=== PATIENT | male | born 1995 | race Caucasian/White ===

== ENCOUNTER 2020-06-03 14:06 | Emergency (ER) | payer MEDICAID, SELFPAY ==
[2020-06-03 14:14] VITALS: BP 156/90; PULSE 98; RESP 18; TEMP 36.6; O2SAT 98; BMI 33.9
--- NOTE | 2020-06-03 14:14 | ED.GENADULT ---
HPI - General Adult General Chief complaint: Skin/Abscess/Foreign Body <Mary Vega NP - Last Filed: 06/03/20 14:16> Stated complaint: abscess of neck <Mary Vega NP - Last Filed: 06/03/20 14:16> Time Seen by Provider: 06/03/20 14:11 <Mary Vega NP - Last Filed: 06/03/20 14:16> Source: patient <DENG De León - Last Filed: 06/03/20 15:36> Mode of arrival: ambulatory <DENG De León Last Filed: 06/03/20 15:36> History of Present Illness HPI narrative: 25-year-old male with past medical history of asthma, intellectual disability, ROSHAN, seizures, presenting to the ED complaining of abscess/infection to right neck. Admits was seen at clinic 2 days ago, prescribed doxycycline which she has taken 4 doses of without relief, went back to clinic today for re-evaluation and was sent to ED for I&D. Admits abscess started draining yesterday. Denies fever, chills <DENG De León Last Filed: 06/03/20 15:36> Onset (ago): day(s) <DENG De León Last Filed: 06/03/20 15:36> Related Data Home medications: Previous Rx's Medication Instructions Recorded cephalexin 500 mg PO QID 7 Days #28 cap 06/03/20 <WOOD Stock Last Filed: 06/03/20 14:16> Allergies/adverse reactions: Allergies Allergy/AdvReac Type Severity Reaction Status Date / Time No Known Allergies Allergy Unverified 10/30/19 18:43 lactose intolerance Allergy Unknown Uncoded 11/15/18 00:00 <Mary Vega NP - Last Filed: 06/03/20 14:16> Review of Systems Review of Systems: Constitutional: No Fever, No Chills Cardiovascular: No Chest Pain, No SOB Respiratory: No Cough Skin: +abscess <DENG De León Last Filed: 06/03/20 15:36> Yes all other systems are reviewed and are negative <DENG De León Last Filed: 06/03/20 15:36> [facility] Past Medical History Attestation statement: The following information was validated with the patient. <DENG De León - Last Filed: 06/03/20 15:36> Medical History: Medical History (Updated 06/03/20 @ 15:26 by DENG De León) Asthma Intellectual disability ROSHAN (obstructive sleep apnea) Seizure <Mary Vega NP - Last Filed: 06/03/20 14:16> Social History Social History: Social History Advance Directives: Yes Advance Directives Information Provided: Yes Advance Directives on File: No <Mary Vega NP - Last Filed: 06/03/20 14:16> Physical Exam Vital Signs: Vital Signs: Last Vital Signs Temp 98 F 06/03/20 14:14 Pulse 98 06/03/20 14:14 Resp 18 06/03/20 14:14 BP 156/90 H 06/03/20 14:14 Pulse Ox 98 06/03/20 14:14 Body Mass Index 33.9 <Mary Vega NP - Last Filed: 06/03/20 14:16> Vital Signs: Last Vital Signs Temp 98 F 06/03/20 14:14 Pulse 98 06/03/20 14:14 Resp 18 06/03/20 14:14 BP 156/90 H 06/03/20 14:14 Pulse Ox 98 06/03/20 14:14 Body Mass Index 33.9 <DENG De León - Last Filed: 06/03/20 15:36> Const: General: cooperative, healthy appearing and no acute distress <DENG De León - Last Filed: 06/03/20 15:36> Limitations: no limitations <DENG De León - Last Filed: 06/03/20 15:36> HENMT: Head: Yes normal to inspection <DENG De León - Last Filed: 06/03/20 15:36> Ears: hearing grossly normal bilaterally <DENG De León - Last Filed: 06/03/20 15:36> General nose exam: Normal external nose present <DENG De León - Last Filed: 06/03/20 15:36> Face and sinus: Yes normal facial exam <DENG De León - Last Filed: 06/03/20 15:36> Eyes: General: appearance normal, both eyes and all related structures <DENG De León - Last Filed: 06/03/20 15:36> EOM: EOMs intact bilaterally <DENG De León - Last Filed: 06/03/20 15:36> Neck: Neck: Yes normal visual inspection and Yes no meningeal signs <DENG De León - Last Filed: 06/03/20 15:36> Resp: Effort & Inspection: normal respiratory effort <DENG De León - Last Filed: 06/03/20 15:36> Cardio: Rate: regular rate <DENG De León - Last Filed: 06/03/20 15:36> Skin: Other: + draining abscess noted to right superior neck with central fluctuance, surrounding induration and cellulitis. <DENG De León - Last Filed: 06/03/20 15:36> Neuro: General: no meningeal signs <DENG De León - Last Filed: 06/03/20 15:36> Gait exam (Neuro): Normal gait present <DENG De León - Last Filed: 06/03/20 15:36> Extrem: General: Yes normal to inspection <DENG De León - Last Filed: 06/03/20 15:36> Course Course Course Narrative: 1414-This is a rapid medical exam. Abscess to right sided neck since sunday. No fevers/chills. Seen at [facility] and started on doxycyline BID, took 4 doses but no better. Will need I&D. HD stable. Deferred additional HPI, ROS, and PE to primary provider. <Mary Vega NP - Last Filed: 06/03/20 14:16> Procedures Abscess I/D Site: neck <DENG De León - Last Filed: 06/03/20 15:36> Side (if applicable): right <DENG De León - Last Filed: 06/03/20 15:36> Local Anesthetic: lidocaine 1% <DENG De León - Last Filed: 06/03/20 15:36> Amount of anesthesia used (mL): 4 <DENG De León - Last Filed: 06/03/20 15:36> Technique: incised with blade <DENG De León - Last Filed: 06/03/20 15:36> Sent for culture/gram staining?: No <DENG De León - Last Filed: 06/03/20 15:36> Packing used?: none <DENG De León - Last Filed: 06/03/20 15:36> Medical Decision Making MDM Narrative Medical decision making narrative: On exam VSS, NAD/well-appearing, physical exam as above. Will I & D abscess, and at Keflex to regimen. Patient should be re-evaluated in 2 days <DENG De León - Last Filed: 06/03/20 15:36> Discharge Plan Discharge Clinical Impression: Abscess of skin or subcutaneous tissue, Cellulitis <Mary Vega NP - Last Filed: 06/03/20 14:16> Patient Disposition: Home, Self-Care <Mary Vega NP - Last Filed: 06/03/20 14:16> Instructions: Cellulitis (ED), Abscess (ED) <Mary Vega NP - Last Filed: 06/03/20 14:16> Additional Instructions: Your abscesses drained today in the ED. Continue taking previously prescribed doxycycline, in addition take Keflex. You need to be re-evaluated in 2 days. The area is worsening, growing, or you have fevers return to the ED sooner Leyla abscesos se drenaron hoy en el servicio de urgencias. Contin?e tomando doxiciclina previamente recetada, adem?s tome Keflex. Debe ser reevaluado en 2 d?as. El ?catalina est? empeorando, creciendo o tiene fiebre y regresa antes al servicio de urgencias. <Mary Vega NP - Last Filed: 06/03/20 14:16> Prescriptions: New cephalexin 500 mg capsule 500 mg PO QID 7 Days Qty: 28 RF: 0 <WOOD Stock Last Filed: 06/03/20 14:16> Referrals: [facility] [Primary Care Provider] - 2 days (For abscess check) <Mary Vega MACHINE HOSE CUTTER - Last Filed: 06/03/20 14:16> Print Language: Slovak <Mary Vega NP - Last Filed: 06/03/20 14:16>
[2020-06-03] MEDS: Lidocaine HCl 1 % MPF 5 ML VIAL SUBCUT (14:49)
== END 2020-06-03 15:45 | disposition home or self-care (01) ==
PROVIDERS: Emergency Provider Emergency Medicine
DX: L02.11 Cutaneous abscess of neck (principal); M54.2 Cervicalgia; Z79.899 Other long term (current) drug therapy
CPT/HCPCS: 10060; 99283; 99284

== ENCOUNTER 2021-01-18 09:55 | Outpatient (REF) | payer MEDICAID, SELFPAY ==
--- NOTE | 2021-01-18 16:29 | MHC.AU.AEV ---
Adult Audiological Evaluation Date of Visit: 01/18/21 Compliance Field Technician Used: Beninese- By Phone Reason for Appointment: Audiological evaluation due to concern for decreased hearing in the left ear. Mr. Manning is developmentally delayed and was accompanied by his mother, who provided most of today's history and communication. She notes that he has been complaining that his left ear feels blocked. He has had cerumen removed in the past. She also notes that he turns the volume on the TV up very loud. Does patient feel they have a hearing loss?: Yes If Yes, Which Ear?: Left Ear Has hearing been tested previously?: No Ear History: Recent Ear Pain: Left Ear Family History of Hearing Loss?: Yes Blocked/Full Sensation in Ear(s): Left Ear Medical History: Medical History: Developmental Disorder/Delay Medical History: Allergies, sinus congestion, history of seizure disorder, asthma, TMJ, impulse control disorder Allergies: Lactose intolerance Medication List: Abilify 5 mg daily, Flurazepam HCl 30 mg PRN, clonazepam 1 mg twice daily, doxepin HCl 75 mg daily, Loratadine 10 mg daily, Proair HFA 90 mcg PRN, Flovent HFA 220 mcg twice daily, Fluticasone propionate 50 mcg/actuation one spear in each nostril daily, Famotidine 20 mg twice daily, Carafate 1 g/10 mL 4 times daily, Cholestyramine light 4 g 3x daily, Vitamin D2 1,250 mcg daily Otoscopy: Right Ear: Unremarkable, clear canals Left Ear: Unremarkable, clear canals Tympanometry: Tympanometry performed due to: To assess integrity of the middle ear system Right Ear: Reduced Middle Ear Compliance (Type As) Left Ear: Reduced Middle Ear Compliance (Type As) Otoacoustic Emissions Frequency Range Used: 1.6-8 kHz Right Ear Results: Present 2.0-3.6 & 6.3-7.1 kHz. Reduced 1.6, 4.0-5.6, & 8.0 kHz. Analysis: Reduced/absent emissions may be consequence of middle ear dysfunction Left Ear Results: Present 1.6-2, 3.6, & 5.6-7.1 kHz. Reduced 2.5-3.2, 4-5 & 8 kHz Analysis: Reduced/absent emissions may be consequence of middle ear dysfunction Hearing Evaluation: Transducer(s) Used: Insert Earphones, Soundfield Method: Conventional Audiometry, Visual Reinforcement Audiometry (VRA), Conditioned Play Audiometry Stimuli Used: Pure tones, FRESHNoise Description of Hearing: Attempted conventional audiometry, VRA, and conditioned play audiometry under insert headphones. Could not condition Bruce or get him to participate in any of the tasks. Speech Awareness Threshold (SAT): Soundfield: Obtained a speech awareness threshold of 25 dBHL in the soundfield for at least the better ear using VRA. Speech Recognition Threshold (SRT): Method Used: Recorded Lists Stimuli Used: Beninese Trisyllable Words Right Ear: Attempted, but would not repeat the words Left Ear: Attempted, but would not repeat the words Interpretation of Results: Middle-ear dysfunction can make ears feel full and blocked, and can cause a decrease in hearing sensitivity. Recommendations: Referral to Ear, Nose, and Throat to address middle ear dysfunction. Diagnosis: Primary Diagnosis: H69.93 Unspecified Eustachian Tube Dysfunction, Bilateral Services Performed: Visual Reinforcement Audiometry (CPT 13506) Diagnostic Otoacoustic Emissions (CPT 69805, 26+TC) Tympanometry (CPT 92507) Signature: Provider: Rose Gorman, CCC-A
== END 2021-01-18 09:56 | disposition home or self-care (01) ==
LOC: HO.SH 09:55
PROVIDERS: Visit Provider Family Medicine
DX: H69.93 Unspecified Eustachian tube disorder, bilateral (principal)
CPT/HCPCS: 92567; 92579; 92588

== ENCOUNTER → 2021-03-08 15:33 | Outpatient (BNVA) | payer MEDICAID, SELFPAY | PROVIDERS: PCP Family Medicine; Referring Provider Family Medicine; Visit Provider Psychiatry & Neurology Neurology ==

== ENCOUNTER → 2021-03-09 10:08 | Outpatient (BNVA) | payer MEDICAID, SELFPAY | PROVIDERS: PCP Family Medicine; Visit Provider Psychiatry & Neurology Neurology | DX: G47.33 Obstructive sleep apnea (adult) (pediatric) (principal); G25.81 Restless legs syndrome | CPT/HCPCS: 99202 ==

== ENCOUNTER 2021-05-12 15:09 | Outpatient (REF) | payer MEDICAID, SELFPAY ==
--- NOTE | ~2021-05-12 | CT_ITS ---
EXAMINATION: CT HEAD WITH AND WITHOUT IV CONTRAST CT NECK WITH CONTRAST INDICATION: Hearing loss and localized swelling/mass/lump in the neck. COMPARISON: None available. TECHNIQUE: First, a noncontrast CT of the head is obtained. Next, postcontrast imaging of the head and neck are acquired following the administration of 85 mL of Omnipaque 350 intravenous contrast without complication. This CT examination was performed using dose optimization techniques as appropriate, variously including the following: *Automated exposure control *Adjustment of mA and/or kV according to patient size (this includes techniques or standardized protocols for targeted exams where dose is matched to indication/reason for exam; i.e. extremities or head) *Use of iterative reconstruction technique FINDINGS: No pathologic enhancement intracranially. No definite enhancing CP angle mass. There is no intracranial hemorrhage, hydrocephalus, extra-axial surface collection, midline shift, or other herniation pattern. Redman to white matter differentiation is diffusely maintained without evidence of an evolved acute territorial infarct. The basilar cisterns are preserved. No significant soft tissue abnormality. No acute osseous abnormality. The paranasal sinuses and the mastoid air cells are well aerated. Significant periapical lucency adjacent to the root of the left lateral maxillary incisor as well as the roots of the right first mandibular molar. No cervical lymphadenopathy. The parotid glands are homogeneous in attenuation. A palpable marker has been placed on the left face on the skin overlying the left parotid gland. There is some subtle stranding within the subcutaneous fat just posterior to this location adjacent to the posterior aspect of the superficial left parotid lobe that could reflect mild parotitis. No radiopaque calculi along Stensen's duct. There are a few small intraparotid and periparotid lymph nodes bilaterally that maintain their fatty anne. Accessory parotid tissue superficial to the masseter muscles bilaterally. The submandibular glands are normal. The thyroid gland is normal. No contour abnormality or pathologic enhancement is seen within the oral cavity or pharyngeal mucosal space. No retropharyngeal fluid collection is seen. The laryngeal structures are normal. The parapharyngeal fat is preserved. The carotid sheath vasculature opacify normally. Retropharyngeal course of the proximal right cervical internal carotid artery. No extra mucosal soft tissue mass or fluid collection is seen. The superior mediastinum is unremarkable. The lung apices are clear. The mastoid air cells and visualized portions of the paranasal sinuses are well-aerated. CT/CT soft tissue neck w con IMPRESSION: - No acute intracranial findings. No pathologic enhancement intracranially. No definite structural explanation for hearing loss identified on CT. - A palpable marker has been placed on the left face on the skin overlying the left parotid gland. There is some subtle stranding within the subcutaneous fat just posterior to this location adjacent to the posterior aspect of the superficial left parotid lobe that could reflect mild parotitis. No radiopaque calculi along Stensen's duct. There are a few small intraparotid and periparotid lymph nodes bilaterally that maintain their fatty anne. Accessory parotid tissue superficial to the masseter muscles bilaterally. - Significant periapical lucency adjacent to the root of the left lateral maxillary incisor as well as the roots of the right first mandibular molar.
[2021-05-12] MEDS: iohexoL 350 MG/ML 100 ML INFUS..BTL IV (16:31)
== END 2021-05-12 15:10 | disposition home or self-care (01) ==
LOC: HO.CT 15:09
PROVIDERS: PCP Family Medicine; Visit Provider Family Medicine
DX: H91.90 Unspecified hearing loss, unspecified ear (principal); R22.1 Localized swelling, mass and lump, neck
CPT/HCPCS: 70470; 70491; Q9967

== ENCOUNTER → 2022-06-21 09:52 | Outpatient (REF) | payer MEDICAID, SELFPAY | LOC: HO.SL 09:52 | PROVIDERS: PCP Family Medicine; Visit Provider Nurse Practitioner Family | DX: G25.81 Restless legs syndrome (principal); G47.33 Obstructive sleep apnea (adult) (pediatric) | CPT/HCPCS: 95806 ==

== ENCOUNTER 2023-03-06 17:27 | Outpatient (REF) | payer MEDICAID, SELFPAY | END 2023-03-06 17:28 | disposition home or self-care (01) | LOC: HO.HHCLNP 17:27 | PROVIDERS: Visit Provider Internal Medicine | DX: N47.1 Phimosis (principal) | CPT/HCPCS: 87086 ==

== ENCOUNTER 2023-04-19 11:08 | Outpatient (REF) | payer MEDICAID, SELFPAY ==
[2023-04-19 13:44] LABS: Alanine Aminotransferase 23 U/L (0-40); Albumin Level 4.4 g/dL (3.5-5.0); Alkaline Phosphatase 70 U/L (39-117); Anion Gap 12 (12-20); Aspartate Amino Transferase 30 U/L (5-37); Bilirubin Total 0.4 mg/dL (0.0-1.0); Blood Urea Nitrogen 9 mg/dL (9-16); Calcium 9.5 mg/dL (8.4-10.2); Carbon Dioxide 22 mmol/L (22-29); Chloride 107 mmol/L (96-108); Cholesterol 197 mg/dL (<200); Estimated Average Glucose 108 mg/dL; Estimated Glomerular Filt Rate > 60; Glucose Random 87 mg/dL (60-115); HDL Cholesterol 35 mg/dL (>40); Hemoglobin A1c % 5.4 % (<6.0); LDL Cholesterol Calculated 148 mg/dL (<100); Potassium 5.2 mmol/L (3.3-5.1); Sodium 136 mmol/L (135-145); TSH reflex Free T4 0.48 uIU/mL (0.32-4.0); Total Protein 8.2 g/dL (6.5-8.0); Triglycerides 73 mg/dL (<150)
[2023-04-19 14:20] LABS: Reflex LDLD? No
== END 2023-04-19 11:09 | disposition home or self-care (01) ==
LOC: HO.HHCL 11:08
PROVIDERS: Visit Provider Family Medicine
DX: R03.0 Elevated blood-pressure reading, without diagnosis of hypertension (principal); R73.03 Prediabetes
CPT/HCPCS: 36415; 80053; 80061; 83036; 84443

== ENCOUNTER 2023-04-30 15:21 | Outpatient (AMB) | payer MEDICAID, SELFPAY ==
--- NOTE | 2023-04-30 15:23 | MHC.OFFVIS ---
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 Required: Yes Accompanied by: Unknown Allergies No Known Allergies Allergy (Verified 04/30/23 16:11) lactose intolerance Allergy (Unknown, Uncoded 04/30/23 16:11) Unknown Medication List - Last Reconciled 04/30/23 by KEVIN Jimenez albuterol sulfate 90 mcg/actuation (Ventolin HFA) 2 puffs inhalation Q4H PRN clotrimazole-betamethasone 1-0.05 % 1 appl topical BID 4 weeks lorazepam 0.5 mg PO BID PRN losartan 12.5 mg PO QAM mometasone 200 mcg/actuation (Asmanex HFA) 1 puff inhalation BID quetiapine 50 mg PO BEDTIME zolpidem 10 mg PO DAILY PRN HPI HPI Comments History of Present Illness Details Bruce is a 28-year-old [place]ian male patient of Dr. Conde was accompanied by his mom at today's office visit. He has a PMH of obstructive sleep apnea, hypertension, intellectual disability, asthma, and seizures. He presents to the office today as a new patient for phimosis. Patient with a history of intellectual disability and his mother provides most if not all of today's information. She reports patient has had multiple inguinal hernia surgeries in the past and feels this has made his phimosis worse. In assessment of the patient today foreskin is retractable. Phimosis grade 2-3 noted. With retraction of foreskin patient does report pain. Patient's mother otherwise denies patient to report any bothersome urinary issues or concerns. He has had no penile surgeries and or circumcisions in the past. He is not sexually active. Discussed at length potential causes and affects of phimosis. Discussed importance of weight loss to assist with phimosis given increase in fat pad noted to pelvic area. In office urinalysis results reviewed with the patient and his mother today. He otherwise offers no other issues or concerns at this time. ON LICENSE OF [facility] Medical History ROSHAN (obstructive sleep apnea) Intellectual disability Asthma Seizure Surgical History History of hernia surgery Family History Father Diabetes Mother Diabetes Arthritis Depression Social History Alcohol intake: never Patient Tobacco Use Status: Never used Tobacco Review of Systems Const Reports as per HPI Eyes Reports no additional complaints ENT Reports no additional complaints Card Reports as per HPI Resp Reports as per HPI GI Reports no additional complaints Reports as per HPI Musc Reports no additional complaints Neuro Reports as per HPI Psych Reports no additional complaints Endo Reports no additional complaints Fransisco/Lymph Reports no additional complaints Aller/Immun Reports no additional complaints Physical Exam Const General: cooperative, healthy appearing, comfortable, no acute distress, well developed, alert and awake Nutritional Appearance: overweight Orientation/consciousness: oriented to person Limitations: language barrier HEENT Head: Yes normal to inspection, Yes normocephalic and Yes atraumatic Eyes General: appearance normal, both eyes and all related structures Chest Chest palpation & inspection: normal inspection of the chest Resp Effort & Inspection: normal respiratory effort and able to speak in complete sentences GI Inspection: Yes normal to inspection and Yes Abdominal panniculus present General: Yes CVA tenderness Male General Exam: Yes normal external exam Penis: uncircumcised and phimosis Meatus: meatus normal Scrotum: scrotum normal Testes: Testes normal Back/Spine/Pelvis Back: CVA tenderness Neuro General: oriented to person Extrem General: Yes normal to inspection Psych Appearance: well kempt Mental Status: other (Intellectual disability) Speech and movement: Clear speech present Attitude: cooperative Thought process: Perseverating thought process present Insight: Limited insight present (Psych) Judgement: Limited judgement present (Psych) Results AMB Urinalysis, Automated UA Leukoctes 0 Kalli/uL Last Edit by Enertiv on 04/30/23 15:47 UA Nitrite Negative Last Edit by Enertiv on 04/30/23 15:47 UA Urobilinogen 0.2 mg/dL Last Edit by Enertiv on 04/30/23 15:47 UA Protein 15 mg/dL Last Edit by Enertiv on 04/30/23 15:47 UA pH 6.0 Last Edit by Enertiv on 04/30/23 15:47 UA Blood 0 Rell/uL Last Edit by [employer] on 04/30/23 15:47 UA Specific [place] 1.025 Last Edit by Santoshcherelleenid Tsangedil on 04/30/23 15:47 UA Ketone Negative Last Edit by Santoshhcerelleenid Tsangedil on 04/30/23 15:47 UA Bilirubin 0 mg/dL Last Edit by Santoshcherelleenid Tsangedil on 04/30/23 15:47 UA Glucose 0 mg/dL Last Edit by Wiliam Trinhedil on 04/30/23 15:47 Results Reviewed Results Reviewed: Laboratory Last Values Urine pH (Auto) 6.0 04/30/23 15:32 Specific [place] (Auto) 1.025 04/30/23 15:32 Urine Protein (Auto) 15 mg/dL 04/30/23 15:32 Glucose (UA)(Auto) 0 mg/dL 04/30/23 15:32 Urine Ketones (Auto) Negative 04/30/23 15:32 Urine Blood (Auto) 0 Rell/uL 04/30/23 15:32 Urine Nitrite (Auto) Negative 04/30/23 15:32 Urine Bilirubin (Auto) 0 mg/dL 04/30/23 15:32 Urine Urobilinogen (Auto) 0.2 mg/dL 04/30/23 15:32 Leukocyte Esterase (Auto) 0 Kalli/uL 04/30/23 15:32 Assessment & Plan Assessment & Plan (1) Phimosis: Code(s): N47.1 - Phimosis Plan In office urinalysis results reviewed with the patient today in his mother today; as noted above. Start clotrimazole-betamethasone as discussed and prescribed. Discussed daily gentle manual retraction. Otherwise no bothersome urinary issues. Discussed possible near future circumcision however will trial steroid cream at this time as discussed and prescribed. Follow-up in 1-2 months; or sooner with any issues, concerns, and or questions. Orders: Orders AMB Urinalysis Automated Today Z13.9 - Encounter for screening, unspecified Medications: New clotrimazole-betamethasone 1-0.05 % Apply thin coat 2 times per day 1 appl topical BID 4 weeks 45 grams 0RF N48.1 - Balanitis Patient Instructions: The patient had an opportunity to ask questions regarding the treatment plan. All questions were answered. Physical exam, labs, and imaging were discussed and reviewed in detail. As well as risks, benefits, and discussion of treatment choices. No major barriers to understanding were identified. The patient expressed understanding and agreement with the above treatment plan. The patient was made aware they should contact our office by phone for worsening of their current condition, the appearance of new symptoms, or with any questions or concerns. Compliance is encouraged with any medications and follow up testing that is ordered. It is a privilege to be allowed the opportunity to participate in? your urological care.? Again, if you have any questions or concerns If you have any questions or concerns please do not hesitate to contact me. The office is [phone]. This note is constructed using voice recognition software. While every effort has been made to ensure accuracy senior mainframe programmer analyst errors may have been included. Yours sincerely, KEVIN Jimenez Coding Level of Care Code New Pt Level 4 (17804) Diagnoses Phimosis N47.1
== END 2023-04-30 15:51 | disposition home or self-care (01) ==
LOC: HO.HUSH 15:21
PROVIDERS: PCP Family Medicine; Visit Provider Nurse Practitioner Family
DX: N47.1 Phimosis (principal); Z13.9 Encounter for screening, unspecified
CPT/HCPCS: 99204

== ENCOUNTER → 2023-04-30 15:21 | Outpatient (BNVA) | payer MEDICAID, SELFPAY | PROVIDERS: PCP Family Medicine; Visit Provider Nurse Practitioner Family | DX: N47.1 Phimosis (principal) | CPT/HCPCS: 81003; 99212 ==

== ENCOUNTER 2023-06-29 09:38 | Outpatient (AMB) | payer MEDICAID, SELFPAY ==
--- NOTE | 2023-06-29 09:58 | A.OFFVIS_ITS ---
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 Conde was accompanied by his mom at today's office visit. He has a PMH of obstructive sleep apnea, hypertension, intellectual disability, asthma, and seizures. He presents to the office today for follow-up of his phimosis. In discussion with the patient and his mother today he reports compliance with clotrimazole-betamethasone 1-0.05 % as prescribed during last office visit. She reports noting foreskin is a bit more retractable however he continues with phimosis. In assessment of the patient today phimosis grade 2-3 continues to be noted. When retracting foreskin patient does report pain. Discussed further treatment options with continuation of topical steroid versus circumcision versus dorsal slit. This was discussed at length. He otherwise denies any bothersome urinary issues. He denies urinary urgency, urinary frequency, incontinence, nocturia, hematuria, dysuria, foul smelling urine, changes to urinary stream, flank pain, fever, and or chills. In office urinalysis results reviewed with the patient his mother today. Discussed importance of weight loss to assist with phimosis given increase in fat pad noted to pelvic area. He otherwise offers no other issues or concerns at this time. [facility] Medical History ROSHAN (obstructive sleep apnea) Intellectual disability Asthma Seizure Surgical History History of hernia surgery Family History Father Diabetes Mother Diabetes Arthritis Depression Social History Alcohol intake: never Patient Tobacco Use Status: Never used Tobacco Review of Systems Const Reports as per HPI Eyes Reports no additional complaints ENT Reports no additional complaints Card Reports as per HPI Resp Reports as per HPI GI Reports no additional complaints Reports as per HPI Musc Reports no additional complaints Neuro Reports as per HPI Psych Reports no additional complaints Endo Reports no additional complaints [place]/Lymph Reports no additional complaints Aller/Immun Reports no additional complaints Physical Exam Const General: cooperative, healthy appearing, comfortable, no acute distress, well developed, alert and awake Nutritional Appearance: overweight Orientation/consciousness: oriented to person Limitations: language barrier HEENT Head: Yes normal to inspection, Yes normocephalic and Yes atraumatic Eyes General: appearance normal, both eyes and all related structures Chest Chest palpation & inspection: normal inspection of the chest Resp Effort & Inspection: normal respiratory effort and able to speak in complete sentences GI Inspection: Yes normal to inspection and Yes Abdominal panniculus present General: Yes CVA tenderness Male General Exam: Yes normal external exam Penis: uncircumcised and phimosis Meatus: meatus normal Scrotum: scrotum normal Testes: Testes normal Back/Spine/Pelvis Back: CVA tenderness Neuro General: oriented to person Extrem General: Yes normal to inspection Psych Appearance: well kempt Mental Status: other (Intellectual disability) Speech and movement: Clear speech present Attitude: cooperative Thought process: Perseverating thought process present Insight: Limited insight present (Psych) Judgement: Limited judgement present (Psych) Results AMB Urinalysis, Automated UA Leukoctes 0 Kalli/uL Last Edit by Wiliam Ignacio on 06/29/23 10:14 UA Nitrite Negative Last Edit by Wiliam Ignacio on 06/29/23 10:14 UA Urobilinogen 0.2 mg/dL Last Edit by Wiliam Ignacio on 06/29/23 10:14 UA Protein 0 mg/dL Last Edit by Wiliam Ignacio on 06/29/23 10:14 UA pH 5.5 Last Edit by Faizaenid Tsangedil on 06/29/23 10:14 UA Blood 0 Rell/uL Last Edit by Wiliam Ignacio on 06/29/23 10:14 UA Specific [place] 1.015 Last Edit by Wiliam Ignacio on 06/29/23 10:14 UA Ketone Negative Last Edit by Wiliam Ignacio on 06/29/23 10:14 UA Bilirubin 0 mg/dL Last Edit by Wiliam Ignacio on 06/29/23 10:14 UA Glucose 0 mg/dL Last Edit by Wiliam Ignacio on 06/29/23 10:14 Results Reviewed Results Reviewed: Laboratory Last Values Urine pH (Auto) 5.5 06/29/23 10:03 Specific [place] (Auto) 1.015 06/29/23 10:03 Urine Protein (Auto) 0 mg/dL 06/29/23 10:03 Glucose (UA)(Auto) 0 mg/dL 06/29/23 10:03 Urine Ketones (Auto) Negative 06/29/23 10:03 Urine Blood (Auto) 0 Rell/uL 06/29/23 10:03 Urine Nitrite (Auto) Negative 06/29/23 10:03 Urine Bilirubin (Auto) 0 mg/dL 06/29/23 10:03 Urine Urobilinogen (Auto) 0.2 mg/dL 06/29/23 10:03 Leukocyte Esterase (Auto) 0 Kalli/uL 06/29/23 10:03 Assessment & Plan Assessment & Plan (1) Phimosis: Code(s): N47.1 - Phimosis Category: Medical Plan In office urinalysis results reviewed with the patient and his mother today; as noted above. Discussed at length circumcision verses topical clotrimazole-betamethasone 1-0.0 5 %. Continue clotrimazole-betamethasone 1-0.05 % Dr. Carter in to assess patient; discussed dorsal slit procedure Patient otherwise denies any bothersome urinary issues or concerns. Follow-up in 1 month; if not sooner with any issues, concerns, and or questions. Orders: Orders AMB Urinalysis Automated Today Z13.9 - Encounter for screening, unspecified Medications: Refilled clotrimazole-betamethasone 1-0.05 % Apply thin coat 2 times per day 1 appl topical BID 45 grams 0RF 4 weeks N48.1 - Balanitis Patient Instructions: The patient had an opportunity to ask questions regarding the treatment plan. All questions were answered. Physical exam, labs, and imaging were discussed and reviewed in detail. As well as risks, benefits, and discussion of treatment choices. No major barriers to understanding were identified. The patient expressed understanding and agreement with the above treatment plan. The patient was made aware they should contact our office by phone for worsening of their current condition, the appearance of new symptoms, or with any questions or concerns. Compliance is encouraged with any medications and follow up testing that is ordered. It is a privilege to be allowed the opportunity to participate in? your urological care.? Again, if you have any questions or concerns If you have any questions or concerns please do not hesitate to contact me. The office is [phone]. This note is constructed using voice recognition software. While every effort has been made to ensure accuracy doctor's assistant errors may have been included. Yours sincerely, KEVIN Jimenez Coding Level of Care Code Est Pt Level 3 (19678) Diagnoses Phimosis N47.1
== END 2023-06-29 10:36 | disposition home or self-care (01) ==
PROVIDERS: PCP Family Medicine; Visit Provider Nurse Practitioner Family
DX: Z13.9 Encounter for screening, unspecified (principal); N47.1 Phimosis
CPT/HCPCS: 99213

== ENCOUNTER → 2023-06-29 09:38 | Outpatient (BNVA) | payer MEDICAID, SELFPAY | PROVIDERS: PCP Family Medicine; Visit Provider Nurse Practitioner Family | DX: N47.1 Phimosis (principal) | CPT/HCPCS: 81003; 99212 ==

== ENCOUNTER 2023-08-14 10:57 | Outpatient (AMB) | payer MEDICAID, SELFPAY ==
--- NOTE | 2023-08-14 11:04 | A.OFFVIS_ITS ---
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 Conde was accompanied by his mom at today's office visit. He has a PMH of obstructive sleep apnea, hypertension, intellectual disability, asthma, and seizures. He presents to the office today for follow-up of his phimosis. In discussion with the patient and his mother today he reports compliance with clotrimazole-betamethasone 1-0.05 % as prescribed during last office visit and has had no improvement. She reports compliance with cream as prescribed over the last 4 months and feels foreskin continues to be difficult to retract. In assessment of the patient today phimosis grade 2-3 continues to be noted. When retracting foreskin patient does report pain. Discussed further treatment options with continuation of topical steroid versus circumcision versus dorsal slit. This was discussed at length. He otherwise denies any bothersome urinary issues. He denies urinary urgency, urinary frequency, incontinence, nocturia, hematuria, dysuria, foul smelling urine, changes to urinary stream, flank pain, fever, and or chills. In office urinalysis results reviewed with the patient his mother today. Discussed importance of weight loss to assist with phimosis given increase in fat pad noted to pelvic area. He otherwise offers no other issues or concerns at this time. [facility] Medical History ROSHAN (obstructive sleep apnea) Intellectual disability Asthma Seizure Surgical History History of hernia surgery Family History Father Diabetes Mother Diabetes Arthritis Depression Social History Alcohol intake: never Patient Tobacco Use Status: Never used Tobacco Review of Systems Const Reports as per HPI Eyes Reports no additional complaints ENT Reports no additional complaints Card Reports as per HPI Resp Reports as per HPI GI Reports no additional complaints Reports as per HPI Musc Reports no additional complaints Neuro Reports as per HPI Psych Reports no additional complaints Endo Reports no additional complaints [place]/Lymph Reports no additional complaints Aller/Immun Reports no additional complaints Physical Exam Const General: cooperative, healthy appearing, comfortable, no acute distress, well developed, alert and awake Nutritional Appearance: overweight Orientation/consciousness: oriented to person Limitations: language barrier HEENT Head: Yes normal to inspection, Yes normocephalic and Yes atraumatic Eyes General: appearance normal, both eyes and all related structures Chest Chest palpation & inspection: normal inspection of the chest Resp Effort & Inspection: normal respiratory effort and able to speak in complete sentences GI Inspection: Yes normal to inspection and Yes Abdominal panniculus present General: Yes CVA tenderness Male General Exam: Yes normal external exam Penis: uncircumcised and phimosis Meatus: meatus normal Scrotum: scrotum normal Testes: Testes normal Back/Spine/Pelvis Back: CVA tenderness Neuro General: oriented to person Extrem General: Yes normal to inspection Psych Appearance: well kempt Mental Status: other (Intellectual disability) Speech and movement: Clear speech present Attitude: cooperative Thought process: Perseverating thought process present Insight: Limited insight present (Psych) Judgement: Limited judgement present (Psych) Results AMB Urinalysis, Automated UA Leukoctes 0 Kalli/uL Last Edit by Lidia Lewis CMA on 08/14/23 11:15 UA Nitrite Negative Last Edit by Lidia Lewis CMA on 08/14/23 11:15 UA Urobilinogen 0.2 mg/dL Last Edit by Lidia Lewis CMA on 08/14/23 11:1 5 UA Protein 0 mg/dL Last Edit by Lidia Lewis CMA on 08/14/23 11:15 UA pH 6.0 Last Edit by Lidia Lewis CMA on 08/14/23 11:15 UA Blood 0 Rell/uL Last Edit by Lidia Lewis CMA on 08/14/23 11:15 UA Specific [place] 1.020 Last Edit by Lidia Lewis CMA on 08/14/23 11: 15 UA Ketone Negative Last Edit by Lidia Lewis CMA on 08/14/23 11:15 UA Bilirubin 0 mg/dL Last Edit by Lidia Lewis CMA on 08/14/23 11:15 UA Glucose 0 mg/dL Last Edit by Lidia Lewis CMA on 08/14/23 11:15 Results Reviewed Results Reviewed: Laboratory Last Values Urine pH (Auto) 6.0 08/14/23 11:13 Specific [place] (Auto) 1.020 08/14/23 11:13 Urine Protein (Auto) 0 mg/dL 08/14/23 11:13 Glucose (UA)(Auto) 0 mg/dL 08/14/23 11:13 Urine Ketones (Auto) Negative 08/14/23 11:13 Urine Blood (Auto) 0 Rell/uL 08/14/23 11:13 Urine Nitrite (Auto) Negative 08/14/23 11:13 Urine Bilirubin (Auto) 0 mg/dL 08/14/23 11:13 Urine Urobilinogen (Auto) 0.2 mg/dL 08/14/23 11:13 Leukocyte Esterase (Auto) 0 Kalli/uL 08/14/23 11:13 Assessment & Plan Assessment & Plan (1) Phimosis: Code(s): N47.1 - Phimosis Category: Medical Plan: Risks, benefits and alternatives to therapy were discussed. These include but are not limited to infection, bleeding, damage to local organs and tissues, need for further interventions. ? Anesthetic risks regarding cardiac arrhythmia, blood clots, and potential mortality were discussed. The patient understands the typical recovery time and the outpatient nature of the procedure. After consideration of these risks the patient gives full informed consent and they wish to move ahead with the procedure. Plan In office urinalysis results reviewed with the patient today; as noted above. No improvement in phimosis with clotrimazole-betamethasone. Discussed continuation of medication versus dorsal slit procedure, versus circumcision; risks and benefits of these interventions were discussed at length. Will schedule for dorsal slit procedure. Patient and mother otherwise denies any bothersome urinary issues. Follow-up post-procedure per doctor's orders; or sooner with any issues, concerns, and or questions. Orders: Orders AMB Urinalysis Automated Today Z13.9 - Encounter for screening, unspecified Patient Instructions: The patient had an opportunity to ask questions regarding the treatment plan. All questions were answered. Physical exam, labs, and imaging were discussed and reviewed in detail. As well as risks, benefits, and discussion of treatment choices. No major barriers to understanding were identified. The patient expressed understanding and agreement with the above treatment plan. The patient was made aware they should contact our office by phone for worsening of their current condition, the appearance of new symptoms, or with any questions or concerns. Compliance is encouraged with any medications and follow up testing that is ordered. It is a privilege to be allowed the opportunity to participate in? your urological care.? Again, if you have any questions or concerns If you have any questions or concerns please do not hesitate to contact me. The office is [phone]. This note is constructed using voice recognition software. While every effort has been made to ensure accuracy seed laboratory technician errors may have been included. Yours sincerely, KEVIN Jimenez Coding Level of Care Code Est Pt Level 4 (80559) Diagnoses Phimosis N47.1
== END 2023-08-14 11:36 | disposition home or self-care (01) ==
PROVIDERS: PCP Family Medicine; Visit Provider Nurse Practitioner Family
DX: N47.1 Phimosis (principal); Z13.9 Encounter for screening, unspecified
CPT/HCPCS: 99214

== ENCOUNTER → 2023-08-14 10:57 | Outpatient (BNVA) | payer MEDICAID, SELFPAY | PROVIDERS: PCP Family Medicine; Visit Provider Nurse Practitioner Family | DX: N47.1 Phimosis (principal); Z13.9 Encounter for screening, unspecified | CPT/HCPCS: 81003; 99212 ==

== ENCOUNTER 2023-09-17 09:16 | Day surgery (SDC) | payer MEDICAID, SELFPAY ==
[2023-09-13 09:09] VITALS: BMI 39.4
[2023-09-17] VITALS (8 sets, daily range): BP systolic 132–143; BP diastolic 84–97; PULSE 73–95; RESP 16; TEMP 36.2–36.7; O2SAT 94–99; BMI 40.8
[2023-09-17] MEDS: Lactated Ringers 1,000 ML 100 ML IVCONT (11:55)
--- NOTE | 2023-09-17 13:53 | MHC.SHP ---
Pre-Procedural Eval Section A - 24 Hr Update-Section A only Date of Service: 09/17/23 The patient is an INPATIENT: No Changes since office visit: No Cold of Flu in the past 2 weeks, No New Medical Problems, No Changes in Medication and No Patient answered all questions The patient has been examined within 24 hours of the surgical procedure. The History & Physical has been completed within 30 days and I have reviewed it.: Yes Section B - Complete if H&P > 30 days Chief Complaint: Phimosis Allergies: Allergies Allergy/AdvReac Type Severity Reaction Status Date / Time No Known Allergies Allergy Verified 06/29/23 10:35 lactose intolerance Allergy Unknown Unknown Uncoded 06/29/23 10:35 Plan Diagnosis/Plan: Unchanged (dorsal slit) I have reviewed the history and physical and performed a pertinent physical examination on my patient. No changes have occurred unless specified. Time Spent With Patient Time: Total time managing care of this patient today ____ minutes.
--- NOTE | 2023-09-17 14:37 | P.CONAN_ITS ---
COUNT INCLUDES THE [facility] Active Problems Active Problems: All Active Problems Phimosis (Acute) Restless legs syndrome (Acute) Obstructive sleep apnea (Acute) Past Medical History Medical History ROSHAN (obstructive sleep apnea) Intellectual disability Asthma Seizure Functional capacity: independent ambulation Family History Family History Father Diabetes Mother Diabetes Arthritis Depression Family history of problems with anesthesia: No Surgical History Surgical History History of hernia surgery History of Problems with Anesthesia: No Social History Social History Alcohol intake: never Comment: COUNTS CORRECT Patient Tobacco Use Status: Never used Tobacco Meds Allergies Allergy/AdvReac Type Severity Reaction Status Date / Time No Known Allergies Allergy Verified 06/29/23 10:35 lactose intolerance Allergy Unknown Unknown Uncoded 06/29/23 10:35 Active Medications: Current Medications Lactated Ringer's (Lr) 1,000 mls @ 100 mls/hr IVCONT .Q10H ALEXEY Last Admin: 09/17/23 11:55 Dose: 100 mls/hr Home Medications ?Medication ?Instructions ?Recorded ?Confirmed ?Last Taken ?Type albuterol sulfate 90 mcg/actuation 2 puff inhalation Q4H PRN wheezing 04/30/23 Unknown History aerosol inhaler (Ventolin HFA) lorazepam 0.5 mg tablet 0.5 mg PO BID PRN anxiety 04/30/23 Unknown History losartan 25 mg tablet 12.5 mg PO QAM 04/30/23 Unknown History mometasone 200 mcg/actuation HFA 1 puff inhalation BID 04/30/23 Unknown History aerosol inhaler (Asmanex HFA) quetiapine 50 mg tablet 50 mg PO BEDTIME 04/30/23 Unknown History zolpidem 10 mg tablet 10 mg PO DAILY PRN 04/30/23 Unknown History Exam Height,Weight and Vital Signs: Height 5 ft 5 in Weight 111.13 kg Last Vital Signs Temp 98.0 F 09/17/23 11:38 Pulse 73 09/17/23 11:38 Resp 16 09/17/23 11:38 BP 143/97 H 09/17/23 11:38 Pulse Ox 99 09/17/23 11:38 O2 Del Method Room Air 09/17/23 11:38 Airway Mallampati Class: IV TM Dist: >3cm Neck ROM: Full Heart: RRR Lungs: TA Assessment and Plan Assessment Anesthesia Assessment: Anesthesia Plan Discussed Final Anesthetic Review Family History of Problems with Anesthesia: No History of Problems with Anesthesia: No ASA Class: III Final Preanesthetic Review: Meds/Allgs Chart Reviewed, Consent Obtained/Reviewed and Anes Risks/Benef Reviewed Patient Risk: Intermediate Procedure Risk: Low Anesthetic Plan Anesthetic Plan: GA Disposition: Standard PACU
--- NOTE | 2023-09-17 15:47 | HO.POSTANES ---
Post Anesthesia Evaluation Post Anesthesia Evaluation Date of Service: 09/17/23 Vital Signs: Vital Signs Temp Pulse Resp BP Pulse Ox O2 Del Method 09/17/23 15:41 97.1 F 81 16 132/93 H 99 Room Air 09/17/23 15:28 86 16 137/94 H 97 Room Air 09/17/23 15:13 85 16 134/89 96 Room Air 09/17/23 15:08 83 16 135/84 96 Room Air 09/17/23 15:03 87 16 142/85 H 95 Room Air 09/17/23 14:58 97.9 F 95 16 142/86 H 94 Room Air 09/17/23 11:38 98.0 F 73 16 143/97 H 99 Room Air Anesthesia: General LMA Mental Status: Awake Pain Control: Satisfactory Nausea/Vomiting: None Hydration: Adequate Anesthesia-Related Issues: No Anes. Related Issues
--- NOTE | 2023-09-17 16:12 | W.PM.OPN ---
Operative Note Operative Note Date of Service: 09/17/23 Narrative: PreOperative Diagnosis: Phimosis Post Operative Diagnosis: Phimosis Procedure: Dorsal slit Surgeon: Dr Sea Carter Anesthesia: General Indications for procedure: Developmental delay, morbid obesity. Has phimosis with mother unable to retract foreskin. Plan for dorsal slit given patient's size Procedure: After informed consent was verified the patient was brought to the operating room and placed in a supine position. Anesthesia was administered per protocol. The patient was prepped and draped in a sterile fashion. Safety pause time-out was performed. Antibiotics being given. Phimosis present. Prep with Betadine was completed and foreskin withdrawn Clamp placed on dorsal of phimosis. Divided by sharp scissors. Re-clamped. Sharply divided. This took the division down within 5 mm of the sulcus. 4-0 chromic suture placed add corner of incision. Each side divided in half in suture placed. Sutures were then placed in intervening quadrants 1st on the left in the right side. A total of 7 sutures used each side. Dressing consisting of Xeroform gauze placed Patient tolerated procedure well. He was extubated in its operating room transferred in stable condition to recovery area. Pathology: [] Drains: []
== END 2023-09-17 16:10 | disposition home or self-care (01) ==
PROVIDERS: PCP Family Medicine; Visit Provider Urology
PROC: (CPT 54161; principal; 2023-09-17 13:00)
DX: N47.1 Phimosis (principal); F79 Unspecified intellectual disabilities; I10 Essential (primary) hypertension; J45.909 Unspecified asthma, uncomplicated; R56.9 Unspecified convulsions; G47.33 Obstructive sleep apnea (adult) (pediatric); E73.9 Lactose intolerance, unspecified; E66.01 Morbid (severe) obesity due to excess calories; Z79.899 Other long term (current) drug therapy
CPT/HCPCS: 54161; J0690; J1100; J2250; J2405; J2704; J2795

== ENCOUNTER → 2023-09-17 09:16 | Outpatient (BNV) | payer MEDICAID, SELFPAY | PROVIDERS: PCP Family Medicine; Visit Provider Urology | DX: N47.1 Phimosis (principal) | CPT/HCPCS: 54001 ==

== ENCOUNTER 2023-12-17 10:05 | Outpatient (AMB) | payer MEDICAID, SELFPAY ==
[2023-12-17 10:10] VITALS: BP 126/86; PULSE 85; O2SAT 96; BMI 43.4
--- NOTE | 2023-12-17 10:10 | A.OFFVIS_ITS ---
Vital Signs 12/17/23 10:10 Height 5 ft 4 in Weight 253 lb BMI 43.4 BP 126/86 Blood Pressure Location Lt brachial Position Sitting Pulse 85 Pulse Source Pulse Oximeter Pulse Oximetry (%) 96 Oxygen Delivery Method Room Air Intake Visit Reasons: Follow Up Line Maintainer Required: Yes Line Maintainer Name: Zhane Mcqueen Information Interpreted: non-clinical & clinical Accompanied by: Mother Allergies No Known Allergies Allergy (Verified 12/17/23 10:12) lactose intolerance Allergy (Unknown, Uncoded 06/29/23 10:35) Unknown Medication List - Last Reconciled 12/17/23 by SMITH Mccall albuterol sulfate 90 mcg/actuation (Ventolin HFA) 2 puffs inhalation Q4H PRN clotrimazole-betamethasone 1-0.05 % 1 appl topical BID 4 weeks lorazepam 0.5 mg PO BID PRN losartan 12.5 mg PO QAM mometasone 200 mcg/actuation (Asmanex HFA) 1 puff inhalation BID quetiapine 50 mg PO BEDTIME sertraline 50 mg PO QAM zolpidem 10 mg PO DAILY PRN HPI Comments Details: 28-yr-old female presents for follow-up visit of sleep apnea. Pt was last seen by Dr Mali Nicholas in 2021. Since the last visit, in June 2022, pt underwent HST which revealed AHI 30/hr w/ O2 estefania 62% w/ SpO2 < 90% x's 52 min, SpO2 < 88% x's 33 min, and average SpO2 93% Order was written for APAP, however it appears there was miscommunication between pt's brother and the respiratory company and thus pt never received now PAP supplies. Since, pt has not been able to florin his CPAP as he does not have supplies. He continues to snore, have gasping arousals, excessive daytime sleepiness, asthma, occasional SOB. He can fall asleep when ever sitting, per mom. [facility] Medical History ROSHAN (obstructive sleep apnea) Intellectual disability Asthma Seizure Surgical History History of hernia surgery Family History Father Diabetes Mother Diabetes Arthritis Depression Social History Alcohol intake: never Patient Tobacco Use Status: Never used Tobacco Physical Exam Vital Signs: Last Vital Signs Pulse 85 12/17/23 10:10 BP 126/86 12/17/23 10:10 Pulse Ox 96 12/17/23 10:10 Oxygen Delivery Method Room Air 12/17/23 10:10 BMI result Body Mass Index 43.4 ALert awake oriented X3 Mood- stable Speech- normal Cognition- normal Const General: no acute distress Nutritional Appearance: obese Orientation/consciousness: oriented to person HEENT Other: Mallampati stage IV Resp Effort & Inspection: normal respiratory effort and able to speak in complete sentences Neuro General: oriented to person Gait exam (Neuro): Normal gait present Motor exam (neuro): 5/5 motor strength present throughout Psych Mental Status: mental status grossly normal Speech and movement: Clear speech present Attitude: cooperative Assessment & Plan Assessment & Plan (1) Severe obstructive sleep apnea: Code(s): G47.33 - Obstructive sleep apnea (adult) (pediatric) Category: Medical (2) Nocturnal hypoxemia: Code(s): G47.34 - Idiopathic sleep related nonobstructive alveolar hypoventilation Category: Medical Plan Reviewed results of June 2022 home sleep study report, results c/w severe sleep apnea and nocturnal hypoxemia. Will call [facility] to determine if pt is eligible to receive new supplies. As last sleep study was > 1 yr old, will request in-lab PSG w/ split-night PAP titration for AHI > 25 hr to determine most effective pressure/tx settings. Will follow-up upon review of above and patient to follow-up in clinic in 6 months or sooner prn. Orders: Orders RT PSG in-lab sleep study Today F79 - Unspecified intellectual disabilities, G47.33 - Obstructive sleep apnea (adult) (pediatric), G47.34 - Idiopathic sleep related nonobstructive alveolar hypoventilation Coding Level of Care Code Est Pt Level 4 (99688) Diagnoses Severe obstructive sleep apnea G47.33 Nocturnal hypoxemia G47.34 [place] Sleepiness Scale Questions Sitting and reading: high chance of dozing Watching TV: high chance of dozing Sitting inactive in a theater, movie etc.: high chance of dozing As a passenger in a car for an hour without break: high chance of dozing Lying down in the afternoon when circumstances permit: high chance of dozing Sitting and talking to someone: slight chance of dozing Sitting quietly after lunch without alcohol: high chance of dozing In a car, while stopped for a few minutes in the traffic: would never doze ESS < 10: normal, ESS > 12: pathologic: 19
== END 2023-12-17 11:02 | disposition home or self-care (01) ==
LOC: HO.HSMS 10:06
PROVIDERS: PCP Family Medicine; Visit Provider Nurse Practitioner Family
DX: G47.33 Obstructive sleep apnea (adult) (pediatric) (principal); G47.34 Idiopathic sleep related nonobstructive alveolar hypoventilation
CPT/HCPCS: 99214

== ENCOUNTER → 2023-12-17 10:05 | Outpatient (BNVA) | payer MEDICAID, SELFPAY | PROVIDERS: PCP Family Medicine; Visit Provider Nurse Practitioner Family | DX: G47.33 Obstructive sleep apnea (adult) (pediatric) (principal); G47.34 Idiopathic sleep related nonobstructive alveolar hypoventilation | CPT/HCPCS: 99212 ==

== ENCOUNTER → 2023-12-27 19:30 | Outpatient (REF) | payer MEDICAID, SELFPAY | LOC: HO.SL 19:30 | PROVIDERS: PCP Family Medicine; Visit Provider Nurse Practitioner Family | DX: G47.33 Obstructive sleep apnea (adult) (pediatric) (principal); G47.34 Idiopathic sleep related nonobstructive alveolar hypoventilation; F79 Unspecified intellectual disabilities | CPT/HCPCS: 95810 ==

== ENCOUNTER → 2023-12-27 22:11 | Outpatient (BNV) | payer MEDICAID, SELFPAY | PROVIDERS: PCP Family Medicine; Visit Provider Psychiatry & Neurology Neurology | DX: G47.33 Obstructive sleep apnea (adult) (pediatric) (principal); G47.34 Idiopathic sleep related nonobstructive alveolar hypoventilation | CPT/HCPCS: 95810 ==

== ENCOUNTER 2024-09-23 15:37 | Outpatient (REF) | payer MEDICAID, SELFPAY ==
--- NOTE | ~2024-09-23 | XR_ITS ---
EXAMINATION: XR LUMBOSACRAL SPINE CLINICAL INFORMATION: back pain COMPARISON: None available. TECHNIQUE: Three views of the lumbosacral spine. FINDINGS: There is normal lumbar lordosis. The vertebral heights, alignment and disc heights are normal. No visible acute fracture, dislocation or subluxation seen. The paravertebral soft tissues are normal. XR/XR lumbar spine 2-3V IMPRESSION: Unremarkable lumbar spine examination. Electronically signed by: Federico Caldera MD 09/23/2024 04:22 PM EDT
== END 2024-09-23 15:38 | disposition home or self-care (01) ==
LOC: HO.HHCX 15:37
PROVIDERS: PCP Family Medicine; Visit Provider Family Medicine
DX: M54.50 Low back pain, unspecified (principal); G89.29 Other chronic pain
CPT/HCPCS: 72100

== ENCOUNTER → 2024-09-23 15:42 | Outpatient (BNV) | payer MEDICAID, SELFPAY | PROVIDERS: PCP Family Medicine; Visit Provider Radiology Diagnostic Radiology | DX: M54.50 Low back pain, unspecified (principal) | CPT/HCPCS: 72100 ==

== ENCOUNTER → 2024-10-12 02:02 | Outpatient (BNV) | payer MEDICAID, SELFPAY | PROVIDERS: PCP Family Medicine; Visit Provider Student in an Organized Health Care Education/Training Program | DX: R05.9 Cough, unspecified (principal) | CPT/HCPCS: 71045 ==

== ENCOUNTER 2024-10-12 02:39 | Emergency (ER) | payer MEDICAID, SELFPAY ==
--- NOTE | ~2024-10-12 | XR_ITS ---
CLINICAL HISTORY: cough 1 view chest x-ray Comparison: None provided Findings: Heart size is magnified. No focal consolidation or pleural effusion. Osseous structures unremarkable. IMPRESSION: 1. No acute findings. This document has been electronically signed by: Davi Medina MD on 10/12/2024 03:25:16
[2024-10-12 02:51] VITALS: BP 108/67; BP 128/88; PULSE 115; PULSE 127; RESP 20; TEMP 38.1; O2SAT 96; O2SAT 97; BMI 41.6
--- OUTSIDE RECORDS SUMMARY | 2024-10-12 03:06 | XMS_ITS | Clinical Summary ---
Author Organization [employer] Address [address] [facility] 7[address] [place] [address] Care Team Providers Care Rattan Worker Name Role Phone Edith Conde MD Primary Care Provider [phone] Allergies No known active allergies Medications Acetaminophen Extra Strength 500 MG tablet TAKE 2 TABLET BY ORAL ROUTE EVERY 6 HOURS NEEDED NEEDED FOR PAIN AND/OR FEVER 06/09/19 22 Active Blood Pressure Monitoring (Omron 3 Series BP Monitor) device USE TO CHECK BLOOD PRESSURE DAILY 06/09/19 22 Active loratadine (Claritin) 10 MG tablet Take 10 mg by mouth in the morning. 06/09/19 22 Active Spacer/Aero-Hol ding Chambers (OptiChamber Laurie) misc USE DIRECTED EVERY 4 HOURS NEEDED 06/09/19 22 Active Blood Pressure Monitoring (Blood Pressure Cuff) miscIndications :Elevated blood pressure reading 1 each Once daily. 1 each 03/13/19 24 Active QUEtiapine (SEROquel) 50 MG tablet Take 50 mg by mouth at bedtime. 04/03/19 24 Active sertraline (Zoloft) 50 MG tablet Take 50 mg by mouth in the morning. 04/03/19 24 Active zolpidem (Ambien) 10 MG tablet Take 10 mg by mouth if needed at bedtime. 04/03/19 24 Active clotrimazole (Lotrimin) 1 % cream PLEASE SEE ATTACHED FOR DETAILED DIRECTIONS 28 g 1 04/12/19 24 Active albuterol 108 (90 Base) MCG/ACT inhalerIndicati ons:Moderate persistent asthma without complication Inhale 2 puffs every 4 (four) hours if needed for wheezing. 18 g 11 04/13/19 24 Active LORazepam (Ativan) 0.5 MG tablet Take 0.5 mg by mouth if needed in the morning and at bedtime for anxiety. 04/03/19 24 Active Mometasone Furoate (Asmanex HFA) 200 MCG/ACT aerosolIndicati ons:Moderate persistent asthma without complication Inhale 1 Act (200 mcg) 2 times daily. 60 Act 11 03/13/19 25 026 Active losartan (Cozaar) 25 MG tabletIndicatio ns:Elevated blood pressure reading Take 1 tablet (25 mg) by mouth Once per day. 90 tablet 3 09/24/19 25 026 Active cetirizine (ZyrTEC) 10 MG tablet Take 1 tablet (10 mg) by mouth Once per day. 90 tablet 3 09/24/19 026 Active losartan (Cozaar) 25 MG tabletIndicatio ns:Elevated blood pressure reading Take 1 tablet (25 mg) by mouth Once per day. 90 tablet 3 03/13/19 025 Discontinued(R eorder (will not trigger notification to Pharmacy)) Active Problems Problem Noted Date Diagnosed Date Hypertension 04/13/2023 Assessment & Plan (09/30/2024 12:18 PM EDT): -Goal BP < 130/80 per ACC/AHA guideline (Treatment threshold >= 140/90) -Continue working on lifestyle modifications -Recommended self-monitoring BP. They have BP monitor at home. -Increase losartan to 25 mg daily -Optimize treatment for ROSHAN -Follow up in 3-6 mo, sooner if any problem arises Assessment & Plan (04/13/2023 6:43 AM EST): -Goal BP < 140/90 per JNC-8 and < 130/80 per ACC/AHA guideline (Treatment threshold >= 140/90) -Continue working on lifestyle modifications -Recommended self-monitoring BP. They have BP monitor at home. -Increase losartan to 25 mg daily -Optimize treatment for ROSHAN -Follow up in 3-6 mo, sooner if any problem arises Chronic left ear pain 04/13/2023 Assessment & Plan (09/30/2024 12:19 PM EDT): - treated for otitis media in Feb 2023 - currently mild irritation / early otitis externa - avoid irritation Assessment & Plan (04/13/2023 6:46 AM EST): - treated for otitis media in Feb 2023 - currently mild irritation / early otitis externa - avoid irritation - Rx antibiotic otic with steroid Urinary and fecal incontinence 04/13/2023 Assessment & Plan (09/30/2024 12:21 PM EDT): - scheduled toileting - previously seeing urologist - will prescribe briefs / incontinence supply Assessment & Plan (04/13/2023 6:49 AM EST): - scheduled toileting - upcoming appointment with urologist - will prescribe briefs / incontinence supply Dependent for personal hygiene 04/13/2023 Assessment & Plan (04/13/2023 6:50 AM EST): - refer to care management team to assess further needs Prediabetes 04/13/2023 Assessment & Plan (09/30/2024 12:20 PM EDT): - last A1C 5.4% in 2023, improved. Highest A1C 5.8%. - continue working on lifestyle modifications - recheck lab Assessment & Plan (04/13/2023 6:53 AM EST): - last A1C 5.7% - continue working on lifestyle modifications - recheck lab Phimosis of penis 2023 Assessment & Plan (09/30/2024 12:22 PM EDT): - s/p circumcision by Dr. Carter in Sep 2023 Assessment & Plan (04/13/2023 6:44 AM EST): - upcoming appointment with urologist - re-send clotrimazole cream - avoid irritation Assessment & Plan (2023 2:25 PM EST): Hygiene recommendations done I will refer patient in light Of recurrent phimosis, hidden panis for evaluation of possible surgical intervention Seborrheic dermatitis 03/21/2022 Sprain of jaw 03/21/2022 Hearing loss of left ear 03/21/2022 Assessment & Plan (09/30/2024 12:18 PM EDT): -Patient had evaluation with Physician/Ophthalmologist. -Difficulty with evaluation due to patient's intellectual disability.. -Pt evaluated by ENT and was advised that her did not have significant hearing loss and had Normal Ear Exam. Assessment & Plan (04/13/2023 6:47 AM EST): -Patient had evaluation with Physician/Ophthalmologist. -Difficulty with evaluation due to patient's intellectual disability.. -Pt evaluated by ENT and was advised that her did not have significant hearing loss and had Normal Ear Exam. Assessment & Plan (03/21/2022 3:15 PM EST): -Patient had evaluation with Physician/Ophthalmologist. -Difficulty with evaluation due to patient's intellectual disability.. -Pt evaluated by ENT and was advised that her did not have significant hearing loss and had Normal Ear Exam. Obstructive sleep apnea syndrome 08/05/2014 Assessment & Plan (09/30/2024 12:23 PM EDT): - Sleep study on 06/21/22 showed severe degree of sleep apnea. AHI 30/hr and oxygen estefania 62%. Recommended to schedule a CPAP titration study or trial on APAP 5-20 cm of water and follow up to ensure compliance and therapy response. - following with [facility] Assessment & Plan (04/13/2023 6:39 AM EST): - Sleep study on 06/21/22 showed severe degree of sleep apnea. AHI 30/hr and oxygen estefania 62%. Recommended to schedule a CPAP titration study or trial on APAP 5-20 cm of water and follow up to ensure compliance and therapy response. - will check the status of his CPAP or titration study Assessment & Plan (03/26/2022 1:04 PM EST): -Will contact the Sleep Medicine Clinic regarding further evaluation and CPAP supplies. -due to his intellectual disability, it may be better for him to have an in-lab titration study. Allergic rhinitis 08/12/2013 Assessment & Plan (09/30/2024 12:19 PM EDT): - continue loratadine - consider adding Singulair - avoid 2nd hand smoke Assessment & Plan (03/26/2022 1:05 PM EST): - continue loratadine - consider adding Singulair - avoid 2nd hand smoke Asthma 07/10/2013 Assessment & Plan (09/30/2024 12:23 PM EDT): - No recent exacerbation - Current ICS: mometasone; consider SMART - Continue Albuterol prn Assessment & Plan (04/13/2023 6:40 AM EST): - No recent exacerbation - change fluticasone (Flovent) to mometasone - Continue Albuterol prn Assessment & Plan (03/21/2022 3:16 PM EST): Mother states pt has been having symptoms and pt did not have any refills on inhalers at pharmacy. -Will refill inhalers -Continue Flovent as maintenance -Continue Albuterol prn Impulse control disorder 07/10/2013 Assessment & Plan (09/30/2024 12:22 PM EDT): He has been referred to [facility] many times, but his family has a difficulty keeping appt Medications: Risperidone 0.5 mg bid; sertraline 50 mg daily; hydroxyzine 25 mg prn. Previously on lorazepam when he was in [place]. Previously seen by [facility] clinician and his mother was referred to [facility]. The family needs support in navigating social and behavioral health services. He did not want to go to Adult Day program. He wanted to work. His family is now accepting our recommendation to try day program. Assessment & Plan (04/13/2023 6:47 AM EST): He has been referred to [facility] many times, but his family has a difficulty keeping appt Medications: Risperidone 0.5 mg bid; sertraline 50 mg daily; hydroxyzine 25 mg prn. Previously on lorazepam when he was in [place]. Previously seen by [facility] clinician and his mother was referred to [facility]. The family needs support in navigating social and behavioral health services. He did not want to go to Adult Day program. He wanted to work. His family is now accepting our recommendation to try day program. Assessment & Plan (03/21/2022 3:13 PM EST): He has been referred to [facility] many times, but his family has a difficulty keeping appt Medications: Risperidone 0.5 mg bid; sertraline 50 mg daily; hydroxyzine 25 mg prn. Previously on lorazepam when he was in [place]. Previously seen by [facility] clinician and his mother was referred to [facility]. The family needs support in navigating social and behavioral health services. He did not want to go to Adult Day program. He wanted to work. His family is now accepting our recommendation to try day program. Intellectual disability 07/10/2013 Obesity 07/10/2013 Assessment & Plan (03/26/2022 1:06 PM EST): - ROSHAN - work on lifestyle modification Resolved Problems Problem Noted Date Diagnosed Date Resolved Date Acute otitis media 2023 Assessment & Plan (2023 2:26 PM EST): Acetaminophen PRN for pain Elevated blood pressure reading 2023 04/13/2023 Assessment & Plan (2023 2:24 PM EST): Blood pressure cuff prescribed Recommended low Na diet and weight reduction Plan is RTC nurse visit for BP check if blood pressure is persistently high I would start amlodipine 2.5mfg daily and f/u with PCP Encounters Date Type Department Care Team Description 09/24/2024 Results Follow-Up [facility] [address] [place] [id number] Edith Conde MD XR Lumbar Spine 2-3 Views 09/23/2024 2:30 PM EDT Office Visit [facility] [address] [place] [address] Edith Conde MD Screening for diabetes mellitus (Primary Dx); Elevated blood pressure reading; Screening for lipid disorders; Hypertension, unspecified type; Prediabetes; Diarrhea, unspecified type; Vitiligo; Discoloration of skin; Vitamin D deficiency; Increased urinary frequency; Routine screening for STI (sexually transmitted infection); Immunity status testing; Chronic bilateral low back pain without sciatica; Hearing loss of left ear, unspecified hearing loss type; Chronic left ear pain; Allergic rhinitis, unspecified seasonality, unspecified trigger; Dietary counseling; Exercise counseling; Class 3 severe obesity due to excess calories with serious comorbidity and body mass index (BMI) of 40.0 to 44.9 in adult; Urinary and fecal incontinence; Phimosis of penis; Impulse control disorder; Intellectual disability; Moderate persistent asthma without complication; Obstructive sleep apnea syndrome; Poor dentition 09/23/2024 Travel 09/22/2024 Telephone [facility] [address] [place] [phone] Edith Conde MD chartprep 09/15/2024 Patient Outreach [address] [phone] Edith Conde MD Care Coordination ([facility] outreach for SDOH food needs-referral completed /) 09/15/2024 Patient Outreach [address] [phone] Edith Conde MD Pre-visit Planning (SDOH Screening positive and Tobacco screening negative) from Last 3 Months Immunizations Immunization Administration Dates Next Due Hep B, adult 09/23/2024,04/12/2023 Influenza injectable quadriv alent IIV4 with preservative 12/21/2016,12/20/2015,03/04/2015 Influenza injectable quadriv alent preservative free 03/21/2022,12/26/2018,03/20/2018 Influenza, IIV3, injectable 11/03/2013 Pfizer Covid-19 Vaccine 12+ 04/12/2023 Pfizer Covid-19 Vaccine 12+ Bivalent 03/21/2022 Pneumococcal Conjugate PCV 20 04/12/2023 Pneumococcal Polysaccharide PPSV23 12/30/2013 Tdap 09/23/2024,05/08/2013 Varicella 07/10/2013,05/08/2013 Social History Tobacco Use Types Packs/Day Years Used Date Smoking Tobacco: Never Smokeless Tobacco: Never Tobacco Cessation:Counseling Given: Not Answered Housing Stability Answer Date Recorded What is your housing situation today? I have jj costa 09/15/[address] you li ve. Do you have problems with any of the following? None of the above 09/15/2024 Food Insecurity Answer Date Recorded Within the past 12 months, y ou worried that your food would run out before you got money to buy more: Never True 09/23/2024 Within the past 12 months,th e food you bought just didn't last and you didn't have enough money to get more: Never True 01/2025 Transportation Answer Date Recorded In the past 12 months, has l ack of transportation kept you from medical appts, meetings, work or from getting things needed for daily living? No 09/15/2024 Utilities Answer Date Recorded In the past 12 months, has t he electric, gas, oil or water company threatened to shut off services in your home? No 09/15/2024 Internet Access Answer Date Recorded Internet Access Q1 Yes 10/22/2023 Internet Access Q2 Not on file 10/22/2023 Sex and Gender Information Value Date Recorded Sex Assigned at Male 12/12/2021 10:26 AM EDT Legal Sex Male 10:26 AM EDT Gender Identity Choose not to disclose 10:26 AM EDT Sexual Orientation Choose not to disclose 2021 10:26 AM EDT Last Filed Vital Signs Vital Sign Reading Time Taken Comments Blood Pressure 130/94 09/23/2024 3:14 PM EDT Pulse 87 09/23/2024 3:14 PM EDT Temperature 36.3 C (97.3 F) 09/23/2024 3:14 PM EDT Respiratory Rate 16 09/23/2024 3:14 PM EDT Oxygen Saturation 96% 09/23/2024 3:14 PM EDT Inhaled Oxygen Concentration - - Weight 114 kg (252 lb 3.2 oz) 09/23/2024 3:14 PM EDT Height 162.6 cm (5' 4 ) 09/23/2024 3:14 PM EDT Body Mass Index 43.29 09/23/2024 3:14 PM EDT Plan of Treatment Health Maintenance Due Date Last Done Comments HIV Screening 1993 Family Planning (PISQ) 2008 HPV Vaccines (1 - 3-dose series) 2008 Hepatitis C Screening 2011 COVID-19 Vaccine ( season) 2023 04/12/2023, 03/21/2022, 01/24/2021, Additional history exists Diabetes: Hemoglobin A1C 04/18/2024 024, 01/03/2021, 08/14/2019, Additional history exists Influenza Vaccine (#1) 2024 , 12/26/2018, 03/20/2018, Additional history exists Hepatitis B Vaccines (3 of 3 - 19+ 3-dose series) 11/18/2024 09/23/2024, 04/12/2023 Alcohol/Substance Use Screening 09/23/2025 09/23/2024 Disability Screening 09/23/2025 09/23/2024 SDOH Screening 09/23/2025 09/23/2024 Tobacco Screening 09/30/2025 09/30/2024 Lipid Panel 04/18/2028 04/19/2023, 01/03/2021 DTaP/Tdap/Td Vaccines (3 - Td or Tdap) 09/23/2034 09/23/2024, 05/08/2013 Zoster Vaccines (1 of 2) 2043 RSV Patients and Patients Aged 60 years or older (1 - 1-dose 75+ series) 2068 Pneumococcal Vaccine: Pediatrics (0 to 5 Years) and At-Risk Patients (6 to 49) Years Completed 04/12/2023, 12/30/2013 Depression Screening Discontinued HIB Vaccines Aged Out No longer eligi ble based on patient's age to complete this topic Hepatitis A Vaccines Aged Out No long er eligible based on patient's age to complete this topic IPV Vaccines Aged Out No longer eligi ble based on patient's age to complete this topic Meningococcal B Vaccine Aged Out No l onger eligible based on patient's age to complete this topic Meningococcal Vaccine Aged Out No edson stacia eligible based on patient's age to complete this topic RSV under 20 months Aged Out No longe r eligible based on patient's age to complete this topic Rotavirus Vaccines Aged Out No longer eligible based on patient's age to complete this topic Procedures Procedure Name Priority Date/Time Associated Diagnosis Comments XR LUMBAR SPINE 2-3 VIEWS Routine 09/23/2024 3:11 PM EDT Chronic bilateral low back pain without sciatica HEMOGLOBIN A1C Routine 04/19/2023 11:09 AM EST Prediabetes LIPID PANEL WITH REFLEX TO DIRECT LDL Routine 04/19/2023 11:09 AM EST Elevated blood pressure reading from Last 3 Months or Most Recently Relevant to Health Maintenance Results * XR Lumbar Spine 2-3 Views (09/23/2024 3:11 PM EDT) Anatomical Region Laterality Modality Spine, L-spine Radiographic [place] ging 09/23/2024 3:11 PM EDT Narrative 09/23/2024 4:25 [place] [address] XRay Report Signed Patient: Bruce Manning MR#: [id number] : 1995 Acct:[id number] Age/Sex: 29 / M ADM Date: 09/23/24 Loc: .HHCX Attending Dr: Edith Conde MD Ordering Physician: Edith Conde MD Date of Service: 09/23/24 Procedure(s): XR lumbar spine 2-3V Accession Number(s): [id number] cc: Edith Conde MD EXAMINATION: XR LUMBOSACRAL SPINE CLINICAL INFORMATION: back pain COMPARISON: None available. TECHNIQUE: Three views of the lumbosacral spine. FINDINGS: There is normal lumbar lordosis. The vertebral heights, alignment and disc heights are normal. No visible acute fracture, dislocation or subluxation seen. The paravertebral soft tissues are normal. XR/XR lumbar spine 2-3V IMPRESSION: Unremarkable lumbar spine examination. Electronically signed by: Federico Caldera MD 09/23/2024 04:22 PM EDT Dictated By: Federico Caldera MD Signed By: <Electronically signed by Federico Caldera MD in OV> 08/12/25 1622 DD/ 1511 TD/TT: 09/23/24 1602 Historical Manuscripts Curator: FRANKY Procedure Note Donotuseinterpreter, Image - 09/23/2024 [facility] [address] [place] [address] XRay Report Signed Patient: Bruce ManningMR#: [id number] : 1995Acct:[id number] Age/Sex: 29 / MADM Date: 09/23/24 Loc: HO.HHCX Attending Dr: Edith Conde MD Ordering Physician: Edith Conde MD Date of Service: 09/23/24 Procedure(s): XR lumbar spine 2-3V Accession Number(s): [id number] cc: Edith Conde MD EXAMINATION: XR LUMBOSACRAL SPINE CLINICAL INFORMATION: back pain COMPARISON: None available. TECHNIQUE: Three views of the lumbosacral spine. FINDINGS: There is normal lumbar lordosis. The vertebral heights, alignment and disc heights are normal. No visible acute fracture, dislocation or subluxation seen. The paravertebral soft tissues are normal. XR/XR lumbar spine 2-3V IMPRESSION: Unremarkable lumbar spine examination. Electronically signed by: Federico Caldera MD 09/23/2024 04:22 PM EDT Dictated By: Federico Caldera MD Signed By: <Electronically signed by Federico Caldera MD in OV> 09/23/24 1622 DD/ 1511 TD/TT: 09/23/24 1602 Historical Manuscripts Curator: FRANKY Edith Conde MD IMG XR PROCEDURES Final Result * (ABNORMAL) Lipid Panel with Reflex to Direct LDL (04/19/2023 11:09 AM EST) Triglycerides 73 <150 mg/dL [facility] Comment:Marked HemolysisDesi rable Triglyceride: less than 150 mg/dLBorderline High Triglyceride 150-199 mg/dLHigh Triglyceride: 200-499 mg/dLVery High Triglyceride: greater than or equal to 5OO mg/dL Cholesterol 197 <200 mg/dL [facility] Comment:Marked HemolysisDesi rable Cholesterol: less than 200 mg/dLBorderline High Cholesterol: 200-239 mg/dLHigh Cholesterol: greater than 239 mg/dL LDL Cholesterol Calculated 148(H) <100 mg/dL [facility] Comment:Desirable LDL: less than 100 mg/dLNear Optimal/Above Optimal LDL: 110- 129 mg/dLBorderline High LDL: 130-159 mg/dLHigh LDL: 160-189 mg/dLVery High LDL: greater than or equal to 190 mg/dL HDL Cholesterol 35(L) >40 mg/dL [facility] Comment:Marked HemolysisDesi rable HDL: greater than 40 mg/dL Note: This HDL assay may give artificially low results in patients with liver disease. Blood 04/19/2023 11:0 9 AM EST 04/19/2023 12:57 PM EST us Edith Conde MD LAB BLOOD ORDERABLES Final Resul t [facility] [address] [place] [phone] * Hemoglobin A1c (04/19/2023 11:09 AM EST) Hemoglobin A1c 5.4 <6.0 % [facility] Comment:Hemoglobin A1C Refer ence Range Adults: 4.8 - 6.0 % Non diabetic: < 6.0 % Goal: < 7.0 %Additional Action Suggested: > 8.0 %Note: Hemoglobin A1c results are invalid for patients with abnormal amounts of HbF. Blood transfusions may impact the HbA1c concentration in the patient sample. Estimated Average Glucose 108 mg/dL [facility] Comment:eAG = Estimated ave rage glucose which is %A1C expressed asaverage glucose, using the formula of the [id number] Glucose study (ADAG), Diabetes Care, Vol.31,#8,Sep. 2007 Blood Venous blood specimen / Unknown 04/19/2023 11:09 AM EST 04/19/2023 12:57 PM EST Edith Conde MD LAB BLOOD ORDERABLES Final Resul t [facility] [address] [place] [address] [phone] from Last 3 Months or Most Recently Relevant to Health Maintenance Insurance [email or web address] Care Teams Rattan Worker Relationship Specialty Start Date End Date Edith Conde MD [address] [place], [place] PCP - General Family Medicine 02/12/18
--- OUTSIDE RECORDS SUMMARY | 2024-10-12 03:06 | XMS_ITS | Encounter Summary ---
Author Organization [employer] Address [address] [facility] [address] [place] [address] Care Team Providers Care Jump Roll Operator Name Role Phone Edith Conde MD Primary Care Provider [phone] Encounter Details Date Type Department Care Team ([facility] st Contact Info) Description 05/15/2023 Orders Only [facility] [address] [place], [place] [phone] Edith Conde MD [address] [place], [place] [phone] Vision impairment (Primary Dx) Social History Tobacco Use Types Packs/Day Years Used Date Smoking Tobacco: Never Assessed Sex and Gender Information Value Date Recorded Sex Assigned at Male 12/12/2021 10:26 AM EDT Legal Sex Male 10:26 AM EDT Gender Identity Choose not to disclose 10:26 AM EDT Sexual Orientation Choose not to disclose 2021 10:26 AM EDT documented as of this encounter Plan of Treatment Not on file documented as of this encounter Visit Diagnoses Diagnosis Vision impairment- Primary Unspecified visual loss documented in this encounter Care Teams Jump Roll Operator Relationship Specialty Start Date End Date Edith Conde MD [address] [place], [place] [phone] PCP - General Family Medicine 02/12/18 documented as of this encounter
--- OUTSIDE RECORDS SUMMARY | 2024-10-12 03:06 | XMS_ITS | Encounter Summary ---
Author Organization [employer] Address [address] [facility] [address] [place] [address] Care Team Providers Care Weed Sprayer Name Role Phone Edith Conde MD Primary Care Provider [phone] Encounter Details Date Type Department Care Team ([facility] st Contact Info) Description 09/24/2024 Results Follow-Up [facility] [address] [place] [address] Edith Conde MD [address] [place] [address] XR Lumbar Spine 2-3 Views Social History Tobacco Use Types Packs/Day Years Used Date Smoking Tobacco: Never Smokeless Tobacco: Never Housing Stability Answer Date Recorded What is [...] documented as of this encounter Visit Diagnoses Not on filedocumented in this encounter Care Teams Weed Sprayer Relationship Specialty Start Date End Date Edith Conde MD [address] [place] [address] PCP - General Family Medicine 02/12/18 documented as of this encounter
[2024-10-12 03:16] LABS: COVID-19 Test Positive (Negative); IDNOW Serial# 58CA691E
[2024-10-12 03:24] LABS: IDNOW Serial# 55D5AD1C; Influenza B2 Negative (Negative)
[2024-10-12 03:36] LABS: IDNOW Serial# 58CA691E; Strep A Nucleic Acid Invalid (Negative)
[2024-10-12 05:00] VITALS: BP 119/70; PULSE 105; RESP 20; O2SAT 94
--- NOTE | 2024-10-12 05:28 | ED.URI ---
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 Nicole Beltran HPI Narrative: 29-year-old male with a history of intellectual delay, asthma and hypertension presenting with fever and cough ongoing since yesterday. Mom reports that he has had a dry cough over the last 24 hours that she noticed while they were walking around at the store. Reports he has been having tactile fevers as well. Measured a temperature as high as 101.2?. Denies associated vomiting, chest pain, difficulty breathing, wheezing, diarrhea, lower extremity edema, known sick contacts or travel. No urinary complaints. Related Data Home Medications ?Medication ?Instructions ?Recorded ?Confirmed albuterol sulfate 90 mcg/actuation 2 puff inhalation Q4H PRN wheezing 04/30/23 12/17/23 aerosol inhaler (Ventolin HFA) lorazepam 0.5 mg tablet 0.5 mg PO BID PRN anxiety 04/30/23 12/17/23 losartan 25 mg tablet 12.5 mg PO QAM 04/30/23 12/17/23 mometasone 200 mcg/actuation HFA 1 puff inhalation BID 04/30/23 12/17/23 aerosol inhaler (Asmanex HFA) quetiapine 50 mg tablet 50 mg PO BEDTIME 04/30/23 12/17/23 zolpidem 10 mg tablet 10 mg PO DAILY PRN 04/30/23 12/17/23 sertraline 50 mg tablet 50 mg PO QAM 12/17/23 12/17/23 Previous Rx's ?Medication ?Instructions ?Recorded clotrimazole-betamethasone 1 1 appl topical BID 4 weeks #45 06/29/23 %-0.05 % topical cream grams nirmatrelvir 300 mg (150 mg See Rx Instructions PO .COMPLEX 10/12/24 x2)-ritonavir 100 mg tablet,dose #30 ea pack (Paxlovid) Allergies Allergy/AdvReac Type Severity Reaction Status Date / Time No Known Allergies Allergy Verified 10/12/24 02:53 lactose intolerance Allergy Unknown Unknown Uncoded 10/12/24 02:53 Review of Systems Review of Systems: As per HPI, full review of systems performed and negative but for the above mentioned pertinent positives and negatives. [facility] Past Medical History Medical History ROSHAN (obstructive sleep apnea) Intellectual disability Asthma Seizure Surgical History History of hernia surgery Family History Family History Father Diabetes Mother Diabetes Arthritis Depression Social History Social History Alcohol intake: never Patient Tobacco Use Status: Never used Tobacco Advance Directives: No Do you have a plan to hurt others: No Plan Physical Exam Exam: Exam: GENERAL: Ill-Appearing, appears uncomfortable. SKIN: Normal skin color for ethnicity, warm, dry, no rashes noted. HEENT: Normocephalic, atraumatic, no stridor, dry mucous membranes, dentition intact, EOMI, PERRLA. NECK: Soft, supple, full ROM, midline structures nontender, no step-offs, no deformities, no lymphadenopathy. CHEST: Heart regular tachycardia, no murmurs, symmetric chest rise and fall. PULMONARY: Clear to auscultation bilaterally, occasional bronchospastic cough, diminished at the bases, no labored breathing, no wheezes/rhales/rhonchi. ABDOMINAL: Soft, nondistended, nontender, positive bowel sounds in all quadrants. : Deferred. MUSCULOSKELETAL: Normal tone, full range of motion, no deformities, no peripheral edema. NEURO: Alert and oriented x3, CN II through XII intact, equal strength and sensation bilateral upper and lower extremities, no focal neurologic deficits. PSYCHIATRIC: Flat affect, fluid speech, good eye contact and appropriate demeanor. Vital Signs: Vital Signs: Last Vital Signs Temp 100.5 F H 10/12/24 02:51 Pulse 105 H 10/12/24 05:00 Resp 20 10/12/24 05:00 BP 119/70 10/12/24 05:00 Pulse Ox 94 10/12/24 05:00 O2 Del Method Room Air 10/12/24 05:00 BMI result Body Mass Index 41.6 Medications Administered Discontinued Medications Generic Name Dose Route Start Last Admin Trade Name Castro PRN Reason Stop Dose Admin Acetaminophen 975 mg 10/12/24 03:09 10/12/24 03:14 Acetaminophen 325 Mg Tablet PO 10/12/24 03:10 975 mg ONCE ONE Administration Medical Decision Making Medical Decision Making [facility] Narrative: Patient presents with complaints of fever. Differential diagnosis is incredibly broad but SBI, meningitis, sepsis, serious skin infection, pneumonia, or other emergent etiologies certainly considered. Less emergent diagnoses such as viral infection also considered. This patient is not toxic appearing. Patient COVID positive. We will treat with Paxlovid. Chest x-ray does not show evidence of pneumonia at this time. Discussed with mom importance of masking, using inhaler for coughing fits, treating fevers. Follow up with primary care provider. Discharged in stable condition. Differential Diagnosis Differential Diagnoses: The differential diagnosis associated with the presentation includes (As above) Admission/Observation Consideration of admission/observation: Escalation of care including admission/observation considered Lab Data [facility] Lab Attestation statement: I reviewed the patient's lab results. Labs: Lab Results 10/12/24 10/12/24 Range/Units 03:01 03:17 COVID-19 (DWAINE) Positive A (Negative) COVID-19 Clin Com See Note Influenza Type A (MOON) Negative (Negative) Influenza Type B (MOON) Negative (Negative) Influenza A & B Note See Note S. pyogenes GrpA MOON Invalid (Negative) Independent Interpretation I performed an independent interpretation of an: Plain X-Ray Interpretation: My independent interpretation of the chest x-ray reveals no consolidations, pulmonary edema, pleural effusion, pneumothorax, obvious bony abnormalities. Radiology Impression Discussion of test interpretation with radiology: I have reviewed the radiologist's reading. Independent Historian Clinical information obtained from an independent historian. History obtained from or confirmed by: Parent Prescription Management I considered prescription management with: Antiviral Chronic Conditions Patient?s care impacted by: Hypertension and Other (Intellectual delay, asthma) Discharge Plan Discharge Clinical Impression: COVID-19, Acute bronchitis with bronchospasm Patient Disposition: Home, Self-Care Instructions: COVID-19 (Coronavirus Disease 2019) (ED) Additional Instructions: Wear a mask when in public. Take Paxlovid until the course is completed. Do not stop this medication early if you start to feel better. Use Tylenol and Motrin for fever and body aches. Use your inhaler for coughing fits. You may also use [id number] cough syrup. Return to the emergency department immediately with any new or worsening symptoms including: Worsening shortness of breath, continued fevers despite medications, any new symptom that concerns you. Call 911 with any medical emergency. Use mascarilla en p?blico. [place] Paxlovid hasta completar el tratamiento. No suspenda sunshine medicamento antes de tiempo si empieza a sentirse mejor. Use Tylenol y Motrin para la fiebre y el dolor corporal. Use holm inhalador para los ataques de tos. Tambi?n puede usar jarabe para la tos de venta yanni. Regrese a urgencias inmediatamente ante cualquier s?ntoma nuevo o que empeore, incluyendo: aumento de la dificultad para respirar, fiebre persistente a pesar de la medicaci?n o cualquier s?ntoma nuevo que le preocupe. Llame al 911 ante cualquier emergencia m?dica. Prescriptions: New Paxlovid 300 mg (150 mg x 2)-100 mg tablets,dose pack See Rx Instructions .ROUTE .COMPLEX Qty: 30 0RF Rx Instructions: take TWO 150 mg tablets of nirmatrelvir with ONE 100 mg tablet of ritonavir twice daily for 5 days No Action Asmanex HFA 200 mcg/actuation HFA aerosol inhaler 1 puff inhalation BID albuterol sulfate [Ventolin HFA] 90 mcg/actuation HFA aerosol inhaler 2 puff inhalation Q4H PRN (Reason: wheezing) quetiapine 50 mg tablet 50 mg PO BEDTIME lorazepam 0.5 mg tablet 0.5 mg PO BID PRN (Reason: anxiety) zolpidem 10 mg tablet 10 mg PO DAILY PRN losartan 25 mg tablet 12.5 mg PO QAM sertraline 50 mg tablet 50 mg PO QAM clotrimazole-betamethasone 1-0.05 % cream 1 appl topical BID 28 Days Qty: 45 0RF Rx Instructions: Apply thin coat 2 times per day Print Language: Telugu
[2024-10-12 06:22] VITALS: BP 113/74; PULSE 95; RESP 20; TEMP 37.2; O2SAT 96
[2024-10-12 06:23] VITALS: BP 113/74; PULSE 95; RESP 20; TEMP 37.2; O2SAT 96
== END 2024-10-12 06:24 | disposition home or self-care (01) ==
PROVIDERS: Emergency Provider Emergency Medicine; PCP Family Medicine
DX: U07.1 COVID-19 (principal); J20.9 Acute bronchitis, unspecified
CPT/HCPCS: 71045; 87502; 87635; 87651; 99283; 99285

== ENCOUNTER 2024-11-03 14:15 | Outpatient (REF) | payer MEDICAID, SELFPAY ==
[2024-11-03 16:10] LABS: MANUAL DIFF FLAG NO
[2024-11-03 16:13] LABS: Appearance Urine Clear; Glucose Urine UA Negative (Negative); PH 6.5 (5.0-9.0); Specific Gravity - Urine 1.020 (1.005-1.025)
[2024-11-03 16:30] LABS: Hematocrit 47.2 % (42.0-52.0); Hemoglobin 15.5 g/dl (14.0-18.0); Imm Gran Abs Auto 0.02 X10*3/uL (0.00-0.03); Imm Gran Pct Auto 0.3 % (0.0-0.4); Lymphocytes Absolute Auto 1.6 X10*3/uL (1.2-4.9); Mean Corpuscular HGB Conc 32.8 g/dl (31.0-36.0); Mean Corpuscular Hemoglobin 28.0 pg (27.0-33.0); Mean Corpuscular Volume 85.2 fL (80.0-98.0); NRBC Abs Auto 0.000 X10*3/uL (0.0-0.012); NRBC Pct Auto 0.0 /100WBC (0.0-0.2); Platelet Count 229 X10*3/uL (160-400); Red Blood Count 5.54 X10*6/uL (4.60-5.80); White Blood Count 5.9 X10*3/uL (4.8-10.8)
[2024-11-03 16:46] LABS: Alanine Aminotransferase 31 U/L (0-40); Albumin Level 4.5 g/dL (3.5-5.0); Alkaline Phosphatase 69 U/L (39-117); Anion Gap 9 (12-20); Aspartate Amino Transferase 22 U/L (5-37); Blood Urea Nitrogen 7 mg/dL (9-16); Calcium 8.9 mg/dL (8.4-10.2); Carbon Dioxide 27 mmol/L (22-29); Chloride 107 mmol/L (96-108); Cholesterol 198 mg/dL (<200); Estimated Glomerular Filt Rate > 60; HDL Cholesterol 37 mg/dL (>40); Potassium 3.8 mmol/L (3.3-5.1); Sodium 139 mmol/L (135-145); Total Protein 6.9 g/dL (6.5-8.0); Triglycerides 78 mg/dL (<150)
--- OUTSIDE RECORDS SUMMARY | 2024-11-03 16:50 | XMS_ITS | Encounter Summary ---
Demographics Address [address] [place] [id number]
[2024-11-03 21:37] LABS: Reflex LDLD? No
[2024-11-04 13:56] LABS: HIV Num 1 0.07 S/CO (0.00-0.99); ~HepC Num1 0.07 S/CO (0.00-0.79); ~Hepatitis C Antibody Nonreactive (Nonreactive)
[2024-11-07 08:20] LABS: ~Hepatitis A Antibody IgG 0.34 S/CO (0.00-0.99)
== END 2024-11-03 14:16 | disposition home or self-care (01) ==
LOC: HO.HHCL 14:15
PROVIDERS: PCP Family Medicine; Visit Provider Family Medicine
DX: L80 Vitiligo (principal); R19.7 Diarrhea, unspecified; R35.0 Frequency of micturition; E55.9 Vitamin D deficiency, unspecified; Z11.3 Encounter for screening for infections with a predominantly sexual mode of transmission; Z13.220 Encounter for screening for lipoid disorders; Z01.84 Encounter for antibody response examination; Z11.4 Encounter for screening for human immunodeficiency virus [HIV]; Z11.59 Encounter for screening for other viral diseases
CPT/HCPCS: 36415; 80053; 80061; 81001; 82306; 84443; 85025; 86708; 86803; 87389

== ENCOUNTER 2024-11-25 11:28 | Emergency (ER) | payer MEDICAID, SELFPAY ==
--- NOTE | ~2024-11-25 | XR_ITS ---
EXAMINATION: XR FOOT, LEFT CLINICAL INFORMATION: 5th toe pain, swelling. COMPARISON: None available. TECHNIQUE: AP, lateral, and oblique views of the left foot. FINDINGS: The bones and soft tissues are normal. No fracture. Alignment is anatomic. Joint spaces are maintained. XR/XR foot LT min 3V IMPRESSION: 1. Normal left foot. 2. No abnormality of the fifth digit. Electronically signed by: Terrance Sandhu MD 11/25/2024 12:35 PM EDT
--- NOTE | 2024-11-25 11:31 | ED.GENADULT ---
HPI - General Adult General Chief complaint: Extremity Injury, Lower Stated complaint: L foot injury Time Seen by Provider: 11/25/24 13:50 Source: patient, family (mother), RN notes reviewed, old records reviewed and translator/interpreter Mode of arrival: wheelchair Limitations: language barrier History of Present Illness ED Provider: Clari HPI narrative: Patient is a 29y/o Martiniquais speaking male with intellectual disability presenting to the ED with mother who reports he has had complaint of pain to 5th toe on left foot x 3 days. She reports has been interfering with his sleep. She has tried applying an OTC cream with little relief. MD complaint: foot pain Onset (ago): day(s) Related Data Home Medications ?Medication ?Instructions ?Recorded ?Confirmed albuterol sulfate 90 mcg/actuation 2 puff inhalation Q4H PRN wheezing 04/30/23 12/17/23 aerosol inhaler (Ventolin HFA) lorazepam 0.5 mg tablet 0.5 mg PO BID PRN anxiety 04/30/23 12/17/23 losartan 25 mg tablet 12.5 mg PO QAM 04/30/23 12/17/23 mometasone 200 mcg/actuation HFA 1 puff inhalation BID 04/30/23 12/17/23 aerosol inhaler (Asmanex HFA) quetiapine 50 mg tablet 50 mg PO BEDTIME 04/30/23 12/17/23 zolpidem 10 mg tablet 10 mg PO DAILY PRN 04/30/23 12/17/23 sertraline 50 mg tablet 50 mg PO QAM 12/17/23 12/17/23 Previous Rx's ?Medication ?Instructions ?Recorded clotrimazole-betamethasone 1 1 appl topical BID 4 weeks #45 06/29/23 %-0.05 % topical cream grams nirmatrelvir 300 mg (150 mg See Rx Instructions PO .COMPLEX 10/12/24 x2)-ritonavir 100 mg tablet,dose #30 ea pack (Paxlovid) cephalexin 500 mg capsule 500 mg PO QID #28 caps 11/25/24 Allergies Allergy/AdvReac Type Severity Reaction Status Date / Time No Known Allergies Allergy Verified 11/25/24 11:39 lactose intolerance Allergy Unknown Unknown Uncoded 11/25/24 11:39 Review of Systems Review of Systems: as per hpi Yes all other systems are reviewed and are negative Constitutional: Constitutional: Reports as per HPI [facility] Past Medical History Medical History ROSHAN (obstructive sleep apnea) Intellectual disability Asthma Seizure Surgical History History of hernia surgery Family History Family History Father Diabetes Mother Diabetes Arthritis Depression Social History Social History Alcohol intake: never Patient Tobacco Use Status: Never used Tobacco Advance Directives: No Advance Directives Information Provided: Yes Do you have a plan to hurt others: No Plan Physical Exam ED Vital Signs: Vital Signs - 24 hr 11/25/24 11:37 Temperature 98 F Pulse Rate 90 Respiratory Rate 18 Blood Pressure 160/92 H Pulse Oximetry 98 Oxygen Delivery Method Room Air BMI result Body Mass Index 41.2 Vital signs have been reviewed and appear to be correct. Blood pressure elevated. Did not take BP medication this am. Heart rate normal. Respiratory rate normal. Temperature normal. Oxygen saturation normal. Const General: cooperative, healthy appearing and no acute distress Orientation/consciousness: oriented to person, oriented to place, oriented to time and patient oriented x3 Limitations: no limitations [facility] Head: Yes normocephalic and Yes atraumatic Ears: external ears normal General nose exam: Normal external nose present Face and sinus: Yes face symmetric Mouth: oropharynx normal and moist mucous membranes Throat: Yes uvula midline Eyes Pupils: Equal, round and reactive pupils present Neck Neck: Yes normal visual inspection and Yes supple Resp Effort & Inspection: normal respiratory effort and able to speak in complete sentences Auscultation: clear to auscultation bilaterally Cardio Rate: regular rate Rhythm: regular rhythm Heart sounds: S1 normal heart sound present and S2 normal heart sound present Skin General skin exam: elasticity normal and turgor normal Neuro General: oriented to person, oriented to place, oriented to time, patient oriented x3, moves all extremities, no focal motor deficits and CN's II-XI intact bilaterally Cranial nerves: Yes Equal, round and reactive pupils present Cognition (Neuro): normal cognition Extrem General: Yes full ROM, Yes no pedal edema and Yes no calf tenderness Left lower extremity: foot (2mm pustule over 5th MTP dorsally with mild erythema) Details: tenderness Location: of the dorsal foot Location: laterally, toes with normal ROM, no edema and vascular exam Details: dorsalis pedis pulse present, posterior tibial pulse present and normal capillary refill Psych Mental Status: mental status grossly normal Affect: normal affect Thought process: Normal thought process present Course Course Course Narrative: This is a rapid medical exam performed by Nancy Montague NP: Additional HPI, ROS, PE not included below will be deferred to primary provider. Patient is a 29y/o Martiniquais speaking male with intellectual disability presenting to the ED with mother who reports he has had complaint of pain to 5th toe on left foot x 3 days. She reports has been interfering with his sleep. Small pusutle over MTP joint. Per mother he did not take BP medication today. Plan: xray, labs Medical Decision Making Medical Decision Making [facility] Narrative: Patient is a 29y/o Martiniquais speaking male with intellectual disability presenting to the ED with mother who reports he has had complaint of pain to 5th toe on left foot x 3 days. On exam patient is awake, A+Ox3, VS WNL, afebrile, normal neurological exam without focal deficits, physical exam findings as above. Given reported symptoms and physical exam findings, initial differential includes but is not limited to abscess, cellulitis, fracture. Low suspicion for osteomyelitis. Labs notable for no leukocytosis, mildly elevated ESR and CRP X-ray left foot notable for no acute fracture. My interpretation is in agreement with the radiologist's interpretation. Will treat patient with Keflex, advised soaking in warm salt water several times daily. Follow up with primary care provider. Return precautions discussed. Mother verbalized understanding of and agreement with plan. In-person diplomatic interpreter was utilized for all interactions, assessments, and discussions. Differential Diagnosis Differential Diagnoses: The differential diagnosis associated with the presentation includes As per [facility] Admission/Observation Consideration of admission/observation: Escalation of care including admission/observation considered Patient would have been admitted to the hospital and transferred to appropriate facility had their clinical presentation warranted hospital admission. Lab Data [facility] Lab Attestation statement: I reviewed the patient's lab results. as per [facility] 11/25/24 12:06 11/25/24 12:06 Labs: Lab Results 11/25/24 Range/Units 12:06 WBC 9.9 (4.8-10.8) X10*3/uL RBC 5.95 H (4.60-5.80) X10*6/uL Hgb 16.9 (14.0-18.0) g/dl Hct 51.1 (42.0-52.0) % MCV 85.9 (80.0-98.0) fL MCH 28.4 (27.0-33.0) pg MCHC 33.1 (31.0-36.0) g/dl RDW 13.2 (11.0-16.0) % Plt Count 216 (160-400) X10*3/uL MPV 10.7 (9.4-12.4) fL Immature Gran % (Auto) 0.3 (0.0-0.4) % Neut % (Auto) 74.5 H (45-73) % Lymph % (Auto) 18.7 L (20-40) % Powell % (Auto) 5.5 (2-11) % Eos % (Auto) 0.4 (0-4) % Baso % (Auto) 0.6 (0-2) % Lymph # (Auto) 1.9 (1.2-4.9) X10*3/uL Powell # (Auto) 0.5 (0.1-1.2) X10*3/uL Eos # (Auto) 0.0 (0.0-0.4) X10*3/uL Baso # (Auto) 0.1 (0.0-0.2) X10*3/uL Abs Immat Gran (auto) 0.03 (0.00-0.03) X10*3/uL Absolute Neuts (auto) 7.4 (2.0-8.3) x10*3/uL Absolute Nucleated RBC 0.000 (0.0-0.012) X10*3/uL Nucleated RBC % (auto) 0.0 (0.0-0.2) /100WBC ESR 7 (0-15) MM/HR Sodium 139 (135-145) mmol/L Potassium 4.3 (3.3-5.1) mmol/L Chloride 106 (96-108) mmol/L Carbon Dioxide 25 (22-29) mmol/L Anion Gap 12 (12-20) BUN 9 (9-16) mg/dL Creatinine 0.80 (0.5-1.4) mg/dL Estim Creat Clear Calc 149.7 Estimated GFR > 60 Random Glucose 97 (60-115) mg/dL Calcium 9.3 (8.4-10.2) mg/dL Total Bilirubin 0.5 (0.0-1.0) mg/dL AST 18 (5-37) U/L ALT 27 (0-40) U/L Alkaline Phosphatase 72 (39-117) U/L C-Reactive Protein 3.74 H (< or = 0.50) mg/dL Total Protein 7.3 (6.5-8.0) g/dL Albumin 4.7 (3.5-5.0) g/dL Independent Interpretation I performed an independent interpretation of an: Plain X-Ray Interpretation: No evidence of acute fracture or osteomyelitis to left foot Radiology Impression Discussion of test interpretation with radiology: I have reviewed the radiologist's reading. Radiologist Impression: XR/XR foot LT min 3V IMPRESSION: 1. Normal left foot. 2. No abnormality of the fifth digit. Independent Historian Clinical information obtained from an independent historian. History obtained from or confirmed by: Parent External Record Review External record reviewed: Inpatient record, Office record and Outpatient record Prescription Management I considered prescription management with: Antibiotic Discharge Plan Discharge Clinical Impression: Abscess of left foot Patient Disposition: Home, Self-Care Instructions: Abscess (ED), Abscess Follow-up (ED) Additional Instructions: You were evaluated in the ER for an abscess. Please keep the area surrounding the abscess clean and dry. You were given a prescription for antibiotics, please take the antibiotics as directed for the full course of the medication. You should perform a skin check of the area daily. If the abscess progresses you may have to have the abscess incised and drained. You can use Tylenol or ibuprofen per package directions as needed for pain. If necessary, you can alternate these medications so that you take one medication every 3 hours. For instance, at noon take ibuprofen, then at 3:00 p.m. take Tylenol, then at 6:00 p.m. take ibuprofen. Please schedule an appointment with your primary care physician as soon as possible for follow-up. Return to the emergency department if you experience fevers greater than 100.4? F, increased in area of redness or swelling, increasing amount of discharge from the area, increased tenderness around the area, or any other concerning symptoms. Prescriptions: New cephalexin 500 mg capsule 500 mg PO QID Qty: 28 0RF No Action Paxlovid 300 mg (150 mg x 2)-100 mg tablets,dose pack See Rx Instructions .ROUTE .COMPLEX Qty: 30 0RF Rx Instructions: take TWO 150 mg tablets of nirmatrelvir with ONE 100 mg tablet of ritonavir twice daily for 5 days Asmanex HFA 200 mcg/actuation HFA aerosol inhaler 1 puff inhalation BID albuterol sulfate [Ventolin HFA] 90 mcg/actuation HFA aerosol inhaler 2 puff inhalation Q4H PRN (Reason: wheezing) quetiapine 50 mg tablet 50 mg PO BEDTIME lorazepam 0.5 mg tablet 0.5 mg PO BID PRN (Reason: anxiety) zolpidem 10 mg tablet 10 mg PO DAILY PRN losartan 25 mg tablet 12.5 mg PO QAM sertraline 50 mg tablet 50 mg PO QAM clotrimazole-betamethasone 1-0.05 % cream 1 appl topical BID 28 Days Qty: 45 0RF Rx Instructions: Apply thin coat 2 times per day Print Language: Martiniquais
[2024-11-25 11:37] VITALS: BP 160/92; PULSE 90; RESP 18; TEMP 36.6; O2SAT 98; BMI 41.2
[2024-11-25 12:13] LABS: MANUAL DIFF FLAG NO
[2024-11-25 12:17] LABS: Hematocrit 51.1 % (42.0-52.0); Hemoglobin 16.9 g/dl (14.0-18.0); Imm Gran Abs Auto 0.03 X10*3/uL (0.00-0.03); Imm Gran Pct Auto 0.3 % (0.0-0.4); Lymphocytes Absolute Auto 1.9 X10*3/uL (1.2-4.9); Mean Corpuscular HGB Conc 33.1 g/dl (31.0-36.0); Mean Corpuscular Hemoglobin 28.4 pg (27.0-33.0); Mean Corpuscular Volume 85.9 fL (80.0-98.0); NRBC Abs Auto 0.000 X10*3/uL (0.0-0.012); NRBC Pct Auto 0.0 /100WBC (0.0-0.2); Platelet Count 216 X10*3/uL (160-400); Red Blood Count 5.95 X10*6/uL (4.60-5.80); White Blood Count 9.9 X10*3/uL (4.8-10.8)
[2024-11-25 12:38] LABS: Alanine Aminotransferase 27 U/L (0-40); Albumin Level 4.7 g/dL (3.5-5.0); Alkaline Phosphatase 72 U/L (39-117); Anion Gap 12 (12-20); Aspartate Amino Transferase 18 U/L (5-37); Blood Urea Nitrogen 9 mg/dL (9-16); Calcium 9.3 mg/dL (8.4-10.2); Carbon Dioxide 25 mmol/L (22-29); Chloride 106 mmol/L (96-108); Creatinine Clr Calc Pharmacy 149.7; Estimated Glomerular Filt Rate > 60; Potassium 4.3 mmol/L (3.3-5.1); Sodium 139 mmol/L (135-145); Total Protein 7.3 g/dL (6.5-8.0)
[2024-11-25 15:57] VITALS: BP 160/92; PULSE 90; RESP 18; TEMP 36.6; O2SAT 98
== END 2024-11-25 15:58 | disposition home or self-care (01) ==
PROVIDERS: Registered Nurse Emergency; Emergency Provider Emergency Medicine; PCP Family Medicine
DX: L02.612 Cutaneous abscess of left foot (principal); M79.675 Pain in left toe(s)
CPT/HCPCS: 36415; 73630; 80053; 85025; 85652; 86140; 99282; 99283

== ENCOUNTER → 2024-11-25 11:38 | Outpatient (BNV) | payer MEDICAID, SELFPAY | PROVIDERS: PCP Family Medicine; Visit Provider Radiology Diagnostic Radiology | DX: M79.675 Pain in left toe(s) (principal) | CPT/HCPCS: 73630 ==

== ENCOUNTER 2024-11-28 13:19 | Inpatient (IN) | payer MEDICAID, SELFPAY ==
--- NOTE | ~2024-11-28 | XR_ITS ---
EXAMINATION: XR FOOT 1-2 VIEWS LEFT HISTORY: left foot redness swelling. osteo? COMPARISON: Comparison is made with the prior examination dated 11/25/2024. FINDINGS: Three views of the left foot are submitted. Osseous mineralization is normal. There is no fracture or dislocation. The joint spaces are preserved. The soft tissues are unremarkable. XR/XR foot LT 2V IMPRESSION: Unremarkable examination of the left foot. Electronically signed by: Johnie Pate MD 11/28/2024 01:48 PM EDT
--- NOTE | ~2024-11-28 | CT_ITS ---
EXAMINATION: CT ABDOMEN AND PELVIS WITHOUT CONTRAST CLINICAL INFORMATION: Abdominal pain, with vague complaints. Patient with developmental delay. Patient with TAYLOR. COMPARISON: 08/06/2018. TECHNIQUE: Multidetector volumetric imaging was performed from the superior aspect of the liver through the pubic symphysis. Sagittal and coronal reformatted images were obtained on the technologist's workstation. This CT examination was performed using dose optimization techniques as appropriate, variously including the following: *Automated exposure control *Adjustment of mA and/or kV according to patient size (this includes techniques or standardized protocols for targeted exams where dose is matched to indication/reason for exam; i.e. extremities or head) *Use of iterative reconstruction technique FINDINGS: LUNG BASES: The visualized lung bases are unremarkable. LIVER, GALLBLADDER, AND BILIARY TREE: The unenhanced liver is normal in size, shape, and attenuation. No focal hepatic lesion or biliary ductal dilatation is present. The gallbladder is unremarkable with no evidence of radiopaque gallstones, gallbladder wall thickening, or obvious pericholecystic inflammatory changes. PANCREAS: Unremarkable. SPLEEN: Unremarkable. ADRENAL GLANDS: Unremarkable. KIDNEYS AND URETERS: The unenhanced kidneys are normal in size, shape, and attenuation. No hydronephrosis, hydroureter, or calculi seen. Minimal perinephric stranding. BLADDER: Normal. GASTROINTESTINAL TRACT: Normal appendix visualized. The stomach, duodenum, and small bowel are normal in course, caliber, and appearance. No wall thickening or inflammation. The colon is normal in course and caliber without wall thickening or inflammation. There is no rectal abnormality. ABDOMINAL WALL: There is a tiny fat-containing umbilical hernia. There is evidence of prior left inguinal hernia repair. No additional abnormalities. LYMPH NODES: No abnormal lymphadenopathy is present. VASCULAR: Unremarkable. Retroaortic left renal vein. PELVIC VISCERA: Unremarkable. OSSEOUS STRUCTURES: No suspicious lytic or blastic bone lesion. CT/CT abdomen pelvis wo IV con IMPRESSION: 1. No acute findings in the abdomen or pelvis. Electronically signed by: Terrance Sandhu MD 12/01/2024 02:30 PM EDT
[2024-11-28 13:22] VITALS: BP 169/94; PULSE 102; RESP 16; TEMP 36.3; O2SAT 94
--- NOTE | 2024-11-28 13:29 | ED_ITS ---
HPI - General Adult General Chief complaint: General Medical Stated complaint: seen 11/24 for same, not getting better Time Seen by Provider: 11/28/24 15:05 Source: patient Mode of arrival: ambulatory Limitations: other (Poor historian) History of Present Illness ED Provider: DENG Ramirez HPI narrative: 29-year-old male presents with left foot discomfort, redness, swelling ongoing for the past week or so. Patient currently being treated with Keflex for foot infection on the left, however, despite all of this symptoms seem to be worsening. Denies trauma to foot, fevers, chills, numbness, tingling, chest pain, shortness of breath. Related Data Home Medications ?Medication ?Instructions ?Recorded ?Confirmed albuterol sulfate 90 mcg/actuation 2 puff inhalation Q 4H PRN wheezing 04/30/23 11/28/24 aerosol inhaler (Ventolin HFA) lorazepam 0.5 mg tablet 0.5 mg PO BEDTIME PRN anxiet y 04/30/23 11/28/24 losartan 25 mg tablet 25 mg PO QAM 04/30/23 mometasone 200 mcg/actuation HFA 1 puff inhalation BID 04/30/23 11/28/24 aerosol inhaler (Asmanex HFA) quetiapine 50 mg tablet 50 mg PO BEDTIME 04/30/23 zolpidem 10 mg tablet 10 mg PO DAILY PRN Insomnia 04/30/23 11/28/24 sertraline 50 mg tablet 50 mg PO QAM 12/17/23 cetirizine 10 mg tablet 10 mg PO DAILY PRN Allergic 11/28/24 11/28/24 Symptoms Previous Rx's ?Medication ?Instructions ?Recorded cephalexin 500 mg capsule 500 mg PO QID #28 caps 11/25 Allergies Allergy/AdvReac Type Severity Reaction Status Date / Time No Known Allergies Allergy Verified 11/28/24 13:27 lactose intolerance Allergy Unknown Unknown Uncoded 11/25/24 11:39 Review of Systems 2 Review of Systems: Yes all other systems are reviewed and are negative [facility] Past Medical History Attestation statement: The following information was validated with the patient. Source: old records reviewed and nursing notes reviewed Medical History ROSHAN (obstructive sleep apnea) Intellectual disability Asthma Seizure Surgical History History of hernia surgery Family History Family History Father Diabetes Mother Diabetes Arthritis Depression Social History Social History Alcohol intake: never Patient Tobacco Use Status: Never used Tobacco Smoked in Last 30 Days: No Use of substances other than those prescribed or required for medical reasons: No Currently Displaying Signs/Symptoms of Drug Intoxication Withdrawal: No Advance Directives: No Advance Directives Information Provided: Yes Nutrition Risks: No Nutritional Risk Physical Exam ED Exam Exam: Appearance: Alert.? Oriented X3.? No acute distress.? Head: Normocephalic, atraumatic, no step-offs or deformities Eyes: Pupils equal, round and reactive to light.? Neck: Normal inspection.? Neck supple.? CVS: Normal heart rate and rhythm.? Pulses normal.? Respiratory: No respiratory distress.? Breath sounds normal.? Abdomen: Soft and nontender.? Skin: Skin warm and dry.? Normal skin color.? Normal skin turgor.?+ erythema, warmth and tenderness overlying the L 5th MTP dorsally blister noted to the lateral aspect of L 5th toe. Extremities: No lower extremity edema.? No calf ttp. 5/5 strength to bilateral upper and lower extremities Neuro: Oriented X 3.? No motor deficit.? No sensory deficit. CN 2-12 intact Vital Signs: Vital Signs - 24 hr 11/28/24 13:22 11/28/24 15:05 Temperature 97.3 F 98.1 F Pulse Rate 102 H 97 Respiratory Rate 16 18 Blood Pressure 169/94 H 135/93 H Pulse Oximetry 94 96 Oxygen Delivery Method Room Air Room Air BMI result Body Mass Index 42.3 vss Course Course Course Narrative: RME: 29-year-old male presents to ED for re-evaluation of left foot. Patient was seen for left foot erythema and now mother states redness and lump is getting worse. She states patient has had subjective fever last night with some chills. We will do repeat labs and x-ray. Uric Acid will be added. Reevaluation(s) Reevaluation #1: X-ray of foot on 11/28/2024 unremarkable examination. CBC now with leukocytosis neutrophil predominance. Elevated ESR and CRP. Chemistry with no acute electrolyte abnormalities needing intervention. Time: 15:10 Reevaluation #2: Plan hospital admission. I started vanco and Zosyn. [place] text to hospitalist quarterback for admission Time: 15:34 Medications Administered Generic Name Dose Route Start Last Admin Trade Name Freq PRN Reason Stop Dose Admin Acetaminophen 650 mg 11/28/24 16:55 11/29/24 15:17 Acetaminophen 325 Mg Tablet PO 650 mg Q6H PRN Administration Pain, Mild 1-3,fever,headache Ceftriaxone Sodium 1 gm 11/28/24 17:00 11/29/24 16:54 Ceftriaxone Sodium 1 Gm Vial IVPUSH 1 gm Q24H ALEXEY Administration Fluticasone Propionate 1 puff 11/28/24 20:00 11/29/24 20:12 Fluticasone Propionate 250 Mcg Blst.W.Dev INHALE 1 puff RBID ALEXEY Administration Vancomycin HCl 750 mg/ Sodium 265 mls @ 265 mls/hr 11/29/24 18:00 11/30/24 07:39 Chloride IV Infused Q12H ALEXEY Infusion Losartan Potassium 25 mg 11/29/24 09:00 11/29/24 08:18 Losartan Potassium 25 Mg Tablet PO 25 mg DAILY ALEXEY Administration Protocol Prochlorperazine Edisylate 5 mg 11/29/24 01:48 11/29/24 02:01 Prochlorperazine Edisylate 10 Mg/2 Ml Vial IVPUSH 5 mg Q4H PRN Administration Nausea and Vomiting Quetiapine Fumarate 50 mg 11/28/24 21:00 11/29/24 23:36 Quetiapine Fumarate 50 Mg Tablet PO Not Given BEDTIME ALEXEY Sertraline HCl 50 mg 11/29/24 09:00 11/29/24 08:18 Sertraline Hcl 50 Mg Tablet PO 50 mg DAILY ALEXEY Administration Sodium Chloride 3 ml 11/29/24 00:00 11/30/24 06:15 0.9 % Sodium Chloride Flush 3 Ml Syringe IVFLUSH 3 ml QSHIFT ALEXEY Administration Discontinued Medications Generic Name Dose Route Start Last Admin Trade Name Freq PRN Reason Stop Dose Admin Vancomycin HCl 2,000 mg in 500 mls @ 250 mls/hr 11/28/24 15:19 11/28/24 19:33 Vancomycin/Ns IV 11/28/24 17:18 Infused ONCE ONE Infusion Piperacillin Sod/Tazobactam 50 mls @ 100 mls/hr 11/28/24 15:19 11/28/24 16:19 Sod 3.375 gm/ Sodium Chloride IV 11/28/24 15:48 Infused ONCE ONE Infusion Vancomycin HCl 1,250 mg/ 250 mls @ 166.667 mls/hr 11/29/24 06:00 11/29/24 08:27 Sodium Chloride IV Infused Q12H ALEXEY Infusion Medical Decision Making Medical Decision Making [facility] Narrative: This is a 29-year-old male presenting with left foot pain, swelling and worsening of infection per patient. Per chart review patient was seen here on 11/25/2024 where he presented with pain to 5th left toe x3 days. He left with a diagnosis of abscess and was prescribed Keflex 500 mg q.i.d. x7 days PE w/ erythema, warmth and tenderness overlying the L 5th MTP dorsally blister noted to the lateral aspect of L 5th toe. . 2+ dorsalis pedis, anterior tibialis posterior tibialis pulses equal bilateral. Normal distal sensation. Cap refill less than 2 seconds convinced bilateral lower extremities. History and physical exam concerning for cellulitis not responding to Keflex. No signs of septic joint, acute threat to [place], arterial or venous occlusion Plan labs, imaging likely hospital admission for IV antibiotics Differential Diagnosis Differential Diagnoses: The differential diagnosis associated with the presentation includes (History and physical exam concerning for cellulitis not responding to Keflex. No signs of septic joint, acute threat to [place], arterial or venous occlusion) Admission/Observation Consideration of admission/observation: Escalation of care including admission/observation considered Lab Data [facility] Lab Attestation statement: I reviewed the patient's lab results. 11/29/24 06:13 11/30/24 06:39 Labs: Lab Results 11/28/24 11/28/24 Range/Units 13:38 15:28 WBC 11.3 H (4.8-10.8) X10*3/uL RBC 5.73 (4.60-5.80) X10*6/uL Hgb 16.2 (14.0-18.0) g/dl Hct 48.6 (42.0-52.0) % MCV 84.8 (80.0-98.0) fL MCH 28.3 (27.0-33.0) pg MCHC 33.3 (31.0-36.0) g/dl RDW 13.2 (11.0-16.0) % Plt Count 223 (160-400) X10*3/uL MPV 10.3 (9.4-12.4) fL Immature Gran % (Auto) 0.4 (0.0-0.4) % Neut % (Auto) 76.3 H (45-73) % Lymph % (Auto) 16.6 L (20-40) % [place] % (Auto) 5.7 (2-11) % Eos % (Auto) 0.4 (0-4) % Baso % (Auto) 0.6 (0-2) % Lymph # (Auto) 1.9 (1.2-4.9) X10*3/uL [place] # (Auto) 0.6 (0.1-1.2) X10*3/uL Eos # (Auto) 0.0 (0.0-0.4) X10*3/uL Baso # (Auto) 0.1 (0.0-0.2) X10*3/uL Abs Immat Gran (auto) 0.04 H (0.00-0.03) X10*3/uL Absolute Neuts (auto) 8.6 H (2.0-8.3) x10*3/uL Absolute Nucleated RBC 0.000 (0.0-0.012) X10*3/uL Nucleated RBC % (auto) 0.0 (0.0-0.2) /100WBC ESR 32 H (0-15) MM/HR Sodium 139 (135-145) mmol/L Potassium 4.0 (3.3-5.1) mmol/L Chloride 106 (96-108) mmol/L Carbon Dioxide 25 (22-29) mmol/L Anion Gap 12 (12-20) BUN 8 L (9-16) mg/dL Creatinine 0.90 (0.5-1.4) mg/dL Estim Creat Clear Calc 16.7 Estimated GFR > 60 Random Glucose 107 (60-115) mg/dL Lactic Acid 1.2 (0.5-2.0) mmol/L Uric Acid 6.3 (3.4-7.0) mg/dL Calcium 9.5 (8.4-10.2) mg/dL Total Bilirubin 0.5 (0.0-1.0) mg/dL AST 17 (5-37) U/L ALT 23 (0-40) U/L Alkaline Phosphatase 68 (39-117) U/L C-Reactive Protein 10.97 H (< or = 0.50) mg/dL Total Protein 7.4 (6.5-8.0) g/dL Albumin 4.7 (3.5-5.0) g/dL Independent Interpretation I performed an independent interpretation of an: Plain X-Ray (XR/XR foot LT 2V IMPRESSION: Unremarkable examination of the left foot. ) Radiology Impression Discussion of test interpretation with radiology: I have reviewed the radiologist's reading. External Record Review External record reviewed: Inpatient record, Office record, Outpatient record, Prior outpatient labs, Prior outpatient radiology, Primary care record and Outside ED record Prescription Management I considered prescription management with: Antibiotic Chronic Conditions Patient?s care impacted by: Other (Intellectual disability) Social Determinants Patient?s care significantly limited by Social Determinants of Health including: Inadequate housing, Low income, Alcoholism and drug addiction in family, Problems related to primary support group, Unemployment, Problems related to employment and Other Social Determinant of Health Critical Care Time Critical Care Time Critical Care Time: Yes Total Critical Care Time: 35 Attestation: I attest to this time spent taking care of the patient, obtaining history, physical, reviewing labs, imaging, treatment of patients condition +/- specialist/hospitalist consult +/- procedure Discharge Plan Discharge Clinical Impression: Cellulitis, Foot pain, left Patient Disposition: Admitted As Inpatient Interventions: Admission Worksheet (ED) Last Done: 11/28/24 21:37 Discharge Date/Time: 11/29/24 01:39
[2024-11-28 13:43] LABS: MANUAL DIFF FLAG NO
[2024-11-28 13:47] LABS: Hematocrit 48.6 % (42.0-52.0); Hemoglobin 16.2 g/dl (14.0-18.0); Imm Gran Abs Auto 0.04 X10*3/uL (0.00-0.03); Imm Gran Pct Auto 0.4 % (0.0-0.4); Lymphocytes Absolute Auto 1.9 X10*3/uL (1.2-4.9); Mean Corpuscular HGB Conc 33.3 g/dl (31.0-36.0); Mean Corpuscular Hemoglobin 28.3 pg (27.0-33.0); Mean Corpuscular Volume 84.8 fL (80.0-98.0); NRBC Abs Auto 0.000 X10*3/uL (0.0-0.012); NRBC Pct Auto 0.0 /100WBC (0.0-0.2); Platelet Count 223 X10*3/uL (160-400); Red Blood Count 5.73 X10*6/uL (4.60-5.80); White Blood Count 11.3 X10*3/uL (4.8-10.8)
[2024-11-28 14:01] LABS: Alanine Aminotransferase 23 U/L (0-40); Albumin Level 4.7 g/dL (3.5-5.0); Alkaline Phosphatase 68 U/L (39-117); Anion Gap 12 (12-20); Aspartate Amino Transferase 17 U/L (5-37); Blood Urea Nitrogen 8 mg/dL (9-16); Calcium 9.5 mg/dL (8.4-10.2); Carbon Dioxide 25 mmol/L (22-29); Chloride 106 mmol/L (96-108); Creatinine Clr Calc Pharmacy 16.7; Estimated Glomerular Filt Rate > 60; Potassium 4.0 mmol/L (3.3-5.1); Sodium 139 mmol/L (135-145); Total Protein 7.4 g/dL (6.5-8.0); Uric Acid 6.3 mg/dL (3.4-7.0)
[2024-11-28 15:05] VITALS: BP 135/93; PULSE 97; RESP 18; TEMP 36.7; O2SAT 96
[2024-11-28 15:29] VITALS: BMI 42.3
--- NOTE | 2024-11-28 16:15 | PC.NURSE ---
pt is alert but family is reporting that he has cognitive and mental disabilities and not really able to answer questions appropriately, skin appropriate for ethnicity, pt is coming in with left foot redness/swelling and pain , pt was seen on 11/25 for a infected hair follicle and put on PO abx but just getting worse
[2024-11-28] MEDS: vancomycin/NS 2,000 MG/500 ML PLAST..BAG 250 MG IV (16:23)
--- NOTE | 2024-11-28 16:28 | PHA.MEDREC ---
Pharmacy Consult ? Medication Reconciliation Pharmacy has completed the medication reconciliation. Utilized direct marketing analyst and spoke with patients mother. Mom was able to confirm all medications. OF NOTE: patient is on full tablet of losartan 25 mg now, and mom stated patient is on ativan 0.5 mg at bedtime daily there are no PDMP claims to support this. Patient started cephalexin sunday.
--- NOTE | 2024-11-28 16:51 | MHC.EDTECH ---
cultures are done....ordered x2
--- NOTE | 2024-11-28 17:01 | PM.IMHP ---
History of Present Illness Date of Service: 11/28/24 Attending physician on admission: Rowan Waters Chief Complaint: left foot infection This is a 29-year-old [place]an-speaking male with a history of intellectual disability/autism who was brought to the emergency department by his mother for worsening left foot pain. History was obtained from the patient's mother at the bedside. He was initially seen in the emergency department on November 25 for pain especially on his left 5th toe. At that time he was discharged with a course of Keflex and advised soaking in warm water several times daily. He has been taking his medication as prescribed but the redness, swelling, pain has been increasing. There is also an area on the left 5th toe she appears to be an abscess. Lab work today revealed leukocytosis of 11.3, ESR 32, CRP 10.97. Lactic acid 1.2. Foot x-ray showed no evidence of bony abnormality quality. Patient was treated with a dose of Zosyn and vancomycin. Review of Systems Review of Systems: Yes all other systems are reviewed and are negative Constitutional: Constitutional: Denies chills and Denies fever(s) Cardiovascular: Cardiovascular: Denies chest pain and Denies palpitations Gastrointestinal: Gastrointestinal: Denies abdominal pain, Denies nausea and Denies vomiting Endocrine: Endocrine: Denies palpitations [facility] Medical History ROSHAN (obstructive sleep apnea) Intellectual disability Asthma Seizure Family History Father Diabetes Mother Diabetes Arthritis Depression Surgical History History of hernia surgery Social History Alcohol intake: never Patient Tobacco Use Status: Never used Tobacco Smoked in Last 30 Days: No Use of substances other than those prescribed or required for medical reasons: No Advance Directives: No Advance Directives Information Provided: Yes Meds Allergies Allergy/AdvReac Type Severity Reaction Status Date / Time No Known Allergies Allergy Verified 11/28/24 13:27 lactose intolerance Allergy Unknown Unknown Uncoded 11/25/24 11:39 Active Medications: Current Medications Acetaminophen (Acetaminophen 325 Mg Tablet) 650 mg PO Q6H PRN PRN Reason: Pain, Mild 1-3,fever,headache Calcium Carbonate (Calcium Carbonate 750 Mg Tab.Chew) 750 mg PO Q4H PRN PRN Reason: Heartburn Ceftriaxone Sodium (Ceftriaxone Sodium 1 Gm Vial) 1 gm IVPUSH Q24H ALEXEY Vancomycin HCl (Vancomycin/Ns) 2,000 mg in 500 mls @ 250 mls/hr IV ONCE ONE Stop: 11/28/24 17:18 Last Admin: 11/28/24 16:23 Dose: 250 mls/hr Magnesium Hydroxide (Milk Of Magnesia 30 Ml Oral.Susp) 30 ml PO DAILY PRN PRN Reason: Constipation Melatonin (Melatonin 3 Mg Tablet) 6 mg PO BEDTIME PRN PRN Reason: Insomnia Pharmacy Consult (Consult Rx Vancomycin Dosing) 1 each MISCELLANE DAILY PRN PRN Reason: Consult order Sodium Chloride (0.9 % Sodium Chloride Flush 3 Ml Syringe) 3 ml IVFLUSH QSHIFT [facility] Home Medications ?Medication ?Instructions ?Recorded ?Confirmed ?Last Taken ?Type albuterol sulfate 90 mcg/actuation 2 puff inhalation Q4H PRN wheezing 04/30/23 11/28/24 Unknown History aerosol inhaler (Ventolin HFA) lorazepam 0.5 mg tablet 0.5 mg PO BEDTIME PRN anxiety 04/30/23 11/28/24 Unknown History losartan 25 mg tablet 25 mg PO QAM 04/30/23 11/28/24 Unknown History mometasone 200 mcg/actuation HFA 1 puff inhalation BID 04/30/23 11/28/24 Unknown History aerosol inhaler (Asmanex HFA) quetiapine 50 mg tablet 50 mg PO BEDTIME 04/30/23 11/28/24 Unknown History zolpidem 10 mg tablet 10 mg PO DAILY PRN Insomnia 04/30/23 11/28/24 Unknown History sertraline 50 mg tablet 50 mg PO QAM 12/17/23 11/28/24 Unknown History cetirizine 10 mg tablet 10 mg PO DAILY PRN Allergic 11/28/24 11/28/24 Unknown History Symptoms Physical Exam Vital Signs and Narrative: Vital Signs: Last Vital Signs Temp 98.1 F 11/28/24 15:05 Pulse 97 11/28/24 15:05 Resp 18 11/28/24 15:05 BP 135/93 H 11/28/24 15:05 Pulse Ox 96 11/28/24 15:05 O2 Del Method Room Air 11/28/24 15:05 BMI result Body Mass Index 42.3 Const: General: cooperative, comfortable, alert and awake Nutritional Appearance: obese Resp: Effort & Inspection: normal respiratory effort, able to speak in complete sentences, no respiratory distress and no use of accessory muscles Cardio: Rate: regular rate GI: Inspection: No distended Palpation (GI): Soft to palpation and nontender Neuro: General: No moves all extremities and No CN's II-XI intact bilaterally Results Labs 11/28/24 13:38 11/28/24 13:38 Labs: Laboratory Results - last 24 hr 11/28/24 11/28/24 13:38 15:28 MCV 84.8 MCH 28.3 MCHC 33.3 RDW 13.2 Plt Count 223 MPV 10.3 Immature Gran % (Auto) 0.4 Neut % (Auto) 76.3 H Lymph % (Auto) 16.6 L [place] % (Auto) 5.7 Eos % (Auto) 0.4 Baso % (Auto) 0.6 Lymph # (Auto) 1.9 [place] # (Auto) 0.6 Eos # (Auto) 0.0 Baso # (Auto) 0.1 Abs Immat Gran (auto) 0.04 H Absolute Neuts (auto) 8.6 H Absolute Nucleated RBC 0.000 Nucleated RBC % (auto) 0.0 ESR 32 H Anion Gap 12 Estim Creat Clear Calc 16.7 Estimated GFR > 60 Random Glucose 107 Lactic Acid 1.2 Uric Acid 6.3 Calcium 9.5 Total Bilirubin 0.5 AST 17 ALT 23 Alkaline Phosphatase 68 C-Reactive Protein 10.97 H Total Protein 7.4 Albumin 4.7 Imaging Radiologist's Impressions: Impressions Foot X-Ray 11/28/24 13:35 IMPRESSION: Unremarkable examination of the left foot. Electronically signed by: Johnie Pate MD 11/28/2024 01:48 PM EDT Assessment and Plan (1) Cellulitis: Status: Acute Plan This is a 29 year old male with history of intellectual delay/autism, hypertension, lactose intolerance who presents to the emergency room with worsening left foot pain and redness after being diagnosed with cellulitis on November 25. Left foot cellulitis with abscess failed outpatient therapy with po keflex inflammatory markers not concerning for osteo IV ceftriaxone, Vancomycin general surgery consult follow blood culture results Mood continue baseline meds HTN continue losartan ROSHAN multiple positive sleep studies unclear if pt has received CPAP machine will order while inpatient asthma, unspecified no acute exacerbation continue baseline inhalers Morbid obesity BMI 42.3 weight loss would be helpful for ROSHAN and asthma dvt ppx - early ambulation, mechanical devices code status - full code Quality Stroke Does the patient have a stroke diagnosis?: No VTE Prior VTE?: No VTE Risk Level:: Medical - low VTE Device Contraindication: Treatment Not Indicated VTE Drug Contraindication: Treatment Not Indicated
--- OUTSIDE RECORDS SUMMARY | 2024-11-28 17:08 | XMS_ITS | Encounter Summary ---
Author Organization [employer] Address [address] [place] [address] Care Team Providers Care Brazer Production Line Name Role Phone Edith Conde MD Primary Care Provider [phone] Encounter Details Date Type Department Care Team ([facility] Contact Info) Description 11/28/2024 Orders Only GENERIC EXTERNAL DATA DEPARTMENT Provider, Generic External Data Social History Tobacco Use Types Packs/Day Years [...] on file documented as of this encounter Procedures Procedure Name Priority Date/Time Associated Diagnosis Comments LACTIC ACID Routine 11/28/2024 3:28 PM EDT CBC WITH AUTO DIFFERENTIAL Routine 11/28/2024 1:38 PM EDT SED RATE BY MODIFIED WESTERGREN Routine 11/28/2024 1:38 PM EDT C-REACTIVE PROTEIN Routine 11/28/2024 1: 38 PM EDT URIC ACID Routine 11/28/2024 1:38 PM EDT COMPREHENSIVE METABOLIC PANEL Routine 11/28/2024 1:38 PM EDT XR FOOT 1-2 VIEWS LEFT Routine 1:35 PM EDT documented in this encounter Results * Lactic Acid (11/28/2024 3:28 PM EDT) Lactic Acid 1.2 0.5 - 2.0 mmol/L [facility] 11/28/2024 3:28 PM EDT 11/28/2024 3:35 PM EDT us Generic External Data Provider LAB BLOOD ORDERAB LES Final Result [facility] [address] [place] [phone] * (ABNORMAL) Sed Rate by Modified Westergren (11/28/2024 1:38 PM EDT) Erythrocyte Sedimentation Rate 32(H) 0 - 15 MM/HR [facility] Comment:Patients with polycy themia and many hemoglobin abnormalitiesmay have depressed sed rates whereas patients with anemiamay have elevated sed rates. 11/28/2024 1:38 PM EDT 11/28/2024 1:42 PM EDT Generic External Data Provider LAB BLOOD ORDERAB LES Final Result Performing Organization Address [facility] Co de Phone Number [facility] [address] [place] [phone] * (ABNORMAL) C-reactive Protein (11/28/2024 1:38 PM EDT) Pathologist [facility] C Reactive Protein 10.97(H) < or = 0.50 mg/dL [facility] 11/28/2024 1:38 PM EDT 11/28/2024 1:42 PM EDT Generic External Data Provider LAB BLOOD ORDERAB LES Final Result Performing Organization Address [facility] Phone Number [facility] [address] [place] [phone] Uric acid (11/28/2024 1:38 PM EDT) Pathologist [facility] Uric Acid 6.3 3.4 - 7.0 mg/dL [facility] 11/28/2024 1:38 PM EDT 11/28/2024 1:42 PM EDT Generic External Data Provider LAB BLOOD ORDERAB LES Final Result Performing Organization Address [facility] Co de Phone Number [facility] [address] [place] [phone] * (ABNORMAL) Comprehensive Metabolic Panel (11/28/2024 1:38 PM EDT) Pathologist [facility] Sodium 139 135 - 145 mmol/L [facility] Potassium 4.0 3.3 - 5.1 mmol/L [facility] Chloride 106 96 - 108 mmol/L [facility] Carbon Dioxide 25 22 - 29 mmol/L [facility] Anion Gap 12 12 - 20 [facility] Urea Nitrogen (BUN) 8(L) 9 - 16 mg/dL [facility] Creatinine, Serum 0.90 0.5 - 1.4 mg/dL [facility] Creatinine Clr Calc Pharmacy 16.7 [facility] Comment:eGFR (calculated fro m the MDRD study equation) and eCrCl(calculated from the Cockcroft-Gault equation) are based ondifferent parameters and may not yield comparable results.If eCrCl result is absurd, please check patient'sheight/weight. Estimated Glomerular Filt Rate >60 [facility] Comment:Chronic Kidney Disea se: Estimated GFR < 60 mL/min/1.79j1Famltf Kidney Disease: Estimated GFR < 15 mL/min/1.73m2 Glucose 107 60 - 115 mg/dL [facility] Calcium 9.5 8.4 - 10.2 mg/dL [facility] Bilirubin, Total 0.5 0.0 - 1.0 mg/dL [facility] Aspartate Amino Transferase 17 5 - 37 U/L [facility] Alanine Aminotransferase 23 0 - 40 U/L [facility] Total Protein 7.4 6.5 - 8.0 g/dL [facility] Albumin Level 4.7 3.5 - 5.0 g/dL [facility] Alkaline Phosphatase 68 39 - 117 U/L [facility] 11/28/2024 1:38 PM EDT 11/28/2024 1:42 PM EDT us Generic External Data Provider LAB BLOOD ORDERAB LES Final Result [facility] [address] [place] [phone] * (ABNORMAL) CBC auto differential (11/28/2024 1:38 PM EDT) White Blood Count 11.3(H) 4.8 - 10.8 X10*3/uL [facility] Red Blood Count 5.73 4.60 - 5.80 X10*6/uL [facility] Hemoglobin 16.2 14.0 - 18.0 g/dl [facility] Hematocrit 48.6 42.0 - 52.0 % [facility] Mean Corpuscular Volume 84.8 80.0 - 98.0 fL [facility] Mean Corpuscular Hemoglobin 28.3 27.0 - 33.0 pg [facility] Mean Corpuscular HGB Conc 33.3 31.0 - 36.0 g/dl [facility] Red Cell Distribution Width 13.2 11.0 - 16.0 % [facility] Platelet Count 223 160 - 400 X10*3/uL [facility] Mean Platelet Volume 10.3 9.4 - 12.4 fL [facility] Neutrophils Percent Auto 76.3(H) 45 - 73 % [facility] Imm Gran Pct Auto 0.4 0.0 - 0.4 % [facility] Lymphocytes Percent Auto 16.6(L) 20 - 40 % [facility] Monocytes Percent Auto 5.7 2 - 11 % [facility] Eosinophils Percent Auto 0.4 0 - 4 % [facility] Basophils Percent Auto 0.6 0 - 2 % [facility] NRBC Pct Auto 0.0 0.0 - 0.2 /100WBC [facility] Neutrophils Absolute Auto 8.6(H) 2.0 - 8.3 x10*3/uL [facility] Imm Gran Abs Auto 0.04(H) 0.00 - 0.03 X10*3/uL [facility] Lymphocytes Absolute Auto 1.9 1.2 - 4.9 X10*3/uL [facility] Monocytes Absolute Auto 0.6 0.1 - 1.2 X10*3/uL [facility] Eosinophils Absolute Auto 0.0 0.0 - 0.4 X10*3/uL [facility] Basophils Absolute Auto 0.1 0.0 - 0.2 X10*3/uL [facility] NRBC Abs Auto 0.000 0.0 - 0.012 X10*3/uL [facility] 11/28/2024 1:38 PM EDT 11/28/2024 1:42 PM EDT us Generic External Data Provider LAB BLOOD ORDERAB LES Final Result [facility] [address] [place] [phone] * XR Foot 1-2 Views Left (11/28/2024 1:35 PM EDT) Anatomical Region Laterality Modality Lower Extremities, Foot Left Radiogra phic Imaging 11/28/2024 1:35 PM EDT Narrative 11/28/2024 1:52 PM EDT [address] [address] XRay Report Signed Patient: Bruce Manning MR#: [id number] : 1995 Acct:[id number] Age/Sex: 29 / M ADM Date: 11/28/24 Loc: HO.ED Attending Dr: Ordering Physician: Fabian Durán Date of Service: 11/28/24 Procedure(s): XR foot LT 2V Accession Number(s): [id number] cc: Fabian Duárn; Edith Conde MD Reason for Exam: left foot redness swelling. osteo? EXAMINATION: XR FOOT 1-2 VIEWS LEFT HISTORY: left foot redness swelling. osteo? COMPARISON: Comparison is made with the prior examination dated 11/25/2024. FINDINGS: Three views of the left foot are submitted. Osseous mineralization is normal. There is no fracture or dislocation. The joint spaces are preserved. The soft tissues are unremarkable. XR/XR foot LT 2V IMPRESSION: Unremarkable examination of the left foot. Electronically signed by: Johnie Pate MD 11/28/2024 01:48 PM EDT Dictated By: Johnie Pate MD Signed By: <Electronically signed by Johnie Pate MD in OV> 11/28/24 1348 DD/ 1335 TD/TT: 11/28/24 1340 Database Consultant: Procedure Note Donotuseinterpreter, Image - 11/28/[address] [address] XRay Report Signed Patient: Ric Manning#: [id number] : 1995Acct:[id number] Age/Sex: 29 / MADM Date: 11/28/24 Loc: HO.ED Attending Dr: Ordering Physician: Fabian Durán Date of Service: 11/28/24 Procedure(s): XR foot LT 2V Accession Number(s): [id number] cc: Fabian Durán; Edith Conde MD Reason for Exam: left foot redness swelling. osteo? EXAMINATION: XR FOOT 1-2 VIEWS LEFT HISTORY: left foot redness swelling. osteo? COMPARISON: Comparison is made with the prior examination dated 11/25/2024. FINDINGS: Three views of the left foot are submitted. Osseous mineralization is normal. There is no fracture or dislocation. The joint spaces are preserved. The soft tissues are unremarkable. XR/XR foot LT 2V IMPRESSION: Unremarkable examination of the left foot. Electronically signed by: Johnie Pate MD 11/28/2024 01:48 PM EDT Dictated By: Johnie Pate MD Signed By: <Electronically signed by Johnie Pate MD in OV> 11/28/24 1348 DD/ 1335 TD/TT: 11/28/24 1340 Database Consultant: [facility] External Provider IMG XR PROCEDURES Final Result documented in this encounter Visit Diagnoses Not on filedocumented in this encounter Care Teams [employer] Relationship Specialty Start Date End Date Edith Conde MD [address] [place] [address] PCP - General Family Medicine 02/12/18 documented as of this encounter
--- OUTSIDE RECORDS SUMMARY | 2024-11-28 17:08 | XMS_ITS | Encounter Summary ---
Author Organization [employer] Address [address] [place] [address] Care Team Providers Care Assistant Production Manager Name Role Phone Edith Conde MD Primary Care Provider [phone] Encounter Details Date Type Department Care Team ([facility] Contact Info) Description 11/25/2024 Orders Only [facility] External Provider, [facility] Social History Tobacco Use Types Packs/Day Years [...] Name Priority Date/Time Associated Diagnosis Comments XR FOOT 3+ VIEWS LEFT Routine 11/25/2024 12:23 PM EDT SED RATE BY MODIFIED WESTERGREN Routine 11/25/2024 12:06 PM EDT C-REACTIVE PROTEIN Routine 11/25/2024 12 :06 PM EDT COMPREHENSIVE METABOLIC PANEL Routine 11/25/2024 12:06 PM EDT documented in this encounter Results * XR Foot 3+ Views Left (11/25/2024 12:23 PM EDT) Anatomical Region Laterality Modality Lower Extremities, Foot Left Radiogra phic Imaging 11/25/2024 12:2 3 PM EDT Narrative 11/25/2024 12:37 PM EDT [place] [address] XRay Report Signed Patient: Bruce Manning MR#: [id number] : 1995 Acct:[id number] Age/Sex: 29 / M ADM Date: 11/25/24 Loc: .ED Attending Dr: Ordering Physician: Doris Montague NP Date of Service: 11/25/24 Procedure(s): XR foot LT min 3V Accession Number(s): [id number] cc: Edith Conde MD; Doris Montague NP Reason for Exam: 5th toe pain EXAMINATION: XR FOOT, LEFT CLINICAL INFORMATION: 5th toe pain, swelling. COMPARISON: None available. TECHNIQUE: AP, lateral, and oblique views of the left foot. FINDINGS: The bones and soft tissues are normal. No fracture. Alignment is anatomic. Joint spaces are maintained. XR/XR foot LT min 3V IMPRESSION: 1. Normal left foot. 2. No abnormality of the fifth digit. Electronically signed by: Terrance Sandhu MD 11/25/2024 12:35 PM EDT RP Dictated By: Terrance Sandhu MD Signed By: <Electronically signed by Terrance Sandhu MD in OV> 11/25/24 1235 DD/ 22 TD/TT: 11/25/241223 Psych Arnp: Procedure Note Donotuseinterpreter, Image - 11/25/[address] [address] XRay Report Signed Patient: Bruce ManningMR#: [id number] : 1995Acct:[id number] Age/Sex: Date: 11/25/24 Loc: HO.ED Attending Dr: Ordering Physician: Doris Montague NP Date of Service: 11/25/24 Procedure(s): XR foot LT min 3V Accession Number(s): [id number] cc: Edith Conde MD; Doris Montague NP Reason for Exam: 5th toe pain EXAMINATION: XR FOOT, LEFT CLINICAL INFORMATION: 5th toe pain, swelling. COMPARISON: None available. TECHNIQUE: AP, lateral, and oblique views of the left foot. FINDINGS: The bones and soft tissues are normal. No fracture. Alignment is anatomic. Joint spaces are maintained. XR/XR foot LT min 3V IMPRESSION: 1. Normal left foot. 2. No abnormality of the fifth digit. Electronically signed by: Terrance Sandhu MD 11/25/2024 12:35 PM EDT RP Dictated By: Terrance Sandhu MD Signed By: <Electronically signed by Terrance Sandhu MD in OV> 11/25/24 1235 DD/ 1223 TD/TT: 11/25/241223 Psych Arnp: [facility] External Provider IMG XR PROCEDURES Final Result * Sed Rate by Modified Westergren (11/25/2024 12:06 PM EDT) Erythrocyte Sedimentation Rate 7 0 - 15 MM/HR [facility] Comment:Patients with polycy themia and many hemoglobin abnormalitiesmay have depressed sed rates whereas patients with anemiamay have elevated sed rates. 11/25/2024 12:0 6 PM EDT 11/25/2024 12:12 PM EDT Generic External Data Provider LAB BLOOD ORDERAB LES Final Result Performing Organization Address City/[facility]/ZIP Co de Phone Number [facility] [address] [place] [phone] * (ABNORMAL) C-reactive Protein (11/25/2024 12:06 PM EDT) Pathologist [facility] C Reactive Protein 3.74(H) < or = 0.50 mg/dL [facility] 11/25/2024 12:0 6 PM EDT 11/25/2024 12:12 PM EDT Generic External Data Provider LAB BLOOD ORDERAB LES Final Result Performing Organization Address [facility]/ZIP Co de Phone Number [facility] [address] [place] [phone] * Comprehensive Metabolic Panel (11/25/2024 12:06 PM EDT) Pathologist [facility] Sodium 139 135 - 145 mmol/L [facility] Potassium 4.3 3.3 - 5.1 mmol/L [facility] Chloride 106 96 - 108 mmol/L [facility] Carbon Dioxide 25 22 - 29 mmol/L [facility] Anion Gap 12 12 - 20 [facility] Urea Nitrogen (BUN) 9 9 - 16 mg/dL [facility] Creatinine, Serum 0.80 0.5 - 1.4 mg/dL [facility] Creatinine Clr Calc Pharmacy 149.7 [facility] Comment:eGFR (calculated fro m the MDRD study equation) and eCrCl(calculated from the Cockcroft-Gault equation) are based ondifferent parameters and may not yield comparable results.If eCrCl result is absurd, please check patient'sheight/weight. Estimated Glomerular Filt Rate >60 [facility] Comment:Chronic Kidney Disea se: Estimated GFR < 60 mL/min/1.02z3[place] Kidney Disease: Estimated GFR < 15 mL/min/1.73m2 Glucose 97 60 - 115 mg/dL [facility] Calcium 9.3 8.4 - 10.2 mg/dL [facility] Bilirubin, Total 0.5 0.0 - 1.0 mg/dL [facility] Aspartate Amino Transferase 18 5 - 37 U/L [facility] Alanine Aminotransferase 27 0 - 40 U/L [facility] Total Protein 7.3 6.5 - 8.0 g/dL [facility] Albumin Level 4.7 3.5 - 5.0 g/dL [facility] Alkaline Phosphatase 72 39 - 117 U/L [facility] 11/25/2024 12:0 6 PM EDT 11/25/2024 12:12 PM EDT us Generic External Data Provider LAB BLOOD ORDERAB LES Final Result [facility] [address] [place] [phone] documented in this encounter Visit Diagnoses Not on filedocumented in this encounter Care Teams Assistant Production Manager Relationship Specialty Start Date End Date Edith Conde MD [address] [place] [phone] PCP - General Family Medicine 02/12/18 documented as of this encounter
--- OUTSIDE RECORDS SUMMARY | 2024-11-28 17:08 | XMS_ITS | Encounter Summary ---
Author Organization [employer] Address [address] [place] [address] Care Team Providers Care Hot Packer Name Role Phone Edith Conde MD Primary Care Provider [phone] Encounter Details Date Type Department Care Team ([facility] st Contact Info) Description 09/24/2024 Results Follow-Up [facility] [address] [place] [address] Edith Conde MD [address] [place] [address] XR Lumbar Spine 2-3 Views Social History [...] on filedocumented in this encounter Care Teams Hot Packer Relationship Specialty Start Date End Date Edith Conde MD [address] [place] [address] PCP - General Family Medicine 02/12/18 documented as of this encounter
--- OUTSIDE RECORDS SUMMARY | 2024-11-28 17:08 | XMS_ITS | Clinical Summary ---
Author Organization [employer] Address [address] [facility] [address] [place] [address] Care Team Providers Care Geophysical Prospecting Surveyor Name Role Phone Edith Conde MD Primary Care Provider [phone] Allergies No known active allergies Medications Acetaminophen Extra Strength 500 MG tablet TAKE 2 TABLET BY ORAL ROUTE EVERY 6 HOURS NEEDED NEEDED FOR PAIN AND/OR FEVER 2 Active Blood Pressure Monitoring (Omron 3 Series BP Monitor) device USE TO CHECK BLOOD PRESSURE DAILY 2 Active loratadine (Claritin) 10 MG tablet Take 10 mg by mouth in the morning. 2 Active Spacer/Aero-Holdi ng Chambers (OptiChamber Laurie) misc USE DIRECTED EVERY 4 HOURS NEEDED 2 Active Blood Pressure Monitoring (Blood Pressure Cuff) miscIndications:E levated blood pressure reading 1 each Once daily. 1 each 4 Active QUEtiapine (SEROquel) 50 MG tablet Take 50 mg by mouth at bedtime. 4 Active sertraline (Zoloft) 50 MG tablet Take 50 mg by mouth in the morning. 4 Active zolpidem (Ambien) 10 MG tablet Take 10 mg by mouth if needed at bedtime. 4 Active clotrimazole (Lotrimin) 1 % cream PLEASE SEE ATTACHED FOR DETAILED DIRECTIONS 28 g 1 4 Active albuterol 108 (90 Base) MCG/ACT inhalerIndication s:Moderate persistent asthma without complication Inhale 2 puffs every 4 (four) hours if needed for wheezing. 18 g 11 4 Active LORazepam (Ativan) 0.5 MG tablet Take 0.5 mg by mouth if needed in the morning and at bedtime for anxiety. 4 Active Mometasone Furoate (Asmanex HFA) 200 MCG/ACT aerosolIndication s:Moderate persistent asthma without complication Inhale 1 Act (200 mcg) 2 times daily. 60 Act 11 5 03/08/19 Active losartan (Cozaar) 25 MG tabletIndications :Elevated blood pressure reading Take 1 tablet (25 mg) by mouth Once per day. 90 tablet 3 5 09/24/19 Active cetirizine (ZyrTEC) 10 MG tablet Take 1 tablet (10 mg) by mouth Once per day. 90 tablet 3 5 09/24/19 Active Active Problems Problem Noted Date Diagnosed Date [...] 12:18 PM EDT): -Patient had evaluation with Nonprofit Manager. -Difficulty with evaluation due to patient's intellectual disability.. -Pt evaluated by ENT and was advised that her did not have significant hearing loss and had Normal Ear Exam. Assessment & Plan (04/13/2023 6:47 AM EST): -Patient had evaluation with Nonprofit Manager. -Difficulty with evaluation due to patient's intellectual disability.. -Pt evaluated by ENT and was advised that her did not have significant hearing loss and had Normal Ear Exam. Assessment & Plan (03/21/2022 3:15 PM EST): -Patient had evaluation with Nonprofit Manager. -Difficulty with evaluation due to patient's intellectual [...] compliance and therapy response. - following with [facility] Assessment & Plan (04/13/2023 [...] PM EDT): He has been referred to [facility] many times, but his family has a difficulty keeping appt Medications: Risperidone 0.5 mg bid; sertraline 50 mg daily; hydroxyzine 25 mg prn. Previously on [place]az[place]am when [place] was in [place] Previously seen by [facility] clinician and his mother was referred to [facility]. The family needs support in navigating social and behavioral health services. He did not want to go to Adult Day program. He wanted to work. His family is now accepting our recommendation to try day program. Assessment & Plan (04/13/2023 6:47 AM EST): He has been referred to [facility] many times, but his family has a difficulty keeping appt Medications: Risperidone 0.5 mg bid; sertraline 50 mg daily; hydroxyzine 25 mg prn. Previously on lorazepam when he was in [place]. Previously seen by [facility] clinician and his mother was referred to [facility]. The family needs support in navigating social and behavioral health services. He did not want to go to Adult Day program. He wanted to work. His family is now accepting our recommendation to try day program. Assessment & Plan (03/21/2022 3:13 PM EST): He has been referred to [facility] many times, but his family has a difficulty keeping appt Medications: Risperidone 0.5 mg bid; sertraline 50 mg daily; hydroxyzine 25 mg prn. Previously on lorazepam when he was in [place]. Previously seen by [facility] clinician and his mother was referred to [facility]. The family needs support in navigating [...] Encounters Date Type Department Care Team Description 11/28/2024 Orders Only GENERIC EXTERNAL DATA DEPARTMENT Provider, Generic External Data 11/25/2024 Orders Only [facility] External Provider, [facility] 10/29/[address] [facility] [address] [place] [address] Edith Conde MD december10/12/2024 Orders Only [facility] External Provider, [facility] 09/24/2024 Results Follow-Up [facility] [address] [place] [address] Edith Conde MD XR Lumbar Spine 2-3 Views 09/23/2024 2:30 PM EDT Office Visit [address] [address] Edith Conde MD Screening for diabetes mellitus [...] syndrome; Poor dentition 09/23/2024 Travel 09/22/[address] [address] Edith Conde MD chartprep 09/15/2024 Patient Outreach [address] [address] Edith Conde MD Care Coordination (CHW outreach for SDOH food needs-referral completed /) 09/15/2024 Patient Outreach [address] [address] Edith Conde MD Pre-visit Planning (SDOH Screening [...] Health Maintenance Due Date Last Done Comments Family Planning (PISQ) 2008 HPV Vaccines (1 - 3-dose series) 2008 Diabetes: Hemoglobin A1C 04/18/2024 03/2 024, 01/03/2021, 08/14/2019, Additional history exists COVID-19 Vaccine ( season) 2024 04/12/2023, 03/21/2022, 01/24/2021, Additional history exists Influenza Vaccine (#1) 2024 , 12/26/2018, 03/20/2018, Additional history exists Hepatitis B Vaccines (3 of 3 - 19+ 3-dose series) 11/18/2024 09/23/2024, 04/12/2023 Alcohol/Substance Use Screening 09/23/2025 09/23/2024 Disability Screening 09/23/2025 09/23/2024 SDOH Screening 09/23/2025 09/23/2024 Tobacco Screening 09/30/2025 09/30/2024 Lipid Panel 11/03/2029 11/03/2024, 03/0 08/2023, 01/03/2021 DTaP/Tdap/Td Vaccines (3 - Td or Tdap) 09/23/2034 09/23/2024, 05/08/2013 Zoster Vaccines (1 of 2) 2043 RSV Patients and Patients Aged 60 years or older (1 - 1-dose 75+ series) 2068 Pneumococcal Vaccine: Pediatrics (0 to 5 Years) and At-Risk Patients (6 to 49) Years Completed 04/12/2023, 12/30/2013 HIV Screening Completed 11/03/2024 Hepatitis C Screening Completed 11/03/2024 Depression Screening Discontinued HIB Vaccines Aged Out [...] LACTIC ACID Routine 11/28/2024 3:28 PM EDT SED RATE BY MODIFIED WESTERGREN Routine 11/28/2024 1:38 PM EDT C-REACTIVE PROTEIN Routine 11/28/2024 1: 38 PM EDT URIC ACID Routine 11/28/2024 1:38 PM EDT COMPREHENSIVE METABOLIC PANEL Routine 11/28/2024 1:38 PM EDT CBC WITH AUTO DIFFERENTIAL Routine 11/28/2024 1:38 PM EDT XR FOOT 1-2 VIEWS LEFT Routine 1:35 PM EDT XR FOOT 3+ VIEWS LEFT Routine 11/25/2024 12:23 PM EDT SED RATE BY MODIFIED WESTERGREN Routine 11/25/2024 12:06 PM EDT C-REACTIVE PROTEIN Routine 11/25/2024 12 :06 PM EDT COMPREHENSIVE METABOLIC PANEL Routine 11/25/2024 12:06 PM EDT CBC WITH AUTO DIFFERENTIAL Routine 11/25/2024 12:06 PM EDT HEPATITIS A ANTIBODY, TOTAL Routine 11/03/2024 2:20 PM EDT Immunity status testing HIV 1/2 ANTIGEN/ANTIBODY, FOURTH GENERATION W/RFL Routine 11/03/2024 2:20 PM EDT Routine screening for STI (sexually transmitted infection) HEPATITIS C AB W/REFL TO HCV RNA, QN, PCR Routine 11/03/2024 2:20 PM EDT Routine screening for STI (sexually transmitted infection) VITAMIN D,25-OH,TOTAL,IA Routine 11/03/2024 2:20 PM EDT Vitamin D deficiency URINALYSIS, COMPLETE, WITH REFLEX TO CULTURE Routine 11/03/2024 2:20 PM EDT Increased urinary frequency LIPID PANEL WITH REFLEX TO DIRECT LDL Routine 11/03/2024 2:20 PM EDT Screening for lipid disorders COMPREHENSIVE METABOLIC PANEL Routine 11/03/2024 2:20 PM EDT Diarrhea, unspecified type TSH W/REFLEX TO FT4 Routine 11/03/2024 2 :20 PM EDT Diarrhea, unspecified type CBC WITH AUTO DIFFERENTIAL Routine 11/03/2024 2:20 PM EDT Diarrhea, unspecified type Vitiligo XR CHEST 1 VIEW Routine 10/12/2024 3:25 AM EDT STREP A NUCLEIC ACID Routine 10/12/2024 3:17 AM EDT XR LUMBAR SPINE 2-3 VIEWS Routine 09/23/2024 3:11 PM EDT Chronic bilateral low back pain without sciatica HEMOGLOBIN A1C Routine 04/19/2023 11:09 AM EST Prediabetes from Last 3 Months or Most Recently Relevant to Health Maintenance Results * Lactic Acid (11/28/2024 3:28 PM EDT) Lactic Acid 1.2 0.5 - 2.0 mmol/L [facility] 11/28/2024 3:28 PM EDT 11/28/2024 3:35 PM EDT us Generic External Data Provider LAB BLOOD ORDERAB LES Final Result [facility] [address] [place] [phone] [phone] * (ABNORMAL) CBC auto differential (11/28/2024 1:38 PM EDT) Only the most recent of3 resultswithin the time period is included. White Blood Count 11.3(H) 4.8 - 10.8 X10*3/uL [facility] Red Blood Count 5.73 4.60 - 5.80 X10*6/uL [facility] Hemoglobin 16.2 14.0 - 18.0 g/dl [facility] Hematocrit 48.6 42.0 - 52.0 % [facility] Mean Corpuscular Volume 84.8 80.0 - 98.0 fL [facility] Mean Corpuscular Hemoglobin 28.3 27.0 - 33.0 pg [facility] Mean Corpuscular HGB Conc 33.3 31.0 - 36.0 g/dl [facility] Red Cell Distribution Width 13.2 11.0 - 16.0 % [facility] Platelet Count 223 160 - 400 X10*3/uL [facility] Mean Platelet Volume 10.3 9.4 - 12.4 fL [facility] Neutrophils Percent Auto 76.3(H) 45 - 73 % [facility] Imm Gran Pct Auto 0.4 0.0 - 0.4 % [facility] Lymphocytes Percent Auto 16.6(L) 20 - 40 % [facility] Monocytes Percent Auto 5.7 2 - 11 % [facility] Eosinophils Percent Auto 0.4 0 - 4 % [facility] Basophils Percent Auto 0.6 0 - 2 % [facility] NRBC Pct Auto 0.0 0.0 - 0.2 /100WBC [facility] Neutrophils Absolute Auto 8.6(H) 2.0 - 8.3 x10*3/uL [facility] Imm Gran Abs Auto 0.04(H) 0.00 - 0.03 X10*3/uL [facility] Lymphocytes Absolute Auto 1.9 1.2 - 4.9 X10*3/uL [facility] Monocytes Absolute Auto 0.6 0.1 - 1.2 X10*3/uL [facility] Eosinophils Absolute Auto 0.0 0.0 - 0.4 X10*3/uL [facility] Basophils Absolute Auto 0.1 0.0 - 0.2 X10*3/uL [facility] NRBC Abs Auto 0.000 0.0 - 0.012 X10*3/uL [facility] 11/28/2024 1:38 PM EDT 11/28/2024 1:42 PM EDT Generic External Data Provider LAB BLOOD ORDERAB LES Final Result Performing Organization Address [facility] Co de Phone Number [facility] [address] [place] [phone] * (ABNORMAL) Sed Rate by Modified [place] (11/28/2024 1:38 PM EDT) Only the most recent of2 resultswithin the time period is included. Pathologist [facility] Erythrocyte Sedimentation Rate 32(H) 0 - 15 MM/HR [facility] Comment:Patients with polycy themia and many hemoglobin abnormalitiesmay have depressed sed rates whereas patients with anemiamay have elevated sed rates. 11/28/2024 1:38 PM EDT 11/28/2024 1:42 PM EDT Generic External Data Provider LAB BLOOD ORDERAB LES Final Result Performing Organization Address [facility] Co de Phone Number [facility] [address] [place] [phone] * (ABNORMAL) C-reactive Protein (11/28/2024 1:38 PM EDT) Only the most recent of2 resultswithin the time period is included. Pathologist [facility] C Reactive Protein 10.97(H) < or = 0.50 mg/dL [facility] 11/28/2024 1:38 PM EDT 11/28/2024 1:42 PM EDT Generic External Data Provider LAB BLOOD ORDERAB LES Final Result Performing Organization Address City/[facility]/ZIP Co de Phone Number [facility] [address] [place] [phone] * Uric acid (11/28/2024 1:38 PM EDT) Uric Acid 6.3 3.4 - 7.0 mg/dL [facility] 11/28/2024 1:38 PM EDT 11/28/2024 1:42 PM EDT Generic External Data Provider LAB BLOOD ORDERAB LES Final Result Performing Organization Address [facility] de Phone Number [facility] [address] [place] [phone] * (ABNORMAL) Comprehensive Metabolic Panel (11/28/2024 1:38 PM EDT) Only the most recent of3 resultswithin the time period is included. Pathologist [facility] Sodium 139 135 - 145 mmol/L [facility] Potassium 4.0 3.3 - 5.1 mmol/L [facility] Chloride 106 96 - 108 mmol/L [facility] Carbon Dioxide 25 22 - 29 mmol/L [facility] Anion Gap 12 12 - 20 [facility] Urea Nitrogen (BUN) 8(L) 9 - 16 mg/dL [facility] Creatinine, Serum 0.90 0.5 - 1.4 mg/dL [facility] Creatinine Clr Calc Pharmacy 16.7 [facility] Comment:eGFR (calculated fro m the MDRD study equation) and eCrCl(calculated from the Cockcroft-Gault equation) are based ondifferent parameters and may not yield comparable results.If eCrCl result is absurd, please check patient'sheight/weight. Estimated Glomerular Filt Rate >60 [facility] Comment:Chronic Kidney Disea se: Estimated GFR < 60 mL/min/[id number] Kidney Disease: Estimated GFR < 15 mL/min/1.73m2 Glucose 107 60 - 115 mg/dL [facility] Calcium 9.5 8.4 - 10.2 mg/dL [facility] Bilirubin, Total 0.5 0.0 - 1.0 mg/dL [facility] Aspartate Amino Transferase 17 5 - 37 U/L [facility] Alanine Aminotransferase 23 0 - 40 U/L [facility] Total Protein 7.4 6.5 - 8.0 g/dL [facility] Albumin Level 4.7 3.5 - 5.0 g/dL [facility] Alkaline Phosphatase 68 39 - 117 U/L [facility] 11/28/2024 1:38 PM EDT 11/28/2024 1:42 PM EDT us Generic External Data Provider LAB BLOOD ORDERAB LES Final Result Performing Organization Address City/State/[facility] Co de Phone Number [facility] [address] [place] [address] [phone] * XR Foot 1-2 Views Left (11/28/2024 1:35 PM EDT) Anatomical Region Laterality Modality Lower Extremities, Foot Left Radiogra phic Imaging 11/28/2024 1:35 PM EDT Narrative 11/28/2024 1:52 PM EDT [address] [address] XRay Report Signed Patient: Bruce Manning MR#: [id number] : 1995 Acct:[id number] Age/Sex: 29 / M ADM Date: 11/28/24 Loc: .ED Attending Dr: Ordering Physician: Fabian Durán Date of Service: 11/28/24 Procedure(s): XR foot LT 2V Accession Number(s): [id number] cc: Fabian Durán; Edith Conde MD Reason [...] Johnie Pate MD 11/28/2024 01:48 PM EDT RP Dictated By: Johnie Pate MD Signed By: <Electronically signed by Johnie Pate MD in OV> 11/28/24 1348 DD/ 1335 TD/TT: 11/28/24 1340 Systems Analyst Engineer: Procedure Note Donotuseinterpreter, Image - 11/28/2024 [place] [address] XRay Report Signed Patient: Ric Manning#: [id number] : 1995Acct:[id number] Age/Sex: Date: 11/28/24 Loc: HO.ED Attending Dr: Ordering Physician: Fabian Durán Date of Service: 11/28/24 Procedure(s): XR foot LT 2V Accession Number(s): [id number] cc: Fabian Durán; Edith Conde MD Reason [...] Johnie Pate MD 11/28/2024 01:48 PM EDT RP Dictated By: Johnie Pate MD Signed By: <Electronically signed by Johnie Pate MD in OV> 11/28/24 1348 DD/ 1335 TD/TT: 11/28/24 1340 Systems Analyst Engineer: [facility] External Provider IMG XR PROCEDURES Final Result * XR Foot 3+ Views Left (11/25/2024 12:23 PM EDT) Anatomical Region Laterality Modality Lower Extremities, Foot Left Radiogra phic Imaging 11/25/2024 12:2 3 PM EDT Narrative 11/25/2024 12:37 PM EDT [address] [address] XRay Report Signed Patient: Bruce Manning MR#: [id number] : 1995 Acct:[id number] Age/Sex: 29 / M ADM Date: 11/25/24 Loc: HO.ED Attending Dr: Ordering Physician: Doris Montague NP Date of Service: 11/25/24 Procedure(s): XR foot LT min 3V Accession Number(s): [id number] cc: Edith Conde MD; Doris Montague NP [...] Terrance Sandhu MD 11/25/2024 12:35 PM EDT Dictated By: Terrance Sandhu MD Signed By: <Electronically signed by Terrance Sandhu MD in OV> 11/25/24 1235 DD/ 1223 TD/TT: 11/25/24 1224 Systems Analyst Engineer: Procedure Note Donjose minterpreter, Image - 11/25/[address] [address] XRay Report Signed Patient: Ric Manning#: [id number] : 1995Acct:[id number] Age/Sex: 29 / MADM Date: 11/25/24 Loc: HO.ED Attending Dr: Ordering Physician: Doris Montague NP Date of Service: 11/25/24 Procedure(s): XR foot LT min 3V Accession Number(s): [id number] cc: Edith Conde MD; Doris Montague NP [...] in OV> 11/25/24 1235 DD/ 1223 TD/TT: 11/25/24 1224 Systems Analyst Engineer: [facility] External Provider IMG XR PROCEDURES Final Result * (ABNORMAL) Vitamin D, 25-Hydroxy, Total, Immunoassay (11/03/2024 2:20 PM EDT) Vitamin D 25-OH Total 28.5(L) >30 ng/mL [facility] Comment: Health Based Reference Values*< 20 ng/mL Gpvuighab92-80 ng/mL Insufficient> 30 ng/mL Sufficient*Susana ROBLERO. N Engl J Med. 2007;357:266-280There is no well-established upper level of normal vitamin Dlevels. Some laboratories use 50 ng/mL as an upper limit ofnormal. However, toxicity is patient-dependent and may occurat any level. Careful correlation with the patient'spresentation is necessary and, if there is concern forvitamin D toxicity, treatment should be consideredirrespective of the serum level.Care must be taken in interpreting Vitamin D results fromdifferent laboratories and methodologies. Published datademonstrated that results from patients undergoinghemodialysis may show a negative bias when tested withvarious automated 25-OH vitamin D assays when compared toLC-MS/MS.When testing samples from patients whose predominant form ofVitamin D is Vitamin D2, such as patients receiving VitaminD2 supplementation, results that are subtherapeutic shouldbe confirmed with another method such as LC-MS/MS. Blood Venous blood specimen / Unknown 11/03/2024 2:20 PM EDT 11/03/2024 4:09 PM EDT us Edith Conde MD LAB BLOOD ORDERABLES Final Resul t [facility] [address] [place] [phone] * Urinalysis, Complete, with Reflex to Culture (11/03/2024 2:20 PM EDT) Color Urine Yellow [facility] Appearance Urine Clear [facility] PH 6.5 5.0 - 9.0 [facility] Glucose Urine UA Negative Negative mg/dL [facility] Urine Blood Negative Negative [facility] Specific [place] - Urine 1.020 1.005 - 1.025 [facility] Urine Protein Trace Neg-Trace mg/dL [facility] Urine Ketones Negative Negative mg/dL [facility] Nitrite Urine Negative Negative [facility] Leukocyte Esterase Urine Negative Negative [facility] RBC Urine 0-2 0 - 2 /HPF [facility] Urine WBC 0-5 0 - 5 /HPF [facility] Urine Squamous Epithelial Cell 0-2 0 - 2 /HPF [facility] Urine Bacteria None Seen None Seen [facility] Hyaline Casts, Urine 0-2 0 - 2 /LPF [facility] Urine 11/03/2024 2:20 PM EDT 11/03/2024 4:03 PM EDT Narrative [facility] - 11/03/2024 4:29 PM EDT Urine, Clean Catch Edith Conde MD LAB URINE ORDERABLES Final Resul t Performing Organization Address [facility]/ZIP Co de Phone Number [facility] [address] [place] [phone] * TSH with Reflex to Free T4 (11/03/2024 2:20 PM EDT) TSH reflex Free T4 1.13 0.32 - 4.0 uIU/mL [facility] Blood 11/03/2024 2:20 PM EDT 11/03/2024 4:09 PM EDT us Edith Conde MD LAB BLOOD ORDERABLES Final Resul t Performing Organization Address City/[facility]/ZIP Co de Phone Number [facility] [address] [place] [phone] * (ABNORMAL) Lipid Panel with Reflex to Direct LDL (11/03/2024 2:20 PM EDT) Triglycerides 78 <150 mg/dL [facility] Comment:Desirable Triglyceri de: less than 150 mg/dLBorderline High Triglyceride 150-199 mg/dLHigh Triglyceride: 200-499 mg/dLVery High Triglyceride: greater than or equal to 5OO mg/dL Cholesterol 198 <200 mg/dL [facility] Comment:Desirable Cholestero l: less than 200 mg/dLBorderline High Cholesterol: 200-239 mg/dLHigh Cholesterol: greater than 239 mg/dL LDL Cholesterol Calculated 146(H) <100 mg/dL [facility] Comment:Desirable LDL: less than 100 mg/dLNear Optimal/Above Optimal LDL: 110- 129 mg/dLBorderline High LDL: 130-159 mg/dLHigh LDL: 160-189 mg/dLVery High LDL: greater than or equal to 190 mg/dL HDL Cholesterol 37(L) >40 mg/dL [facility] Comment:Desirable HDL: great er than 40 mg/dL Note: This HDL assay may give artificially low results in patients with liver disease. Blood 11/03/2024 2:20 PM EDT 11/03/2024 4:09 PM EDT us Edith Conde MD LAB BLOOD ORDERABLES Final Resul t Performing Organization Address [facility] Co de Phone Number [facility] [address] [place] [phone] * Hepatitis C Antibody with Reflex to HCV, RNA, Quantitative, Real-Time PCR (11/03/2024 2:20 PM EDT) Hepatitis C Antibody Nonreactive Nonreactive [facility] Comment:Antibodies to HCV no t detected; does not exclude early acuteHCV infection. Venous blood specimen / Unknown 11/03/2024 2:20 PM EDT 11/03/2024 4:09 PM EDT us Edith Conde MD LAB BLOOD ORDERABLES Final Resul t Performing Organization Address [facility] Co de Phone Number [facility] [address] [place] [phone] * Hepatitis A Antibody, Total (11/03/2024 2:20 PM EDT) Hepatitis A Antibody IgG Nonreactive Nonreactive [facility] Venous blood specimen / Unknown 11/03/2024 2:20 PM EDT 11/03/2024 4:09 PM EDT us Edith Conde MD LAB BLOOD ORDERABLES Final Resul t Performing Organization Address [facility] Co de Phone Number [facility] [address] [place] [phone] * HIV-1/2 Antigen and Antibodies, Fourth Generation, with Reflexes (11/03/2024 2:20 PM EDT) HIV AB/AG Nonreactive Nonreactive [facility] Comment:HIV-1 p24 Ag and/or HIV-1/HIV-2 Ab not detected.A test result that is nonreactive does not exclude thepossibility of exposure to or infection with HIV-1 and/orHIV-2. Nonreactive results in this assay for individualswith prior exposure to HIV-1 and/or HIV-2 may be due toantigen and antibody levels that are below the limit ofdetection of this assay.The [place] HIV Ag/Ab Combo assay result andsupplemental assay results should be interpreted inconjunction with the patient's clinical presentation,history and other laboratory results. If the results areinconsistent with clinical evidence, additional testing issuggested to confirm the result. Venous blood specimen / Unknown 11/03/2024 2:20 PM EDT 11/03/2024 4:09 PM EDT us Eidth Conde MD LAB BLOOD ORDERABLES Final Resul t [facility] [address] [place] [address] [phone] * XR Chest 1 View (10/12/2024 3:25 AM EDT) Anatomical Region Laterality Modality Chest Radiographic [place] 10/12/2024 3:25 AM EDT Narrative 10/12/2024 3:27 AM EDT [address] [address] XRay Report Signed Patient: Bruce Manning MR#: [id number] : 1995 Acct:[id number] Age/Sex: 29 / M ADM Date: 10/12/24 Loc: .ED Attending Dr: Ordering Physician: Generic ED Physician Date of Service: 10/12/24 Procedure(s): XR chest 1V Accession Number(s): [id number] cc: Generic ED Physician; Edith Conde MD CLINICAL HISTORY: cough 1 view chest x-ray Comparison: None provided Findings: Heart size is magnified. No focal consolidation or pleural effusion. Osseous structures unremarkable. IMPRESSION: 1. No acute findings. This document has been electronically signed by: Davi Medina MD on 10/12/2024 03:25:16 Dictated By: Davi Medina MD Signed By: <Electronically signed by Davi Medina MD in OV> 10/12/24325 DD/ 4 TD/TT: 10/12/24324 Systems Analyst Engineer: Procedure Note Donotuseinterpreter, Image - 10/12/2024 [place] [address] XRay Report Signed Patient: Ric Manning#: [id number] : 1995Acct:[id number] Age/Sex: MAD Date: 10/12/24 Loc: .ED Attending Dr: Ordering Physician: Generic ED Physician Date of Service: 10/12/24 Procedure(s): XR chest 1V Accession Number(s): [id number] cc: Generic ED Physician; Edith Conde MD CLINICAL HISTORY: cough 1 view chest x-ray Comparison: None provided Findings: Heart size is magnified. No focal consolidation or pleural effusion. Osseous structures unremarkable. IMPRESSION: 1. No acute findings. This document has been electronically signed by: Davi Medina MD on 10/12/2024 03:25:16 Dictated By: Davi Medina MD Signed By: <Electronically signed by Davi Medina MD in OV> 10/12/24325 DD/ 4 TD/TT: 10/12/24324 Systems Analyst Engineer: [facility] External Provider IMG XR PROCEDURES Final Result * Strep A Nucleic Acid (10/12/2024 3:17 AM EDT) IDNOW SERIAL# [id number] [facility] Strep A Nucleic Acid Invalid Negative [facility] Comment:All test results mus t be correlated with clinical findings.This test has not been evaluated for monitoring treatment ofinfection.Additional follow-up testing using the culture method isrequired if the result is negative and clinical symptomspersist, or in the event of an acute rheumatic feveroutbreak. 10/12/2024 3:17 AM EDT 10/12/2024 3:24 AM EDT us Generic External Data Provider LAB MICROBIOLOGY - GENERAL ORDERABLES Final Result Performing Organization Address City/State/[facility] Co de Phone Number [facility] [address] [place] [phone] * XR Lumbar Spine 2-3 Views (09/23/2024 3:11 PM EDT) Anatomical Region Laterality Modality Spine, L-spine Radiographic [place] ging 09/23/2024 3:11 PM EDT Narrative 09/23/2024 4:25 PM EDT [address] [address] XRay Report Signed Patient: Bruce Manning MR#: [id number] : 1995 Acct:[id number] Age/Sex: 29 / M ADM Date: 09/23/24 Loc: HO.HHCX Attending Dr: Edith Conde MD Ordering Physician: Edith Conde MD Date of Service: 09/23/24 Procedure(s): XR lumbar spine 2-3V Accession Number(s): [id number] cc: Edith Conde MD EXAMINATION: XR LUMBOSACRAL [...] 09/23/24 1622 DD/ 1511 TD/TT: 09/23/24 1602 Systems Analyst Engineer: FRANKY Procedure Note Donotuseinterpreter, Image - 09/23/[address] [address] XRay Report Signed Patient: Bruce ManningMR#: [id number] : 1995Acct:[id number] Age/Sex: 29 / MADM Date: 09/23/24 Loc: HO.HHCX Attending Dr: Edith Conde MD Ordering Physician: Edith Conde MD Date of Service: 09/23/24 Procedure(s): XR lumbar spine 2-3V Accession Number(s): [id number] cc: Edith Conde MD EXAMINATION: XR LUMBOSACRAL [...] 09/23/24 1622 DD/ 1511 TD/TT: 09/23/24 1602 Systems Analyst Engineer: [facility] Edith Conde MD IMG XR PROCEDURES Final Result * Hemoglobin A1c (04/19/2023 11:09 AM EST) Hemoglobin A1c 5.4 <6.0 % [facility] Comment:Hemoglobin A1C Refer ence Range Adults: 4.8 - 6.0 % Non diabetic: < 6.0 % Goal: < 7.0 %Additional Action Suggested: > 8.0 %Note: Hemoglobin A1c results are invalid for patients with abnormal amounts of HbF. Blood transfusions may impact the HbA1c concentration in the patient sample. Estimated Average Glucose 108 mg/dL [facility] Comment:eAG = Estimated ave rage glucose which is %A1C expressed asaverage glucose, using the formula of the M4R-WkoysmoIoinisk Glucose study (ADAG), Diabetes Care, Vol.31,#8,Sep. 2007 Blood Venous blood specimen / Unknown 04/19/2023 11:09 AM EST 04/19/2023 12:57 PM EST us Edith Conde MD LAB BLOOD ORDERABLES Final Resul t [facility] [address] [place] [phone] from Last 3 Months or Most Recently Relevant to Health Maintenance Insurance [employer] C3 Care Teams Geophysical Prospecting Surveyor Relationship Specialty Start Date End Date Edith Conde MD [address] [place] [address] PCP - General Family Medicine 02/12/18
--- OUTSIDE RECORDS SUMMARY | 2024-11-28 17:08 | XMS_ITS | Encounter Summary ---
Author Organization [facility] Address [address] [facility] [address] [place] [address] Care Team Providers Care Fingernail Sculptor Name Role Phone Edith Conde MD Primary Care Provider [phone] Encounter Details Date Type Department Care Team ([facility] st Contact Info) Description 05/15/2023 Orders Only [facility] [address] [place], [place] [phone] Edith Conde MD [address] [place], [place] [phone] Vision impairment (Primary Dx) Social History Tobacco [...] loss documented in this encounter Care Teams Fingernail Sculptor Relationship Specialty Start Date End Date Edith Conde MD [address] [place], [place] [phone] PCP - General Family Medicine 02/12/18 documented as of this encounter
[2024-11-28 18:15] VITALS: BP 139/84; PULSE 96; RESP 20; TEMP 36.8; O2SAT 98
--- NOTE | 2024-11-28 19:25 | PC.NURSE ---
assumed care f pt, aunt at bedside, pt unable to clearly state if he has pain, aunt states he has tenderness to touch on foot, reddened area with open wound noted on upper plantar foot. pt grimace when touched. ambulating with wheelchair to bathroom, SP02 at94% room air.
--- NOTE | 2024-11-28 20:30 | PC.NURSE ---
pharmacy consult: spoke with pharmacy as pt flovent diskus was unavailable in ED, pharmacy confirms they will bring it down.
[2024-11-28 20:47] VITALS: PULSE 84; RESP 16; O2SAT 98
[2024-11-28] MEDS: Fluticasone Propionate 250 MCG BLST.W.DEV 1 PUFF INHALE (20:48)
--- NOTE | 2024-11-28 20:55 | MHC.EDTECH ---
patient in a hospital bed
--- NOTE | 2024-11-28 21:02 | PC.NURSE ---
pt refused seroquel, asked this RN and aunt if this is the medication that make anuradha seepy, aunt advised it is, pt declined, aunt and this RN asked pt 2 more times and he admittedly refused, medication wasted in pyxus and not given in APR.
--- NOTE | 2024-11-28 21:55 | PC.NURSE ---
housekeeper home Alysa advised: pt is developmentally delayed, aunt at bedside, she would like to stay with pt. Pt i hospital bed.
[2024-11-29] VITALS (7 sets, daily range): BP systolic 114–144; BP diastolic 70–94; PULSE 84–120; RESP 16–20; TEMP 36.2–38.3; O2SAT 93–98
[2024-11-29] MEDS: 0.9 % Sodium Chloride Flush 3 ML SYRINGE IVFLUSH ×3 (02:01→16:53)
[2024-11-29 07:02] LABS: MANUAL DIFF FLAG NO
[2024-11-29 07:10] LABS: Hematocrit 45.7 % (42.0-52.0); Hemoglobin 15.1 g/dl (14.0-18.0); Imm Gran Abs Auto 0.04 X10*3/uL (0.00-0.03); Imm Gran Pct Auto 0.3 % (0.0-0.4); Lymphocytes Absolute Auto 1.1 X10*3/uL (1.2-4.9); Mean Corpuscular HGB Conc 33.0 g/dl (31.0-36.0); Mean Corpuscular Hemoglobin 28.0 pg (27.0-33.0); Mean Corpuscular Volume 84.6 fL (80.0-98.0); NRBC Abs Auto 0.000 X10*3/uL (0.0-0.012); NRBC Pct Auto 0.0 /100WBC (0.0-0.2); Platelet Count 232 X10*3/uL (160-400); Red Blood Count 5.40 X10*6/uL (4.60-5.80); White Blood Count 12.3 X10*3/uL (4.8-10.8)
[2024-11-29 07:44] LABS: Anion Gap 16 (12-20); Blood Urea Nitrogen 17 mg/dL (9-16); Calcium 9.5 mg/dL (8.4-10.2); Carbon Dioxide 23 mmol/L (22-29); Chloride 105 mmol/L (96-108); Potassium 4.2 mmol/L (3.3-5.1); Sodium 140 mmol/L (135-145)
--- NOTE | 2024-11-29 08:13 | HO.PM.IMPN ---
Subjective Subjective Date of Service: 11/29/24 Interval History: Surgery consulted-he will undergo I and D of the bulla Patient had a fever overnight, we will continue IV fluids and IV antibiotics This interview was conducted with the help of automobile upholstery trim installer with his mom Review of Systems Review of Systems: Yes all other systems are reviewed and are negative Physical Exam Exam: Exam: Vital Signs: Vital Signs: Last Vital Signs Temp 97.3 F 11/29/24 07:24 Pulse 93 11/29/24 07:24 Resp 18 11/29/24 07:24 BP 134/85 11/29/24 07:24 Pulse Ox 98 11/29/24 07:24 O2 Del Method Nasal Cannula 11/29/24 07:24 O2 Flow Rate 2 11/29/24 07:24 BMI result Body Mass Index 42.3 Objective Data Active Medications Acetaminophen (Acetaminophen 325 Mg Tablet) 650 mg PO Q6H PRN PRN Reason: Pain, Mild 1-3,fever,headache Last Admin: 11/29/24 02:38 Dose: 650 mg Documented By: JIMMY Albuterol Sulfate (Albuterol Sulfate 90 Mcg 8 Gm Inhaler) 2 puff INHALE Q4H PRN PRN Reason: Wheezing Calcium Carbonate (Calcium Carbonate 750 Mg Tab.Chew) 750 mg PO Q4H PRN PRN Reason: Heartburn Ceftriaxone Sodium (Ceftriaxone Sodium 1 Gm Vial) 1 gm IVPUSH Q24H [facility] Last Admin: 11/28/24 18:11 Dose: 1 gm Documented By: GEORGIANA Fluticasone Propionate (Fluticasone Propionate 250 Mcg Blst.W.Dev) 1 puff INHALE RBID [facility] Last Admin: 11/29/24 07:46 Dose: Not Given Documented By: ALEX Non-Admin Reason: Patient Refused Vancomycin HCl 1,250 mg/ (Sodium Chloride) 250 mls @ 166.667 mls/hr IV Q12H [facility] Last Admin: 11/29/24 06:18 Dose: 166.67 mls/hr Documented By: JIMMY Lorazepam (Lorazepam 0.5 Mg Tablet) 0.5 mg PO BEDTIME PRN PRN Reason: Anxiety Losartan Potassium (Losartan Potassium 25 Mg Tablet) 25 mg PO DAILY ALEXEY; Protocol Magnesium Hydroxide (Milk Of Magnesia 30 Ml Oral.Susp) 30 ml PO DAILY PRN PRN Reason: Constipation Pharmacy Consult (Consult Rx Vancomycin Dosing) 1 each MISCELLANE DAILY PRN PRN Reason: Consult order Prochlorperazine Edisylate (Prochlorperazine Edisylate 10 Mg/2 Ml Vial) 5 mg IVPUSH Q4H PRN PRN Reason: Nausea and Vomiting Last Admin: 11/29/24 02:01 Dose: 5 mg Documented By: FRANCIS Quetiapine Fumarate (Quetiapine Fumarate 50 Mg Tablet) 50 mg PO BEDTIME [facility] Last Admin: 11/28/24 21:00 Dose: Not Given Documented By: RIGOBERTO Non-Admin Reason: Patient Refused Sertraline HCl (Sertraline Hcl 50 Mg Tablet) 50 mg PO DAILY [facility] Sodium Chloride (0.9 % Sodium Chloride Flush 3 Ml Syringe) 3 ml IVFLUSH QSHIFT [facility] Last Admin: 11/29/24 02:01 Dose: 3 ml Documented By: FRANCIS Zolpidem Tartrate (Zolpidem Tartrate 5 Mg Tablet) 5 mg PO DAILY PRN PRN Reason: Insomnia Labs 11/29/24 06:13 11/29/24 06:13 Labs: Laboratory Results - last 24 hr 11/28/24 11/28/24 11/29/24 13:38 15:28 06:13 MCV 84.8 84.6 MCH 28.3 28.0 MCHC 33.3 33.0 RDW 13.2 13.3 Plt Count 223 232 MPV 10.3 10.6 Immature Gran % (Auto) 0.4 0.3 Neut % (Auto) 76.3 H 84.3 H Lymph % (Auto) 16.6 L 9.0 L [place] % (Auto) 5.7 5.8 Eos % (Auto) 0.4 0.1 Baso % (Auto) 0.6 0.5 Lymph # (Auto) 1.9 1.1 L [place] # (Auto) 0.6 0.7 Eos # (Auto) 0.0 0.0 Baso # (Auto) 0.1 0.1 Abs Immat Gran (auto) 0.04 H 0.04 H Absolute Neuts (auto) 8.6 H 10.4 H Absolute Nucleated RBC 0.000 0.000 Nucleated RBC % (auto) 0.0 0.0 ESR 32 H Anion Gap 12 16 Estim Creat Clear Calc 16.7 Estimated GFR > 60 Random Glucose 107 125 H Lactic Acid 1.2 Uric Acid 6.3 Calcium 9.5 9.5 Total Bilirubin 0.5 AST 17 ALT 23 Alkaline Phosphatase 68 C-Reactive Protein 10.97 H Total Protein 7.4 Albumin 4.7 Assessment and Plan (1) Cellulitis: Status: Acute Assessment and Plan: This is a 29 year old male with history of intellectual delay/autism, hypertension, lactose intolerance who presents to the emergency room with worsening left foot pain and redness after being diagnosed with cellulitis on November 25, failed outpatient antibiotics with Keflex. Patient being admitted for IV antibiotic management and surgical management of left foot tense poorly, status post unclear trauma (patient has intellectual disability unable to vocalize. Left foot cellulitis with abscess, Left foot cellulitis with abscess failed outpatient therapy with po keflex Continue IV ceftriaxone, Vancomycin general surgery consult -likely will undergo another I and D today follow blood culture results and sepsis workup Mood continue baseline meds HTN continue losartan ROSHAN multiple positive sleep studies unclear if pt has received CPAP machine will order while inpatient asthma, unspecified no acute exacerbation continue baseline inhalers Morbid obesity BMI 42.3 weight loss would be helpful for ROSHAN and asthma dvt ppx - early ambulation, mechanical devices code status - full code Patient needs ongoing admission for at least 1-2 more days for resolution of sepsis/IV antibiotics and surgical management This note is constructed using voice recognition software. While every effort has been made to ensure accuracy, ethernet network architect errors may have been included. Quality Stroke Does the patient have a stroke diagnosis?: No VTE Prior VTE?: No VTE Risk Level:: Medical - low VTE Device Contraindication: Treatment Not Indicated VTE Drug Contraindication: Treatment Not Indicated
[2024-11-29 08:22] LABS: Creatinine Clr Calc Pharmacy 70.2; Estimated Glomerular Filt Rate 46
[2024-11-29 09:34] LABS: Hemoglobin A1C 153.4877 umol/L; Total Hemoglobin (HGBA1C) 3703.0148 umol/L
[2024-11-29 10:59] LABS: Thyroid Stimulating Hormone 2.06 uIU/mL (0.32-4.0)
--- NOTE | 2024-11-29 12:26 | PM.CNGS ---
History of Present Illness Consult details Consult date: 11/29/24 Requesting physician: Rowan Waters Narrative: 29-year-old male patient with a history of intellectual disability/autism presenting with pain and redness in the left foot. He was initially treated with Keflex however returned to the emergency department with an apparent blister on the base of the 5th toe. The patient reports pain associated with this blister and surrounding skin redness. There has been no history of trauma to the left foot. The patient is admitted to the hospitalist service for IV antibiotics. Surgical consultation was requested for possible incision and drainage. He is currently on ceftriaxone and vancomycin. Laboratories reveal a WBC of 12.3. X-ray of the left foot revealed no fracture, dislocation or osteomyelitis. Review of Systems Review of Systems: Yes Unobtainable due to mental status PMFSH Past Medical History Medical History ROSHAN (obstructive sleep apnea) Intellectual disability Asthma Seizure Family History Family History Father Diabetes Mother Diabetes Arthritis Depression Surgical History Surgical History History of hernia surgery Social History Social History Alcohol intake: never Patient Tobacco Use Status: Never used Tobacco Smoked in Last 30 Days: No Use of substances other than those prescribed or required for medical reasons: No Currently Displaying Signs/Symptoms of Drug Intoxication Withdrawal: No Advance Directives: No Advance Directives Information Provided: Yes Nutrition Risks: No Nutritional Risk Meds Allergies Allergy/AdvReac Type Severity Reaction Status Date / Time No Known Allergies Allergy Verified 11/28/24 13:27 lactose intolerance Allergy Unknown Unknown Uncoded 11/25/24 11:39 Active Medications: Current Medications Acetaminophen (Acetaminophen 325 Mg Tablet) 650 mg PO Q6H PRN PRN Reason: Pain, Mild 1-3,fever,headache Last Admin: 11/29/24 02:38 Dose: 650 mg Albuterol Sulfate (Albuterol Sulfate 90 Mcg 8 Gm Inhaler) 2 puff INHALE Q4H PRN PRN Reason: Wheezing Calcium Carbonate (Calcium Carbonate 750 Mg Tab.Chew) 750 mg PO Q4H PRN PRN Reason: Heartburn Ceftriaxone Sodium (Ceftriaxone Sodium 1 Gm Vial) 1 gm IVPUSH Q24H [facility] Last Admin: 11/28/24 18:11 Dose: 1 gm Fluticasone Propionate (Fluticasone Propionate 250 Mcg Blst.W.Dev) 1 puff INHALE RBID [facility] Last Admin: 11/29/24 07:46 Dose: Not Given Vancomycin HCl 1,250 mg/ (Sodium Chloride) 250 mls @ 166.667 mls/hr IV Q12H [facility] Last Infusion: 11/29/24 08:27 Dose: Infused Lorazepam (Lorazepam 0.5 Mg Tablet) 0.5 mg PO BEDTIME PRN PRN Reason: Anxiety Losartan Potassium (Losartan Potassium 25 Mg Tablet) 25 mg PO DAILY [facility]; Protocol Last Admin: 11/29/24 08:18 Dose: 25 mg Magnesium Hydroxide (Milk Of Magnesia 30 Ml Oral.Susp) 30 ml PO DAILY PRN PRN Reason: Constipation Pharmacy Consult (Consult Rx Vancomycin Dosing) 1 each MISCELLANE DAILY PRN PRN Reason: Consult order Prochlorperazine Edisylate (Prochlorperazine Edisylate 10 Mg/2 Ml Vial) 5 mg IVPUSH Q4H PRN PRN Reason: Nausea and Vomiting Last Admin: 11/29/24 02:01 Dose: 5 mg Quetiapine Fumarate (Quetiapine Fumarate 50 Mg Tablet) 50 mg PO BEDTIME [facility] Last Admin: 11/28/24 21:00 Dose: Not Given Sertraline HCl (Sertraline Hcl 50 Mg Tablet) 50 mg PO DAILY [facility] Last Admin: 11/29/24 08:18 Dose: 50 mg Sodium Chloride (0.9 % Sodium Chloride Flush 3 Ml Syringe) 3 ml IVFLUSH QSHIFT [facility] Last Admin: 11/29/24 08:18 Dose: 3 ml Zolpidem Tartrate (Zolpidem Tartrate 5 Mg Tablet) 5 mg PO DAILY PRN PRN Reason: Insomnia Home Medications ?Medication ?Instructions ?Recorded ?Confirmed ?Last Taken ?Type albuterol sulfate 90 mcg/actuation 2 puff inhalation Q4H PRN wheezing 04/30/23 11/28/24 Unknown History aerosol inhaler (Ventolin HFA) lorazepam 0.5 mg tablet 0.5 mg PO BEDTIME PRN anxiety 04/30/23 11/28/24 Unknown History losartan 25 mg tablet 25 mg PO QAM 04/30/23 11/28/24 Unknown History mometasone 200 mcg/actuation HFA 1 puff inhalation BID 04/30/23 11/28/24 Unknown History aerosol inhaler (Asmanex HFA) quetiapine 50 mg tablet 50 mg PO BEDTIME 04/30/23 11/28/24 Unknown History zolpidem 10 mg tablet 10 mg PO DAILY PRN Insomnia 04/30/23 11/28/24 Unknown History sertraline 50 mg tablet 50 mg PO QAM 12/17/23 11/28/24 Unknown History cetirizine 10 mg tablet 10 mg PO DAILY PRN Allergic 11/28/24 11/28/24 Unknown History Symptoms Physical Exam Vital Signs: Vital Signs: Last Vital Signs Temp 97.4 F 11/29/24 11:18 Pulse 90 11/29/24 11:18 Resp 18 11/29/24 11:18 BP 126/83 11/29/24 11:18 Pulse Ox 96 11/29/24 11:18 O2 Del Method Nasal Cannula 11/29/24 11:18 O2 Flow Rate 2 11/29/24 11:18 BMI result Body Mass Index 42.3 Const: General: no acute distress and lethargic Nutritional Appearance: well nourished Orientation/consciousness: lethargic HEENT: Head: Yes normocephalic and Yes atraumatic Resp: Effort & Inspection: normal respiratory effort, no audible wheezes, no cough and no respiratory distress GI: Inspection: Yes normal to inspection Extrem: Other: Left great toe with a 2 cm raised blister over the anterior surface of the 5th toe. There is a surrounding area of erythema extending to the midfoot but not noted on the dorsum. There is tenderness to palpation but no fluctuance other than in the blister. Ankle/foot/toe images:  1. Site of blister left foot Results Labs 11/29/24 06:13 11/29/24 06:13 Labs: Abnormal lab results 11/28/24 11/29/24 Range/Units 13:38 06:13 WBC 11.3 H 12.3 H (4.8-10.8) X10*3/uL Neut % (Auto) 76.3 H 84.3 H (45-73) % Lymph % (Auto) 16.6 L 9.0 L (20-40) % Lymph # (Auto) 1.1 L (1.2-4.9) X10*3/uL Abs Immat Gran (auto) 0.04 H 0.04 H (0.00-0.03) X10*3/uL Absolute Neuts (auto) 8.6 H 10.4 H (2.0-8.3) x10*3/uL ESR 32 H (0-15) MM/HR BUN 8 L 17 H (9-16) mg/dL Creatinine 1.73 H (0.5-1.4) mg/dL Random Glucose 125 H (60-115) mg/dL C-Reactive Protein 10.97 H (< or = 0.50) mg/dL Short CBC 11/28/24 11/29/24 Range/Units 13:38 06:13 WBC 11.3 H 12.3 H (4.8-10.8) X10*3/uL Hgb 16.2 15.1 (14.0-18.0) g/dl Hct 48.6 45.7 (42.0-52.0) % Plt Count 223 232 (160-400) X10*3/uL BMP 11/28/24 11/29/24 13:38 06:13 Sodium 139 140 Potassium 4.0 4.2 Chloride 106 105 Carbon Dioxide 25 23 BUN 8 L 17 H Creatinine 0.90 1.73 H Calcium 9.5 9.5 Liver Function 11/28/24 Range/Units 13:38 Total Bilirubin 0.5 (0.0-1.0) mg/dL AST 17 (5-37) U/L ALT 23 (0-40) U/L Alkaline Phosphatase 68 (39-117) U/L Albumin 4.7 (3.5-5.0) g/dL All other labs normal. Assessment and Plan (1) Cellulitis: Status: Acute (2) Foot pain, left: Status: Acute Plan 29-year-old male patient presenting with left foot cellulitis with blister overlying the 5th toe. This appears to be possibly posttraumatic although it is difficult to tell any trauma history. No fracture or osteomyelitis is noted is noted on the foot x-ray. I recommended drainage of this left foot blister which will be performed at the bedside. This has discussed with the mother and she consented to the procedure. Procedures Date of Service Date of Service: 11/29/24 Abscess I/D Consent for Procedure: Emergent-no informed consent obtained Site: foot Side (if applicable): left Sedation/analgesia: none Technique: other (Incised with the scissors) Amount of fluid (mL): 5 Irrigation: No Packing used?: none Additional comments: No complications. Wounds dressed with 4 x 4 and 4 in [place].
[2024-11-29] MEDS: Fluticasone Propionate 250 MCG BLST.W.DEV 1 PUFF INHALE (20:12)
[2024-11-30] VITALS (9 sets, daily range): BP systolic 128–154; BP diastolic 76–94; PULSE 88–97; RESP 16–18; TEMP 36.4–36.8; O2SAT 94–97
[2024-11-30] MEDS: 0.9 % Sodium Chloride Flush 3 ML SYRINGE IVFLUSH ×3 (06:15→22:53)
[2024-11-30 07:35] LABS: Creatinine Clr Calc Pharmacy 56.4; Estimated Glomerular Filt Rate 36
[2024-11-30] MEDS: Fluticasone Propionate 250 MCG BLST.W.DEV 1 PUFF INHALE ×2 (08:27→20:09)
[2024-11-30 12:36] LABS: Appearance Urine Clear; Glucose Urine UA Negative (Negative); PH 6.0 (5.0-9.0); Specific Gravity - Urine 1.010 (1.005-1.025)
--- NOTE | 2024-11-30 13:05 | MHC.CM.PN ---
CM MET WITH PT AND FAMILY WITH THE ASSISTANCE OF A [facility] [employer] WORKER PT LIVES WITH HIS MOTHER WHO ASSISTS IN HIS CARE, HE ALSO HAS [employer] DAILY HE HAS A SHOWER CHAIR FOR DME COPY OF HCP REQUESTED PCP: KAITLIN OTTO DCP: HOME, RESUME [employer] AND FAMILY SUPPORT FAMILY TO TRANSPORT
--- NOTE | 2024-11-30 13:10 | P.PNIM_ITS ---
Subjective Subjective Date of Service: 11/30/24 Interval History: Seen and evaluated this morning reports pain in left foot post I&D Cr increasing , still making urine No other overnight events Review of Systems Review of Systems: Yes all other systems are reviewed and are negative Physical Exam 2 Vital Signs: Vital Signs: Last Vital Signs Temp 98.2 F 11/30/24 11:32 Pulse 93 11/30/24 11:32 Resp 18 11/30/24 11:32 BP 154/86 H 11/30/24 11:32 Pulse Ox 94 11/30/24 11:32 O2 Del Method Room Air 11/30/24 11:32 O2 Flow Rate 2 11/30/24 07:56 BMI result Body Mass Index 42.3 Const: Other: Constitutional : interactive, not in distress Cardiovascular : no JVP, no lower extremity edema Respiratory : bilateral chest movement, not in resp distress Gastrointestinal: soft, lax, Non tender Skin : Warm, Dry, LLE foot wound covered with dressing but has erythema on dorsal side of foot Neurological : Alert & oriented , No focal deficit Objective Data Active Medications Acetaminophen (Acetaminophen 325 Mg Tablet) 650 mg PO Q6H PRN PRN Reason: Pain, Mild 1-3,fever,headache Last Admin: 11/30/24 12:26 Dose: 650 mg Documented By: PAYTON Albuterol Sulfate (Albuterol Sulfate 90 Mcg 8 Gm Inhaler) 2 puff INHALE Q4H PRN PRN Reason: Wheezing Calcium Carbonate (Calcium Carbonate 750 Mg Tab.Chew) 750 mg PO Q4H PRN PRN Reason: Heartburn Ceftriaxone Sodium (Ceftriaxone Sodium 1 Gm Vial) 1 gm IVPUSH Q24H [facility] Last Admin: 11/29/24 16:54 Dose: 1 gm Documented By: PAYTON Fluticasone Propionate (Fluticasone Propionate 250 Mcg Blst.W.Dev) 1 puff INHALE RBID [facility] Last Admin: 11/30/24 08:27 Dose: 1 puff Documented By: ALEX Vancomycin HCl 750 mg/ Sodium (Chloride) 265 mls @ 265 mls/hr IV Q12H [facility] Last Infusion: 11/30/24 07:39 Dose: Infused Documented By: PAYTON Lorazepam (Lorazepam 0.5 Mg Tablet) 0.5 mg PO BEDTIME PRN PRN Reason: Anxiety Losartan Potassium (Losartan Potassium 25 Mg Tablet) 25 mg PO DAILY [facility]; Protocol On Hold: 11/30/24 08:12 Last Admin: 11/29/24 08:18 Dose: 25 mg Documented By: PAYTON Magnesium Hydroxide (Milk Of Magnesia 30 Ml Oral.Susp) 30 ml PO DAILY PRN PRN Reason: Constipation Pharmacy Consult (Consult Rx Vancomycin Dosing) 1 each MISCELLANE DAILY PRN PRN Reason: Consult order Prochlorperazine Edisylate (Prochlorperazine Edisylate 10 Mg/2 Ml Vial) 5 mg IVPUSH Q4H PRN PRN Reason: Nausea and Vomiting Last Admin: 11/29/24 02:01 Dose: 5 mg Documented By: ANTMARIE Quetiapine Fumarate (Quetiapine Fumarate 50 Mg Tablet) 50 mg PO BEDTIME [facility] Last Admin: 11/29/24 23:36 Dose: Not Given Documented By: JIMMY Non-Admin Reason: Patient Refused Sertraline HCl (Sertraline Hcl 50 Mg Tablet) 50 mg PO DAILY [facility] Last Admin: 11/30/24 09:41 Dose: 50 mg Documented By: PAYTON Sodium Chloride (0.9 % Sodium Chloride Flush 3 Ml Syringe) 3 ml IVFLUSH QSHIFT [facility] Last Admin: 11/30/24 09:41 Dose: Not Given Documented By: PAYTON Non-Admin Reason: No Access Zolpidem Tartrate (Zolpidem Tartrate 5 Mg Tablet) 5 mg PO DAILY PRN PRN Reason: Insomnia Labs 11/29/24 06:13 11/30/24 06:39 Labs: Laboratory Results - last 24 hr 11/29/24 11/30/24 11/30/24 15:47 06:39 12:21 Estim Creat Clear Calc 56.4 Estimated GFR 36 Urine Color Yellow Urine Appearance Clear Urine pH 6.0 Ur Specific [place] 1.010 Urine Protein Negative Urine Glucose (UA) Negative Urine Ketones Negative Urine Blood Negative Urine Nitrite Negative Ur Leukocyte Esterase Negative Random Vancomycin 17.3 Microbiology Microbiology Results: Microbiology 11/28/24 15:28 Blood Culture - Preliminary Blood - Venous No growth after 24 hours. 11/28/24 15:28 Blood Culture - Preliminary Blood - Venous No growth after 24 hours. Assessment and Plan (1) Cellulitis: Status: Acute Assessment and Plan: This is a 29 year old male with history of intellectual delay/autism, hypertension, lactose intolerance who presents to the emergency room with worsening left foot pain and redness after being diagnosed with cellulitis on November 25, failed outpatient antibiotics with Keflex. Patient being admitted for IV antibiotic management and surgical management of left foot tense poorly, status post unclear trauma (patient has intellectual disability unable to vocalize. Left foot cellulitis with abscess failed outpatient therapy with po keflex Continue IV ceftriaxone, Vancomycin general surgery consult - bedside I and D done follow blood culture TAYLOR Cr from 0.9 at baseline to 2.15 No contrasted studies, no clear incident of low BP check urine studies watch I\O Nephrology consult follow BMP Diarrhea PEnding stool panel could be 2/2 antibiotics Mood continue baseline meds HTN Hold losartan is TAYLOR ROSHAN multiple positive sleep studies has CPAP machine not using all the time will order while inpatient asthma, unspecified no acute exacerbation continue baseline inhalers Morbid obesity BMI 42.3 weight loss would be helpful for ROSHAN and asthma dvt ppx - early ambulation, mechanical devices code status - full code Patient needs ongoing admission overnight for resolution of TAYLOR pending nephrology evaluation and sepsis/IV antibiotics and surgical management (2) Acute kidney injury: Status: Acute (3) Obstructive sleep apnea: Status: Acute Quality Stroke Does the patient have a stroke diagnosis?: No VTE Prior VTE?: No VTE Risk Level:: Medical - low VTE Device Contraindication: Treatment Not Indicated VTE Drug Contraindication: Treatment Not Indicated
[2024-12-01] VITALS (7 sets, daily range): BP systolic 115–145; BP diastolic 63–94; PULSE 71–94; RESP 16–18; TEMP 36.7–37.2; O2SAT 93–95
[2024-12-01] MEDS: Fluticasone Propionate 250 MCG BLST.W.DEV 1 PUFF INHALE ×2 (07:34→20:21)
[2024-12-01 07:56] LABS: MANUAL DIFF FLAG NO
[2024-12-01 08:06] LABS: Hematocrit 44.1 % (42.0-52.0); Hemoglobin 14.3 g/dl (14.0-18.0); Imm Gran Abs Auto 0.05 X10*3/uL (0.00-0.03); Imm Gran Pct Auto 0.4 % (0.0-0.4); Lymphocytes Absolute Auto 1.5 X10*3/uL (1.2-4.9); Mean Corpuscular HGB Conc 32.4 g/dl (31.0-36.0); Mean Corpuscular Hemoglobin 27.8 pg (27.0-33.0); Mean Corpuscular Volume 85.6 fL (80.0-98.0); NRBC Abs Auto 0.000 X10*3/uL (0.0-0.012); NRBC Pct Auto 0.0 /100WBC (0.0-0.2); Platelet Count 270 X10*3/uL (160-400); Red Blood Count 5.15 X10*6/uL (4.60-5.80); White Blood Count 11.7 X10*3/uL (4.8-10.8)
[2024-12-01 08:13] LABS: Anion Gap 15 (12-20); Blood Urea Nitrogen 17 mg/dL (9-16); Calcium 9.5 mg/dL (8.4-10.2); Carbon Dioxide 23 mmol/L (22-29); Chloride 104 mmol/L (96-108); Creatinine Clr Calc Pharmacy 53.7; Creatinine Clr Calc Pharmacy 55.2; Estimated Glomerular Filt Rate 34; Estimated Glomerular Filt Rate 35; Potassium 4.0 mmol/L (3.3-5.1); Sodium 138 mmol/L (135-145)
[2024-12-01] MEDS: 0.9 % Sodium Chloride Flush 3 ML SYRINGE IVFLUSH ×2 (08:52→15:39)
[2024-12-01 09:05] LABS: E. coli EAEC Not Detected (Not Detect.); E. coli EPEC Not Detected (Not Detect.); E. coli ETEC Not Detected (Not Detect.); E. coli STEC Not Detected (Not Detect.); Shigella sp./EIEC Not Detected (Not Detect.)
--- NOTE | 2024-12-01 10:20 | HE.PHANOTE ---
RE: VANCO DOSING No dose was given on 11/30/24 due to worsening renal function and trough on 11/30/24 @1600 being 16.9 mg/L. Trough on 12/01/24 @0933 was 8.3 mg/L, renal function is somewhat stable. Restart dose 1000 mg q24h @1100 12/01/24, next trough is scheduled for 12/02/24 @0900.
--- NOTE | 2024-12-01 14:59 | HO.PM.IMPN ---
Subjective Subjective Date of Service: 12/01/24 Interval History: Family reports pt has been experiencing nausea, vomiting, diarrhea, and lower abdominal pain Has been having very little p.o. intake Family reports abdomen appears swollen Pt himself is unable to provide significant hx or HPI Review of Systems Review of Systems: Yes Unobtainable due to mental status Physical Exam Exam: Exam: General: Alert, no acute distress Resp: CTA bilaterally CVS: S1, S2, RRR GI: +BS, NT, no distention Skin: Warm, dry Neuro: Cranial nerves II-XII grossly intact bilaterally. Motor grossly intact bilaterally Extremities: No edema. Left lower extremity wound covered in clean and dry dressing. Minimal surrounding erythema Psych: Calm, cooperative Vital Signs: Vital Signs: Last Vital Signs Temp 98.2 F 12/01/24 11:59 Pulse 90 12/01/24 11:59 Resp 18 12/01/24 11:59 BP 126/81 12/01/24 11:59 Pulse Ox 94 12/01/24 11:59 O2 Del Method Room Air 12/01/24 11:59 O2 Flow Rate 3 12/01/24 07:26 BMI result Body Mass Index 42.3 Objective Data Active Medications Acetaminophen (Acetaminophen 325 Mg Tablet) 650 mg PO Q6H PRN PRN Reason: Pain, Mild 1-3,fever,headache Last Admin: 11/30/24 12:26 Dose: 650 mg Documented By: PAYTON Albuterol Sulfate (Albuterol Sulfate 90 Mcg 8 Gm Inhaler) 2 puff INHALE Q4H PRN PRN Reason: Wheezing Calcium Carbonate (Calcium Carbonate 750 Mg Tab.Chew) 750 mg PO Q4H PRN PRN Reason: Heartburn Ceftriaxone Sodium (Ceftriaxone Sodium 1 Gm Vial) 1 gm IVPUSH Q24H [facility] Last Admin: 11/30/24 16:55 Dose: 1 gm Documented By: PAYTON Fluticasone Propionate (Fluticasone Propionate 250 Mcg Blst.W.Dev) 1 puff INHALE RBID [facility] Last Admin: 12/01/24 07:34 Dose: 1 puff Documented By: SAMANTHA Vancomycin HCl 1,000 mg/ (Sodium Chloride) 270 mls @ 270 mls/hr IV Q24H [facility] Last Infusion: 12/01/24 13:21 Dose: Infused Documented By: PAYTON Lorazepam (Lorazepam 0.5 Mg Tablet) 0.5 mg PO BEDTIME PRN PRN Reason: Anxiety Losartan Potassium (Losartan Potassium 25 Mg Tablet) 25 mg PO DAILY [facility]; Protocol On Hold: 11/30/24 08:12 Last Admin: 11/29/24 08:18 Dose: 25 mg Documented By: PAYTON Magnesium Hydroxide (Milk Of Magnesia 30 Ml Oral.Susp) 30 ml PO DAILY PRN PRN Reason: Constipation Pharmacy Consult (Consult Rx Vancomycin Dosing) 1 each MISCELLANE DAILY PRN PRN Reason: Consult order Prochlorperazine Edisylate (Prochlorperazine Edisylate 10 Mg/2 Ml Vial) 5 mg IVPUSH Q4H PRN PRN Reason: Nausea and Vomiting Last Admin: 11/29/24 02:01 Dose: 5 mg Documented By: FRANCIS Quetiapine Fumarate (Quetiapine Fumarate 50 Mg Tablet) 50 mg PO BEDTIME [facility] Last Admin: 11/30/24 22:11 Dose: Not Given Documented By: LENORA Non-Admin Reason: Patient Refused Sertraline HCl (Sertraline Hcl 50 Mg Tablet) 50 mg PO DAILY [facility] Last Admin: 12/01/24 08:52 Dose: 50 mg Documented By: PAYTON Sodium Chloride (0.9 % Sodium Chloride Flush 3 Ml Syringe) [facility] Last Admin: 12/01/24 08:52 Dose: 3 ml Documented By: PAYTON Zolpidem Tartrate (Zolpidem Tartrate 5 Mg Tablet) 5 mg PO DAILY PRN PRN Reason: Insomnia Labs 12/01/24 07:22 12/01/24 07:22 Labs: Laboratory Results - last 24 hr 11/30/24 11/30/24 12/01/24 11:05 16:14 07:22 MCV 85.6 MCH 27.8 MCHC 32.4 RDW 13.2 Plt Count 270 MPV 10.2 Immature Gran % (Auto) 0.4 Neut % (Auto) 79.3 H Lymph % (Auto) 13.0 L [place] % (Auto) 6.6 Eos % (Auto) 0.3 Baso % (Auto) 0.4 Lymph # (Auto) 1.5 Harrison # (Auto) 0.8 Eos # (Auto) 0.0 Baso # (Auto) 0.1 Abs Immat Gran (auto) 0.05 H Absolute Neuts (auto) 9.3 H Absolute Nucleated RBC 0.000 Nucleated RBC % (auto) 0.0 Anion Gap 15 Estim Creat Clear Calc 53.7 Estimated GFR Random Glucose Calcium Stl C. cayetanensis PCR Not Detected Stool Rotavirus A PCR Not Detected Stl Adenov F 40/41 PCR Not Detected Stool Astrovirus (PCR) Not Detected Stool Campylobacter PCR Not Detected Stool Cryptosporidium PCR Not Detected Stl Sh Tox Pr E STEC PCR Not Detected Stool E coli O157 PCR Not applicable Stl Enterotoxigenic E PCR Not Detected Stool EPEC (PCR) Not Detected Stool EAEC (PCR) Not Detected Stl E. histolytica PCR Not Detected Stool Giardia Lamblia PCR Not Detected Stl P. shigelloides PCR Not Detected Stool Salmonella PCR Not Detected Stool Sapovirus (PCR) Not Detected Stl Shigella/EIEC PCR Not Detected St Y.enterocolitica PCR Not Detected Stool Vibrio (PCR) Not Detected Stl Vibrio cholerae PCR Not Detected Stl Norovirus GI/GII PCR Not Detected Random Vancomycin 16.9 12/01/24 12/01/24 12/01/24 07:22 07:22 09:33 MCV MCH MCHC RDW Plt Count MPV Immature Gran % (Auto) Neut % (Auto) Lymph % (Auto) Harrison % (Auto) Eos % (Auto) Baso % (Auto) Lymph # (Auto) Harrison # (Auto) Eos # (Auto) Baso # (Auto) Abs Immat Gran (auto) Absolute Neuts (auto) Absolute Nucleated RBC Nucleated RBC % (auto) Anion Gap Estim Creat Clear Calc 55.2 Estimated GFR 34 35 Random Glucose 103 Calcium 9.5 Stl C. cayetanensis PCR Stool Rotavirus A PCR Stl Adenov F 40 PCR Stool Astrovirus (PCR) Stool Campylobacter PCR Stool Cryptosporidium PCR Stl Sh Tox Pr E STEC PCR Stool E coli O157 PCR Stl Enterotoxigenic E PCR Stool EPEC (PCR) Stool EAEC (PCR) Stl E. histolytica PCR Stool Giardia Lamblia PCR Stl P. shigelloides PCR Stool Salmonella PCR Stool Sapovirus (PCR) Stl Shigella/EIEC PCR St Y.enterocolitica PCR Stool Vibrio (PCR) Stl Vibrio cholerae PCR Stl Norovirus GI/GII PCR Random Vancomycin 8.3 L Microbiology Microbiology Results: Microbiology 11/28/24 15:28 Blood Culture - Preliminary Blood - Venous No growth after 48 hours. 11/28/24 15:28 Blood Culture - Preliminary Blood - Venous No growth after 48 hours. Assessment and Plan (1) Acute kidney injury: Status: Acute (2) Cellulitis: Status: Acute Plan This is a 29 year old male with history of intellectual delay/autism, hypertension, lactose intolerance who presents to the emergency room with worsening left foot pain and redness after being diagnosed with cellulitis on November 25, failed outpatient antibiotics with Keflex. Patient being admitted for IV antibiotic management and surgical management of left foot tense poorly, status post unclear trauma (patient has intellectual disability unable to vocalize. Left foot cellulitis with abscess failed outpatient therapy with po keflex Continue IV ceftriaxone, Vancomycin general surgery consult - bedside I and D done follow blood culture TAYLOR Cr from 0.9 at baseline to 2.20 No contrasted studies, no clear incident of low BP Urine negative watch I\O Nephrology, will place on on gentle fluids follow BMP Diarrhea Stool studies and C diff negative could be 2/2 antibiotics CTA of abdomen/pelvis negative for acute findings Mood continue baseline meds HTN Hold losartan is TAYLOR ROSHAN multiple positive sleep studies has CPAP machine not using all the time will order while inpatient asthma, unspecified no acute exacerbation continue baseline inhalers Morbid obesity BMI 42.3 weight loss would be helpful for ROSHAN and asthma dvt ppx - early ambulation, mechanical devices code status - full code Patient needs ongoing admission overnight for resolution of TAYLOR pending nephrology evaluation and sepsis/IV antibiotics and surgical management Quality Stroke Does the patient have a stroke diagnosis?: No VTE Prior VTE?: No VTE Risk Level:: Medical - low VTE Device Contraindication: Treatment Not Indicated VTE Drug Contraindication: Treatment Not Indicated
[2024-12-01] MEDS: Lactated Ringers 1,000 ML 75 ML IVCONT ×2 (15:39→23:25)
[2024-12-01 16:29] LABS: CDiff Gene PCR NEGATIVE (Negative)
[2024-12-01 18:20] LABS: Appearance Urine Clear; Glucose Urine UA Negative (Negative); PH 5.5 (5.0-9.0); Specific Gravity - Urine 1.010 (1.005-1.025); UMIC TRIGGER UA YES
[2024-12-02 03:49] VITALS: BP 148/89; PULSE 79; RESP 16; TEMP 36.7; O2SAT 96
[2024-12-02 05:52] LABS: Anion Gap 13 (12-20); Blood Urea Nitrogen 18 mg/dL (9-16); Calcium 9.1 mg/dL (8.4-10.2); Carbon Dioxide 26 mmol/L (22-29); Chloride 104 mmol/L (96-108); Creatinine Clr Calc Pharmacy 55.2; Estimated Glomerular Filt Rate 35; Potassium 3.9 mmol/L (3.3-5.1); Sodium 139 mmol/L (135-145)
[2024-12-02 07:30] VITALS: BP 156/80; PULSE 88; RESP 18; TEMP 36.6; O2SAT 96
[2024-12-02] MEDS: Fluticasone Propionate 250 MCG BLST.W.DEV 1 PUFF INHALE ×2 (07:36→19:53)
[2024-12-02 07:38] VITALS: PULSE 88; RESP 18; O2SAT 98
[2024-12-02 08:54] LABS: EOS Counted 0 CELLS; EOS QC POS YES; EOS Stain Quality OK YES; WBC, Counted 0 CELLS
--- NOTE | 2024-12-02 10:26 | PM.CNNEP ---
History of Present Illness Reason for Consult Consult date: 12/02/24 Chief Complaint Chief complaint: cellulitis w/ abscess History of Present Illness Narrative: 29-year-old male with past medical history of autism spectrum disorder, hypertension, obstructive sleep apnea, restless leg syndrome is admitted to the hospital due to pain in the left foot leading to cellulitis. He is treated with ceftriaxone and vancomycin, vancomycin levels within range. He has poor appetite but has been drinking adequate water. His losartan has been withheld. His baseline creatinine is 0.9 on admission, increased to 1.73 on 11/29 now peaked to 2.2. Urinalysis clean. CT abdomen and pelvis showing normal size kidneys, no obstruction. Review of Systems Review of Systems Const : no body aches, no chills, no excessive sweating and no fatigue Eyes: no blurry vision and no change in vision ENT: no bleeding gums and no change in voice, no dizziness Card: no chest pain, no shortness of breath, no orthopnea, no PND Resp: no cough, no excessive phlegm production, no SOB GI: no abdominal pain and + nausea, no vomiting : no hematuria, no urinary frequency and no difficulty voiding Musc: no abnormal gait, no bone pain Neuro: no abnormal movements, no weakness, no dizziness, no abnormal gait and no behavioral changes Psych: no behavioral changes and no change in appetite Endo: no change in body appearance, no cold intolerance, no excessive sweating and no fatigue PMFSH Past Medical History Medical History ROSHAN (obstructive sleep apnea) Intellectual disability Asthma Seizure Family History Family History Father Diabetes Mother Diabetes Arthritis Depression Surgical History Surgical History History of hernia surgery Social History Social History Household Members: Family Housing: Apartment Alcohol intake: never Comment: pt family assisting with ambulation Patient Tobacco Use Status: Never used Tobacco Smoked in Last 30 Days: No Use of substances other than those prescribed or required for medical reasons: No Currently Displaying Signs/Symptoms of Drug Intoxication Withdrawal: No Have you been hit, kicked, punched, or otherwise hurt by someone within the past year? If so, by whom?: No Do you feel safe in your current relationship?: Yes Is there a partner from a previous relationship who is making you feel unsafe now?: No Are you made to feel afraid or neglected: No Advance Directives: No Advance Directives Information Provided: Yes Do you have a plan to hurt others: No Plan Recently lost weight without trying: No Nutrition Risks: No Nutritional Risk Poor oral hygiene: No service: No Meds Allergies Allergy/AdvReac Type Severity Reaction Status Date / Time No Known Allergies Allergy Verified 11/28/24 13:27 lactose intolerance Allergy Unknown Unknown Uncoded 11/25/24 11:39 Active Medications: Current Medications Acetaminophen (Acetaminophen 325 Mg Tablet) 650 mg PO Q6H PRN PRN Reason: Pain, Mild 1-3,fever,headache Last Admin: 11/30/24 12:26 Dose: 650 mg Albuterol Sulfate (Albuterol Sulfate 90 Mcg 8 Gm Inhaler) 2 puff INHALE Q4H PRN PRN Reason: Wheezing Calcium Carbonate (Calcium Carbonate 750 Mg Tab.Chew) 750 mg PO Q4H PRN PRN Reason: Heartburn Ceftriaxone Sodium (Ceftriaxone Sodium 1 Gm Vial) 1 gm IVPUSH Q24H [facility] Last Admin: 12/01/24 18:00 Dose: 1 gm Doxycycline Monohydrate (Doxycycline Monohydrate 100 Mg Capsule) 100 mg PO Q12H [facility] Last Admin: 12/02/24 08:35 Dose: 100 mg Fluticasone Propionate (Fluticasone Propionate 250 Mcg Blst.W.Dev) 1 puff INHALE RBID [facility] Last Admin: 12/02/24 07:36 Dose: 1 puff Lactated Ringer's (Lr) 1,000 mls @ 75 mls/hr IVCONT .[id number] [facility] Last Admin: 12/01/24 23:25 Dose: 75 mls/hr Lorazepam (Lorazepam 0.5 Mg Tablet) 0.5 mg PO BEDTIME PRN PRN Reason: Anxiety Losartan Potassium (Losartan Potassium 25 Mg Tablet) 25 mg PO DAILY [facility]; Protocol On Hold: 11/30/24 08:12 Last Admin: 11/29/24 08:18 Dose: 25 mg Magnesium Hydroxide (Milk Of Magnesia 30 Ml Oral.Susp) 30 ml PO DAILY PRN PRN Reason: Constipation Prochlorperazine Edisylate (Prochlorperazine Edisylate 10 Mg/2 Ml Vial) 5 mg IVPUSH Q4H PRN PRN Reason: Nausea and Vomiting Last Admin: 11/29/24 02:01 Dose: 5 mg Quetiapine Fumarate (Quetiapine Fumarate 50 Mg Tablet) 50 mg PO BEDTIME [facility] Last Admin: 12/01/24 21:07 Dose: Not Given Sertraline HCl (Sertraline Hcl 50 Mg Tablet) 50 mg PO DAILY [facility] Last Admin: 12/02/24 08:35 Dose: 50 mg Sodium Chloride (0.9 % Sodium Chloride Flush 3 Ml Syringe) 3 ml IVFLUSH QSHIFT [facility] Last Admin: 12/02/24 08:35 Dose: Not Given Zolpidem Tartrate (Zolpidem Tartrate 5 Mg Tablet) 5 mg PO DAILY PRN PRN Reason: Insomnia Home Medications ?Medication ?Instructions ?Recorded ?Confirmed ?Last Taken ?Type albuterol sulfate 90 mcg/actuation 2 puff inhalation Q4H PRN wheezing 04/30/23 11/28/24 Unknown History aerosol inhaler (Ventolin HFA) lorazepam 0.5 mg tablet 0.5 mg PO BEDTIME PRN anxiety 04/30/23 11/28/24 Unknown History losartan 25 mg tablet 25 mg PO QAM 04/30/23 11/28/24 Unknown History mometasone 200 mcg/actuation HFA 1 puff inhalation BID 04/30/23 11/28/24 Unknown History aerosol inhaler (Asmanex HFA) quetiapine 50 mg tablet 50 mg PO BEDTIME 04/30/23 11/28/24 Unknown History zolpidem 10 mg tablet 10 mg PO DAILY PRN Insomnia 04/30/23 11/28/24 Unknown History sertraline 50 mg tablet 50 mg PO QAM 12/17/23 11/28/24 Unknown History cetirizine 10 mg tablet 10 mg PO DAILY PRN Allergic 11/28/24 11/28/24 Unknown History Symptoms Physical Exam Vital Signs: Last Vital Signs Temp 97.8 F 12/02/24 07:30 Pulse 88 12/02/24 07:38 Resp 18 12/02/24 07:38 BP 156/80 H 12/02/24 07:30 Pulse Ox 96 12/02/24 07:30 O2 Del Method Room Air 12/02/24 07:30 O2 Flow Rate 3 12/01/24 07:26 BMI result Body Mass Index 42.3 General: not in any acute distress, ill appearing Nutritional Appearance: well nourished and obese Eyes: appearance normal, both eyes and all related structures Neck: No lymphadenopathy, no thyromegaly Resp: bilateral air entry equal, no added sounds present Cardio: Regular rate, regular rhythm; Heart sounds: S1 normal heart sound present and S2 normal heart sound present GI: soft, nontender, no guarding, no hepatosplenomegaly : bladder normal to inspection, bladder normal to palpation, no renal angle tenderness Skin: no rashes or lesions noted and elasticity normal Neuro: alert, oriented x 3, moves all extremities Results Lab Results 12/01/24 07:22 12/02/24 05:12 Lab results: Chemistry 11/30/24 12/01/24 12/01/24 06:39 07:22 07:22 Sodium 138 Potassium 4.0 Carbon Dioxide 23 BUN 17 H Creatinine 2.15 H 2.26 H 2.20 H Calcium 9.5 12/02/24 05:12 Sodium 139 Potassium 3.9 Carbon Dioxide 26 BUN 18 H Creatinine 2.20 H Calcium 9.1 Hematology 12/01/24 07:22 WBC 11.7 H Hgb 14.3 Plt Count 270 Urinalysis 11/30/24 12/01/24 12:21 18:09 Urine Color Yellow Yellow Urine Appearance Clear Clear Urine pH 6.0 5.5 Ur Specific [place] 1.010 1.010 Urine Protein Negative Negative Urine Glucose (UA) Negative Negative Urine Ketones Negative Negative Urine Blood Negative Negative Urine Nitrite Negative Negative Ur Leukocyte Esterase Negative Trace H Urine RBC 0-2 Urine WBC 0-5 Ur Squamous Epith Cells 0-2 Hyaline Casts 0-2 Assessment and Plan (1) Acute kidney injury: Status: Acute (2) Foot pain, left: Status: Acute Plan Acute kidney injury: Possibly secondary to cellulitis and foot infection in the setting of ARB use Baseline creatinine normal, increased to 1.73 on 11/29/2024, peaking at 2.2.. Urinalysis clean, repeat urinalysis showing the same. Urine eosinophil negative. HIV, hepatitis panel negative, complements pending. Not on any nephrotoxic medications, vanc trough levels are under the curve. CT abdomen showed normal size kidneys, no obstruction. Continue hydration with IV fluids LR at 75 cc/hour as his oral intake is poor. We will continue to closely monitor his renal function Procedures Date of Service Date of Service: 12/02/24
[2024-12-02 11:14] VITALS: BP 131/75; PULSE 81; RESP 18; TEMP 36.7; O2SAT 96
[2024-12-02] MEDS: Lactated Ringers 1,000 ML 75 ML IVCONT (12:30)
[2024-12-02 16:00] VITALS: BP 133/87; PULSE 89; RESP 18; TEMP 36.2; O2SAT 98
--- NOTE | 2024-12-02 17:10 | P.PNIM_ITS ---
Subjective Subjective Date of Service: 12/02/24 Interval History: Persistent elevated creatinine at 2.20 Family reports some continued diarrhea, p.o. intake below baseline Some nausea, but no vomiting Abdominal pain seems resolved Left foot erythema improved Review of Systems Review of Systems: Yes all other systems are reviewed and are negative Physical Exam 2 Exam: Exam: General: Alert, no acute distress Resp: CTA bilaterally CVS: S1, S2, RRR GI: abd exam benign; +BS, NT, no distention Skin: Warm, dry Neuro: Cranial nerves II-XII grossly intact bilaterally. Motor grossly intact bilaterally Extremities: No edema. Left lower extremity as pictured below. Psych: Calm, cooperative Vital Signs: Vital Signs: Last Vital Signs Temp 97.2 F 12/02/24 16:00 Pulse 89 12/02/24 16:00 Resp 18 12/02/24 16:00 BP 133/87 12/02/24 16:00 Pulse Ox 98 12/02/24 16:00 O2 Del Method Room Air 12/02/24 16:00 O2 Flow Rate 3 12/01/24 07:26 BMI result Body Mass Index 42.3 Objective Data Active Medications Acetaminophen (Acetaminophen 325 Mg Tablet) 650 mg PO Q6H PRN PRN Reason: Pain, Mild 1-3,fever,headache Last Admin: 11/30/24 12:26 Dose: 650 mg Documented By: PAYTON Albuterol Sulfate (Albuterol Sulfate 90 Mcg 8 Gm Inhaler) 2 puff INHALE Q4H PRN PRN Reason: Wheezing Calcium Carbonate (Calcium Carbonate 750 Mg Tab.Chew) 750 mg PO Q4H PRN PRN Reason: Heartburn Ceftriaxone Sodium (Ceftriaxone Sodium 1 Gm Vial) 1 gm IVPUSH Q24H [facility] Last Admin: 12/02/24 16:18 Dose: 1 gm Documented By: RALPH Doxycycline Monohydrate (Doxycycline Monohydrate 100 Mg Capsule) 100 mg PO Q12H [facility] Last Admin: 12/02/24 08:35 Dose: 100 mg Documented By: SHANNON Fluticasone Propionate (Fluticasone Propionate 250 Mcg Blst.W.Dev) 1 puff INHALE RBID [facility] Last Admin: 12/02/24 07:36 Dose: 1 puff Documented By: SAMANTHA Lactated Ringer's (Lr) 1,000 mls @ 75 mls/hr IVCONT .[id number] [facility] Last Admin: 12/02/24 12:30 Dose: 75 mls/hr Documented By: SHANNON Lorazepam (Lorazepam 0.5 Mg Tablet) 0.5 mg PO BEDTIME PRN PRN Reason: Anxiety Losartan Potassium (Losartan Potassium 25 Mg Tablet) 25 mg PO DAILY [facility]; Protocol On Hold: 11/30/24 08:12 Last Admin: 11/29/24 08:18 Dose: 25 mg Documented By: PAYTON Magnesium Hydroxide (Milk Of Magnesia 30 Ml Oral.Susp) 30 ml PO DAILY PRN PRN Reason: Constipation Prochlorperazine Edisylate (Prochlorperazine Edisylate 10 Mg/2 Ml Vial) 5 mg IVPUSH Q4H PRN PRN Reason: Nausea and Vomiting Last Admin: 11/29/24 02:01 Dose: 5 mg Documented By: FRANCIS Quetiapine Fumarate (Quetiapine Fumarate 50 Mg Tablet) 50 mg PO BEDTIME [facility] Last Admin: 12/01/24 21:07 Dose: Not Given Documented By: ORESTES Non-Admin Reason: Patient Refused Sertraline HCl (Sertraline Hcl 50 Mg Tablet) 50 mg PO DAILY [facility] Last Admin: 12/02/24 08:35 Dose: 50 mg Documented By: SHANNON Sodium Chloride (0.9 % Sodium Chloride Flush 3 Ml Syringe) 3 ml IVFLUSH QSHIFT [facility] Last Admin: 12/02/24 15:48 Dose: Not Given Documented By: RALPH Non-Admin Reason: IV Running Zolpidem Tartrate (Zolpidem Tartrate 5 Mg Tablet) 5 mg PO DAILY PRN PRN Reason: Insomnia Labs 12/01/24 07:22 12/02/24 05:12 Labs: Laboratory Results - last 24 hr 12/01/24 12/01/24 12/02/24 18:08 18:09 05:12 Hold Purple Top SEE NOTE Anion Gap 13 Estim Creat Clear Calc 55.2 Estimated GFR 35 Random Glucose 116 H Calcium 9.1 Urine Color Yellow Urine Appearance Clear Urine pH 5.5 Ur Specific Basco 1.010 Urine Protein Negative Urine Glucose (UA) Negative Urine Ketones Negative Urine Blood Negative Urine Nitrite Negative Ur Leukocyte Esterase Trace H Urine RBC 0-2 Urine WBC 0-5 Ur Squamous Epith Cells 0-2 Urine Bacteria None Seen Hyaline Casts 0-2 Urine Eosinophils % 0.0 Random Vancomycin 12/02/24 09:13 Hold Purple Top Anion Gap Estim Creat Clear Calc Estimated GFR Random Glucose Calcium Urine Color Urine Appearance Urine pH Ur Specific Basco Urine Protein Urine Glucose (UA) Urine Ketones Urine Blood Urine Nitrite Ur Leukocyte Esterase Urine RBC Urine WBC Ur Squamous Epith Cells Urine Bacteria Hyaline Casts Urine Eosinophils % Random Vancomycin 7.8 L Assessment and Plan (1) Acute kidney injury: Status: Acute (2) Cellulitis: Status: Acute Plan This is a 29 year old male with history of intellectual delay/autism, hypertension, lactose intolerance who presents to the emergency room with worsening left foot pain and redness after being diagnosed with cellulitis on November 25, failed outpatient antibiotics with Keflex. Patient being admitted for IV antibiotic management and surgical management of left foot tense poorly, status post unclear trauma (patient has intellectual disability unable to vocalize. Left foot cellulitis with abscess failed outpatient therapy with po keflex Continue IV ceftriaxone; Vanc d/c'd and changed to linezolid general surgery consult - bedside I and D done follow blood culture TAYLOR Cr from 0.9 at baseline to 2.20 No contrasted studies, no clear incident of low BP, vanc levels not elevated, no evidence of obstruction on CT Possibly in the setting of cellulitis, foot infection, ARB use Urine negative watch I\O Nephrology consulted, will place on on gentle fluids follow BMP Diarrhea Stool studies and C diff negative could be 2/2 antibiotics CTA of abdomen/pelvis negative for acute findings Mood continue baseline meds HTN Hold losartan is TAYLOR ROSHAN multiple positive sleep studies has CPAP machine not using all the time will order while inpatient asthma, unspecified no acute exacerbation continue baseline inhalers Morbid obesity BMI 42.3 weight loss would be helpful for ROSHAN and asthma dvt ppx - early ambulation, mechanical devices code status - full code Patient needs ongoing admission overnight for resolution of TAYLOR pending nephrology evaluation and sepsis/IV antibiotics and surgical management. If pt's creatinine improves will be able to be discharged home with outpatient nephrology follow up. Quality Stroke Does the patient have a stroke diagnosis?: No VTE Prior VTE?: No VTE Risk Level:: Medical - low VTE Device Contraindication: Treatment Not Indicated VTE Drug Contraindication: Treatment Not Indicated
[2024-12-02 20:00] VITALS: BP 148/96; PULSE 78; RESP 17; TEMP 36.5; O2SAT 99
[2024-12-03] MEDS: Lactated Ringers 1,000 ML 75 ML IVCONT (00:26)
[2024-12-03 04:00] VITALS: BP 131/80; PULSE 78; RESP 19; TEMP 36.2; O2SAT 95
[2024-12-03 07:02] VITALS: BP 137/86; PULSE 92; RESP 18; TEMP 36.7; O2SAT 96
[2024-12-03 07:56] LABS: Anion Gap 13 (12-20); Blood Urea Nitrogen 16 mg/dL (9-16); Calcium 9.5 mg/dL (8.4-10.2); Carbon Dioxide 29 mmol/L (22-29); Chloride 105 mmol/L (96-108); Creatinine Clr Calc Pharmacy 64.9; Estimated Glomerular Filt Rate 42; Potassium 4.1 mmol/L (3.3-5.1); Sodium 143 mmol/L (135-145)
--- NOTE | 2024-12-03 09:28 | P.PNNP_ITS ---
Subjective Subjective Date of Service: 12/03/24 Interval history: Creatinine improving, down to 1.87 this morning Physical Exam 2 Vital Signs: Vital Signs: Last Vital Signs Temp 98.1 F 12/03/24 07:02 Pulse 92 12/03/24 07:02 Resp 18 12/03/24 07:02 BP 137/86 12/03/24 07:02 Pulse Ox 96 12/03/24 07:02 O2 Del Method Room Air 12/03/24 07:02 O2 Flow Rate 3 12/01/24 07:26 BMI result Body Mass Index 42.3 General: not in any acute distress, ill appearing Nutritional Appearance: well nourished and overweight Eyes: appearance normal, both eyes and all related structures; Neck: No lymphadenopathy, no thyromegaly Resp: bilateral air entry equal, no added sounds present Cardio: Regular rate, regular rhythm; Heart sounds: S1 normal heart sound present and S2 normal heart sound present GI: soft, nontender, no guarding, no hepatosplenomegaly : bladder normal to inspection, bladder normal to palpation, no renal angle tenderness Skin: no rashes or lesions noted and elasticity normal Neuro: alert, oriented x 3, moves all extremities Objective Data Labs 12/01/24 07:22 12/03/24 05:23 Labs: Laboratory Results - last 24 hr 12/02/24 12/03/24 09:13 05:23 Sodium 143 Potassium 4.1 Chloride 105 Carbon Dioxide 29 Anion Gap 13 BUN 16 Creatinine 1.87 H Estim Creat Clear Calc 64.9 Estimated GFR 42 Random Glucose 84 Calcium 9.5 Random Vancomycin 7.8 L Microbiology Microbiology Results: Microbiology 11/28/24 15:28 Blood - Venous Blood Culture - Preliminary No growth after 48 hours. 11/28/24 15:28 Blood - Venous Blood Culture - Preliminary No growth after 48 hours. Procedures Date of Service Date of Service: 12/03/24 Assessment & Plan Assessment and plan (1) Acute kidney injury: Status: Acute (2) Foot pain, left: Status: Acute Plan Acute kidney injury: Possibly secondary to cellulitis and foot infection in the setting of ARB use Baseline creatinine normal, increased to 1.73 on 11/29/2024, peaking at 2; decreased to 1.87 this morning. Urinalysis clean, repeat urinalysis showing the same. Urine eosinophil negative. HIV, hepatitis panel negative, complements pending. Not on any nephrotoxic medications, vanc trough levels are under the curve. CT abdomen showed normal size kidneys, no obstruction. Can stop IV fluids, antibiotics switched to oral doxycycline and linezolid.. Continue holding ARB Can be discharged from Nephrology point of view, nephrology will sign off; we will arrange for a clinic follow up in 2- 3 weeks Time Spent With Patient Time: Total time managing care of this patient today ____ minutes. Progress Note: Quality Stroke Does the patient have a stroke diagnosis?: No
--- NOTE | 2024-12-03 11:08 | MHC.CM.PN ---
Patient is discharged to home today. [employer] services with resume. He has arranged for private transport home.
--- NOTE | 2024-12-03 12:18 | PM.DS ---
DS: Providers Provider Date of Service: 12/03/24 Date of admission: 11/30/24 10:50 Date of discharge: 12/03/24 Primary care physician: Edith Conde MD Consults: 11/28/24 16:55 Consult to General Surgery [place]ine [place] [facility] [place] [facility] Reason for consultation: left foot infection with abscess Has provider been notified: No 11/30/24 10:48 Consult to Nephrology Routine Consulting Provider[place] [facility] [place] [facility] Reason for consultation: new TAYLOR For eval and rec DS: Diagnosis Discharge Diagnosis (1) Acute kidney injury: Status: Acute (2) Foot pain, left: Status: Acute DS: Summary Hospital Course Hospital Course: From admission HPI: Date of Service: 11/28/24 Attending physician on admission: Rowan Waters Chief Complaint: left foot infection This is a 29-year-old Chadian-speaking male with a history of intellectual disability/autism who was brought to the emergency department by his mother for worsening left foot pain. History was obtained from the patient's mother at the bedside. He was initially seen in the emergency department on November 25 for pain especially on his left 5th toe. At that time he was discharged with a course of Keflex and advised soaking in warm water several times daily. He has been taking his medication as prescribed but the redness, swelling, pain has been increasing. There is also an area on the left 5th toe she appears to be an abscess. Lab work today revealed leukocytosis of 11.3, ESR 32, CRP 10.97. Lactic acid 1.2. Foot x-ray showed no evidence of bony abnormality quality. Patient was treated with a dose of Zosyn and vancomycin. Hospital course Pt was admitted to the hospital for left foot cellulitis that failed outpatient therapy on cephalexin. Pt was treated with Zosyn and vancomycin with slow but continued improvement in cellulitis. Pt was noted to have a blister on his left 5th digit; was seen and evaluated by General surgery who performed a bedside I&D. Patient's hospital stay was complicated by an TAYLOR that initially increased as high as 2.2 before reducing to 1.87 this morning. He was seen and evaluated by Nephrology who thought TAYLOR likely secondary to cellulitis and foot infection in the setting of Arb use. Patient's losartan has been held while in the hospital and will be continued to be held until outpatient Nephrology follow up. The pt was also noted to have diarrhea and some abdominal discomfort while in the hospital, likely secondary to antibiotic use. Pt did have CTA of abdomen/pelvis performed which was negative for acute abnormality. Pt will be discharged on linezolid 600 mg b.i.d. x3 days. Pt is a. Taking cephalexin. Pt should also hold taking losartan until nephrology follow up in 1-2 weeks. Additional details concerning hospital stay as indicated below. Left foot cellulitis with abscess failed outpatient therapy with po keflex Treated with IV ceftriaxone; Vanc d/c'd and changed to linezolid general surgery consult - bedside I and D done Blood culture negative after 48 hours TAYLOR Cr from 0.9 at baseline to 2.20, today improved to 1.87 No contrasted studies, no clear incident of low BP, vanc levels not elevated, no evidence of obstruction on CT Possibly in the setting of cellulitis, foot infection, ARB use Urine negative Nephrology consulted, placed on on gentle fluids Urine eosinophil negative; HIV and hepatitis panel negative; complements pending Diarrhea Stool studies and C diff negative could be 2/[address] of abdomen/pelvis negative for acute findings Mood continue baseline meds HTN Hold losartan due to TAYLOR Continue to hold upon discharge until cleared by nephrology in outpatient setting ROSHAN multiple positive sleep studies has CPAP machine not using all the time will order while inpatient asthma, unspecified no acute exacerbation continue baseline inhalers Morbid obesity BMI 42.3 weight loss would be helpful for ROSHAN and asthma Time Attestation Discharge Coordination Time (in mins): 35 Quality: Safe Use of Opioids Does Pt have an Active Cancer Diagnosis on the Problem List?: No Quality: Stroke Does the patient have a stroke diagnosis?: No Physical Exam Exam: Exam: General: Alert, no acute distress Resp: CTA bilaterally CVS: S1, S2, RRR GI: abd exam benign; +BS, NT, no distention Skin: Warm, dry Neuro: Cranial nerves II-XII grossly intact bilaterally. Motor grossly intact bilaterally Extremities: No edema. Left lower extremity with improved erythema, as pictured below. Psych: Calm, cooperative Vital Signs: Vital Signs: Last Vital Signs Temp 98.1 F 12/03/24 07:02 Pulse 92 12/03/24 07:02 Resp 18 12/03/24 07:02 BP 137/86 12/03/24 07:02 Pulse Ox 96 12/03/24 07:02 O2 Del Method Room Air 12/03/24 07:02 O2 Flow Rate 3 12/01/24 07:26 BMI result Body Mass Index 42.3 DS: Data Data Completed and Pending Labs on day of discharge: Laboratory Results - last 24 hr 12/03/24 05:23 Sodium 143 Potassium 4.1 Chloride 105 Carbon Dioxide 29 Anion Gap 13 BUN 16 Creatinine 1.87 H Estim Creat Clear Calc 64.9 Estimated GFR 42 Random Glucose 84 Calcium 9.5 Preliminary micro results at discharge 11/28/24 15:28 Blood Culture - Preliminary Blood - Venous No growth after 48 hours. 11/28/24 15:28 Blood Culture - Preliminary Blood - Venous No growth after 48 hours. Discharge Plan Discharge Anticipated Discharge Date/Time: 12/03/24 10:27 Patient Disposition: Home, Self-Care Discharge Diagnosis: Left foot cellulitis that failed outpatient therapy Referrals: Arnoldo Flores MD [Physician, Critical Care ([facility])] - 1 Week Referral Note: F/U for TAYLOR possibly from left foot cellulitis and ARB use Edith Conde MD [Primary Care Provider, Internal Medicine] - 1 Week Discharge Medications: New linezolid 600 mg tablet 600 mg PO Q12H Qty: 5 0RF Rx Instructions: Take 1 tablet twice a day with food for the next 2 days, starting the evening of 12/03 and ending the evening of 12/05 Continued cetirizine 10 mg Tablet 10 mg PO DAILY PRN (Reason: Allergic Symptoms) Asmanex HFA 200 mcg/actuation HFA aerosol inhaler 1 puff inhalation BID albuterol sulfate [Ventolin HFA] 90 mcg/actuation HFA aerosol inhaler 2 puff inhalation Q4H PRN (Reason: wheezing) quetiapine 50 mg tablet 50 mg PO BEDTIME lorazepam 0.5 mg tablet 0.5 mg PO BEDTIME PRN (Reason: anxiety) zolpidem 10 mg tablet 10 mg PO DAILY PRN (Reason: Insomnia) sertraline 50 mg tablet 50 mg PO QAM Held losartan 25 mg tablet 25 mg PO QAM Hold Instructions: Resume on 12/17/24. Hold until you see nephrology and they clear you to begin taking again. Discontinued cephalexin 500 mg capsule 500 mg PO QID Qty: 28 0RF Discharge Orders: Discharge Order (Routine); Ordered 12/03/24 Ordered By: Aminata Archuleta Activity on Discharge: As tolerated Stand Alone Forms: Patient Portal Discharge page Print Language: Chadian Care Plan Goals: See below Health Concerns: Cellulitis Abscess Acute kidney injury Plan of Treatment: You were admitted to the hospital for left foot cellulitis that failed outpatient therapy. You were started on IV antibiotics and also were seen and evaluated by General surgery who did an incision and drainage on a blister over your left 5th toe. Hospital stay was complicated by developing an acute kidney injury. You were seen and evaluated by Nephrology who thought this was likely due to your foot infection. Your kidney function eventually improved today on the day of your discharge. You were losartan has been held while in the hospital, and should continue to be held until you see Nephrology and they give you the okay to resume. You will be discharged home on oral antibiotics for the next 3 days, and should follow up with Nephrology outpatient. -- stop cephalexin. You will instead be prescribed linezolid 600 mg twice a day to be taken with food, starting the evening of 12/03 and ending the evening of 12/05. -- follow up with Dr. Flores in nephrology in 1-2 weeks to monitor kidney progress and for resolution of TAYLOR -- stop taking your losartan for now; do not take until you see nephrology and they tell you to resume -- resume all of your other home medications Assessment: See discharge summary
--- NOTE | 2024-12-03 16:03 | P.CDIM_ITS ---
PROVIDER RESPONSE TEXT: To clarify, the appropriate diagnosis supported by the clinical indicators: Incision and drainage left foot: skin only QUERY TEXT: PHYSICIAN'S DOCUMENTATION REQUEST Date of Query: 12/03/2024 05:57 AM EDT Patient Name: Bruce Manning Admit Date: 11/30/2024 Dear Patrick Jack MD, A review of the medical record indicates additional documentation may be needed. Please review below and update the documentation accordingly. Clinical Indicators: Surgical consultation note dated 11/29/24 - Procedure: Incision and drainage: Foot, left Incised with the scissors. Amount of fluid (mL) 5 Wound dressed with 4 x 4 and 4 in [place]. Could you provide, in the Progress Notes, further clarification regarding the Depth of the I&D: Incision and drainage left foot skin, subcutaneous, fascia etc. Other specifics to the I&D please specify Other (explain) Clinically unable to determine (explain) Thank you, Marsha Partida, CCS, CDIS Use of terms such as suspected, likely, concern for, or probable (associated with a specific diagnosis that is being evaluated, monitored, or treated as if it exists) are acceptable and can be coded in the inpatient setting, when documented at the time of discharge. Please use your independent medical judgment in providing your response. THIS QUERY IS PART OF THE PERMANENT MEDICAL RECORD
== END 2024-12-03 12:48 | disposition home or self-care (01) | DRG 383 ==
LOC: HO.ED 15:35 → HO.EDOVER 16:58 → HO.IMC 11-29 00:08 → HO.S3 12-02 14:18
PROVIDERS: Internal Medicine Critical Care Medicine; Physician Assistant; Student in an Organized Health Care Education/Training Program; Admitting Provider Physician Assistant Medical; Emergency Provider Emergency Medicine; PCP Family Medicine; Visit Provider Student in an Organized Health Care Education/Training Program
DX: L02.612 Cutaneous abscess of left foot (principal); N17.9 Acute kidney failure, unspecified; K52.1 Toxic gastroenteritis and colitis; L03.116 Cellulitis of left lower limb; G47.33 Obstructive sleep apnea (adult) (pediatric); T36.95XA Adverse effect of unspecified systemic antibiotic, initial encounter; F84.0 Autistic disorder; F79 Unspecified intellectual disabilities; J45.909 Unspecified asthma, uncomplicated; Z68.41 Body mass index [BMI] 40.0-44.9, adult; Z71.3 Dietary counseling and surveillance; Z79.899 Other long term (current) drug therapy
CPT/HCPCS: 36415; 73620; 74176; 80048; 80053; 80202; 81001; 81003; 82565; 83036; 83605; 84443; 84550; 85025; 85652; 85999; 86140; 86160; 87040; 87493; 87507; 94640; 99285; J0696; J0737; J2543; J3373; J3374; J7120

== ENCOUNTER → 2024-11-28 13:30 | Outpatient (BNV) | payer MEDICAID, SELFPAY | PROVIDERS: PCP Family Medicine; Visit Provider Radiology Diagnostic Radiology | DX: R22.42 Localized swelling, mass and lump, left lower limb (principal) | CPT/HCPCS: 73620 ==

== ENCOUNTER → 2024-11-28 16:52 | Outpatient (BNV) | payer MEDICAID, SELFPAY | PROVIDERS: Admitting Provider Physician Assistant Medical; Emergency Provider Emergency Medicine; PCP Family Medicine; Visit Provider Physician Assistant Medical | DX: N17.9 Acute kidney failure, unspecified (principal); L03.90 Cellulitis, unspecified | CPT/HCPCS: 99233 ==

== ENCOUNTER → 2024-11-28 16:52 | Outpatient (BNV) | payer MEDICAID, SELFPAY | PROVIDERS: Admitting Provider Physician Assistant Medical; Emergency Provider Emergency Medicine; PCP Family Medicine; Visit Provider Surgery | DX: L03.90 Cellulitis, unspecified (principal); M79.672 Pain in left foot | CPT/HCPCS: 10060; 99222 ==

== ENCOUNTER 2024-11-30 10:50 | Outpatient (BNV) | payer MEDICAID, SELFPAY | END 2024-12-01 14:03 | PROVIDERS: Admitting Provider Physician Assistant Medical; Emergency Provider Emergency Medicine; PCP Family Medicine; Visit Provider Radiology Diagnostic Radiology | DX: R10.30 Lower abdominal pain, unspecified (principal); N17.9 Acute kidney failure, unspecified | CPT/HCPCS: 74176 ==

== ENCOUNTER → 2024-11-30 10:50 | Outpatient (BNV) | payer MEDICAID, SELFPAY | PROVIDERS: Admitting Provider Physician Assistant Medical; Emergency Provider Emergency Medicine; PCP Family Medicine; Visit Provider Internal Medicine Critical Care Medicine | DX: N17.9 Acute kidney failure, unspecified (principal); M79.672 Pain in left foot | CPT/HCPCS: 99222; 99232 ==

== ENCOUNTER 2025-01-02 13:45 | Outpatient (REF) | payer MEDICAID, SELFPAY ==
[2025-01-02 15:20] LABS: Hematocrit 47.6 % (42.0-52.0); Hemoglobin 15.6 g/dl (14.0-18.0); Mean Corpuscular HGB Conc 32.8 g/dl (31.0-36.0); Mean Corpuscular Hemoglobin 27.7 pg (27.0-33.0); Mean Corpuscular Volume 84.4 fL (80.0-98.0); NRBC Abs Auto 0.000 X10*3/uL (0.0-0.012); NRBC Pct Auto 0.0 /100WBC (0.0-0.2); Platelet Count 218 X10*3/uL (160-400); Red Blood Count 5.64 X10*6/uL (4.60-5.80); White Blood Count 6.5 X10*3/uL (4.8-10.8)
[2025-01-02 15:40] LABS: Appearance Urine Clear; Glucose Urine UA Negative (Negative); PH 6.0 (5.0-9.0); Specific Gravity - Urine 1.020 (1.005-1.025)
[2025-01-02 15:49] LABS: Anion Gap 13 (12-20); Blood Urea Nitrogen 10 mg/dL (9-16); Calcium 9.3 mg/dL (8.4-10.2); Carbon Dioxide 25 mmol/L (22-29); Chloride 107 mmol/L (96-108); Estimated Glomerular Filt Rate > 60; Potassium 3.9 mmol/L (3.3-5.1); Sodium 141 mmol/L (135-145)
[2025-01-02 16:38] LABS: Microalbum/Creatinine Ratio Ur 10.6 ug/mg cr (<30); Protein/Creatinine Ratio, Ur 0.07 (<0.2); Total Protein Urine Random 15 mg/dL (<12)
== END 2025-01-02 13:46 | disposition home or self-care (01) ==
LOC: HO.LAB 13:45
PROVIDERS: PCP Family Medicine; Visit Provider Internal Medicine Critical Care Medicine
DX: I10 Essential (primary) hypertension (principal); N17.9 Acute kidney failure, unspecified
CPT/HCPCS: 36415; 80048; 81003; 82043; 82570; 84156; 85027; 99212

== ENCOUNTER 2025-01-02 13:45 | Outpatient (AMB) | payer MEDICAID, SELFPAY ==
--- NOTE | 2025-01-02 13:48 | HO.NEPHOV ---
Vital Signs 01/02/25 13:51 Height 5 ft 4 in Weight 243 lb 6 oz BMI 41.8 BP 140/100 H Blood Pressure Location Lt brachial Position Sitting Pulse 95 Pulse Source Pulse Oximeter Pulse Oximetry (%) 100 Oxygen Delivery Method Room Air Intake Visit Reasons: [facility] [place] HFU 3wks-LVM Planer Offbearer Required: Yes Planer Offbearer Language: Admission Nurse Coordinator Services: Planer Offbearer Present Planer Offbearer Name: [id number] Information Interpreted: clinical only Accompanied by: Mother Allergies No Known Allergies Allergy (Verified 01/02/25 13:50) lactose intolerance Allergy (Unknown, Uncoded 11/25/24 11:39) Unknown HPI Comments Details: 29-year-old male with past medical history of autism spectrum disorder, hypertension (on losartan), obstructive sleep apnea, restless leg syndrome wass admitted to the hospital due to pain in the left foot leading to cellulitis leading to TAYLOR. he is here for hospital followup appointment. Last night couldnt sleep as he had waist pain, it was bothering him since Sunday. No fever, leg looks better. His baseline creatinine is 0.9 on admission, increased to 1.73 on 11/29 now peaked to 2.2 and decreased to 1.87 upon discharge. Ur[address] clean. CT abdomen and pelvis showing normal size kidneys, no obstruction. [facility] [place] Medical History ROSHAN (obstructive sleep apnea) Intellectual disability Asthma Seizure Surgical History History of hernia surgery Family History Father Diabetes Mother Diabetes Arthritis Depression Social History Household Members: Family Housing: Apartment Alcohol intake: never Comment: family in room with pt Patient Tobacco Use Status: Never used Tobacco service: No Review of Systems Const Details: Const : no body aches, no chills, no excessive sweating and no fatigue Eyes: no blurry vision and no change in vision ENT: no bleeding gums and no change in voice, no dizziness Card: no chest pain, no shortness of breath, no orthopnea, no PND Resp: no cough, no excessive phlegm production, no SOB GI: no abdominal pain and no nausea, no vomiting : no hematuria, no urinary frequency and no difficulty voiding Musc: no abnormal gait, no bone pain, waist pain+ Neuro: no abnormal movements, no weakness, no dizziness, no abnormal gait and no behavioral changes Psych: no behavioral changes and no change in appetite Endo: no change in body appearance, no cold intolerance, no excessive sweating and no fatigue Physical Exam Vital Signs: Last Vital Signs Pulse 95 01/02/25 13:51 BP 140/100 H 01/02/25 13:51 Pulse Ox 100 01/02/25 13:51 Oxygen Delivery Method Room Air 01/02/25 13:51 BMI result Body Mass Index 41.8 General: not in any acute distress, comfortable, sitting on the chair Nutritional Appearance: well nourished and weight Eyes: normal position, no icterus Neck: No lymphadenopathy, no thyromegaly Resp: bilateral air entry equal, no added sounds present Cardio: normal S1, S2 heard, no murmur heard, no edema GI: soft, nontender, no guarding, no hepatosplenomegaly : bladder normal to inspection, bladder normal to palpation, no renal angle tenderness Skin: no rashes or lesions noted and elasticity normal Neuro: oriented to person, oriented to place, oriented to time and moves all extremities Results Reviewed Nephrology Results: Hgb, (14.0-18.0) 15.6 g/dl Today WBC, (4.8-10.8) 6.5 X10*3/uL Today Plt Count, (160-400) 218 X10*3/uL Today Sodium, (135-145) 141 mmol/L Today Potassium, (3.3-5.1) 3.9 mmol/L Today Chloride, (96-108) 107 mmol/L Today Carbon Dioxide, (22-29) 25 mmol/L Today BUN, (9-16) 10 mg/dL Today Creatinine, (0.5-1.4) 0.90 mg/dL Today Calcium, (8.4-10.2) 9.3 mg/dL Today Urine Protein, (Neg-Trace) Trace mg/dL Today Urine Creatinine Pending Today Protein/Creatinin Ratio Pending Today Assessment & Plan Assessment & Plan (1) Hypertension: Code(s): I10 - Essential (primary) hypertension Category: Medical (2) Acute kidney injury: Code(s): N17.9 - Acute kidney failure, unspecified Category: Medical Plan Acute kidney injury: Possibly secondary to cellulitis and foot infection in the setting of ARB use Baseline creatinine normal, increased to 1.73 on 11/29/2024, peaking at 2; decreased to 1.87 upon discharge Urinalysis clean, repeat urinalysis showing the same. Urine eosinophil negative. HIV, hepatitis panel negative, complements normal. CT abdomen showed normal size kidneys, no obstruction. he forgot his losartan this morning or else he restarted on Dec 16. He complains of waist pain, will prescribe him cyclobenzaprine as needed; if he develops fever or vomiting needs to go to ER. will get repeat labs today, if abnormal will call him to schedule followup appointment Orders: Orders Microalbumin, Random (w Creat) Today I10 - Essential (primary) hypertension, N17.9 - Acute kidney failure, unspecified Protein Creatinine Ratio, Ur Today I10 - Essential (primary) hypertension, N17.9 - Acute kidney failure, unspecified Complete Blood Count no Diff Today I10 - Essential (primary) hypertension, N17.9 - Acute kidney failure, unspecified Basic Metabolic Panel Today I10 - Essential (primary) hypertension, N17.9 - Acute kidney failure, unspecified UA and rflx microscopic Today I10 - Essential (primary) hypertension, N17.9 - Acute kidney failure, unspecified Medications: New cyclobenzaprine 5 mg PO TID PRN 60 tabs 1RF muscle spasm 30 days Coding Level of Care Code Est Pt Level 4 (78200) Diagnoses Hypertension I10 Acute kidney injury N17.9
[2025-01-02 13:51] VITALS: BP 140/100; PULSE 95; O2SAT 100; BMI 41.8
--- OUTSIDE RECORDS SUMMARY | 2025-01-02 14:15 | XMS_ITS | Clinical Summary ---
Author Organization [employer] Address [address] [facility] [address] [place] [address] Care Team Providers Care String Laster Name Role Phone Edith Conde MD Primary Care Provider [phone] Allergies No known active allergies Medications Acetaminophen [...] 12:18 PM EDT): -Patient had evaluation with Animal Doctor. -Difficulty with evaluation due to patient's intellectual disability.. -Pt evaluated by ENT and was advised that her did not have significant hearing loss and had Normal Ear Exam. Assessment & Plan (04/13/2023 6:47 AM EST): -Patient had evaluation with Animal Doctor. -Difficulty with evaluation due to patient's intellectual disability.. -Pt evaluated by ENT and was advised that her did not have significant hearing loss and had Normal Ear Exam. Assessment & Plan (03/21/2022 3:15 PM EST): -Patient had evaluation with Animal Doctor. -Difficulty with evaluation due to patient's intellectual [...] compliance and therapy response. - following with [facility] sleep medicine clinic Assessment & Plan (04/13/2023 [...] PM EDT): He has been referred to [facility] many times, but his family has a difficulty keeping appt Medications: Risperidone 0.5 mg bid; sertraline 50 mg daily; hydroxyzine 25 mg prn. Previously on lorazepam when he was in [place]. Previously seen by [facility] clinician and his mother was referred to [facility]. The family needs support in navigating social and behavioral health services. He did not want to go to Adult Day program. He wanted to work. His family is now accepting our recommendation to try day program. Assessment & Plan (04/13/2023 6:47 AM EST): He has been referred to [facility] many times, but his family has a difficulty keeping appt Medications: Risperidone 0.5 mg bid; sertraline 50 mg daily; hydroxyzine 25 mg prn. Previously on lorazepam when he was in [place]. Previously seen by [facility] clinician and his mother was referred to [facility]. The family needs support in navigating social and behavioral health services. He did not want to go to Adult Day program. He wanted to work. His family is now accepting our recommendation to try day program. Assessment & Plan (03/21/2022 3:13 PM EST): He has been referred to [facility] many times, but his family has a difficulty keeping appt Medications: Risperidone 0.5 mg bid; sertraline 50 mg daily; hydroxyzine 25 mg prn. Previously on lorazepam when he was in [place]. Previously seen by [facility] clinician and his mother was referred to [facility]. The family needs support in navigating [...] Encounters Date Type Department Care Team Description 12/12/2024 Travel 12/04/2024 Patient Outreach [facility] [address] [place] [phone] Edith Conde MD Transition Of Care (Tcm) (HDF- unscheduled LVM ) 11/30/2024 Orders Only [facility] External Provider, [facility] 11/28/2024 Orders Only GENERIC EXTERNAL DATA DEPARTMENT Provider, Generic External Data 11/25/2024 Orders Only [facility] External Provider, [facility] 10/29/2024 Telephone [facility] [address] [place] [phone] Edith Conde MD december 10/12/2024 Orders Only [facility] External Provider, [facility] from Last 3 Months Immunizations Immunization Administration [...] your housing situation today? I have jj igor 09/15/[address] you li [...] 09/23/2024 3:14 PM EDT Plan of Treatment Upcoming Encounters Date Type Department Care Team (Late st Contact Info) Description 03/26/2025 2:00 PM EST Office Visit [facility]OM[facility] [address] [place] [address] Deborah Narayan, OD [address] [place] [address] Health Maintenance Due Date Last Done Comments Family Planning (PISQ) 2008 HPV Vaccines (1 - 3-dose series) 2008 Diabetes: Hemoglobin A1C 04/18/2024 03/07/2 024, 01/03/2021, 08/14/2019, Additional history exists COVID-19 Vaccine ( season) 2024 04/12/2023, 03/21/2022, 01/24/2021, Additional history exists Influenza Vaccine (#1) 2024 , 12/26/2018, 03/20/2018, Additional history exists Hepatitis B Vaccines (3 of 3 - 19+ 3-dose series) 11/18/2024 09/23/2024, 04/12/2023 Alcohol/Substance Use Screening 09/23/2025 09/23/2024 Disability Screening 09/23/2025 09/23/2024 SDOH Screening 09/23/2025 09/23/2024 Tobacco Screening 09/30/2025 09/30/2024 Lipid Panel 11/03/2029 11/03/2024, 03/08/2023, 01/03/2021 DTaP/Tdap/Td Vaccines (3 - Td or [...] Procedure Name Priority Date/Time Associated Diagnosis Comments CT ABDOMEN PELVIS WO CONTRAST Routine 12/01/2024 2:03 PM EDT LACTIC ACID Routine 11/28/2024 3:28 PM EDT [...] NUCLEIC ACID Routine 10/12/2024 3:17 AM EDT HEMOGLOBIN A1C Routine 04/19/2023 11:09 AM EST Prediabetes from Last 3 Months or Most Recently Relevant to Health Maintenance Results * CT Abdomen Pelvis w/o Contrast (12/01/2024 2:03 PM EDT) Anatomical Region Laterality Modality Body, Pelvis, Abdomen Computed T omography 12/01/2024 2:03 PM EDT Narrative 12/01/2024 2:33 PM EDT [place] [address] [address] Scan Report Signed Patient: Bruce Manning MR#: [id number] : 1995 Acct:[id number] Age/Sex: 29 / M ADM Date: 11/30/24 Loc: [facility] 445-[address]: Aminata VILCHIS Ordering Physician: Aminata Archuleta Date of Service: 12/01/24 Procedure(s): CT abdomen pelvis wo IV con Accession Number(s): [id number] cc: Aminata Archuleta; Edith Conde MD Report Number: [id number]: Total DLP = 647.00 mGy-cm Reason for Exam: Abd pain EXAMINATION: CT ABDOMEN AND PELVIS WITHOUT CONTRAST CLINICAL INFORMATION: Abdominal pain, with vague complaints. Patient with developmental delay. Patient with TAYLOR. COMPARISON: 08/06/2018. TECHNIQUE: Multidetector volumetric imaging was performed from the superior aspect of the liver through the pubic symphysis. Sagittal and coronal reformatted images were obtained on the technologist's workstation. This CT examination was performed using dose optimization techniques as appropriate, variously including the following: *Automated exposure control *Adjustment of mA and/or kV according to patient size (this includes techniques or standardized protocols for targeted exams where dose is matched to indication/reason for exam; i.e. extremities or head) *Use of iterative reconstruction technique FINDINGS: LUNG BASES: The visualized lung bases are unremarkable. LIVER, GALLBLADDER, AND BILIARY TREE: The unenhanced liver is normal in size, shape, and attenuation. No focal hepatic lesion or biliary ductal dilatation is present. The gallbladder is unremarkable with no evidence of radiopaque gallstones, gallbladder wall thickening, or obvious pericholecystic inflammatory changes. PANCREAS: Unremarkable. SPLEEN: Unremarkable. ADRENAL GLANDS: Unremarkable. KIDNEYS AND URETERS: The unenhanced kidneys are normal in size, shape, and attenuation. No hydronephrosis, hydroureter, or calculi seen. Minimal perinephric stranding. BLADDER: Normal. GASTROINTESTINAL TRACT: Normal appendix visualized. The stomach, duodenum, and small bowel are normal in course, caliber, and appearance. No wall thickening or inflammation. The colon is normal in course and caliber without wall thickening or inflammation. There is no rectal abnormality. ABDOMINAL WALL: There is a tiny fat-containing umbilical hernia. There is evidence of prior left inguinal hernia repair. No additional abnormalities. LYMPH NODES: No abnormal lymphadenopathy is present. VASCULAR: Unremarkable. Retroaortic left renal vein. PELVIC VISCERA: Unremarkable. OSSEOUS STRUCTURES: No suspicious lytic or blastic bone lesion. CT/CT abdomen pelvis wo IV con IMPRESSION: 1. No acute findings in the abdomen or pelvis. Electronically signed by: Terrance Sandhu MD 12/01/2024 02:30 PM EDT Dictated By: Terrance Sandhu MD Signed By: <Electronically signed by Terrance Sandhu MD in OV> 12/01/24 1430 DD/ 1403 TD/TT: 12/01/24 1417 Criminal Research Specialist: Procedure Note Donotuseinterpreter, Image - 12/01/[address] [place] [address] [address] Scan Report Signed Patient: Ric Manning#: [id number] : 1995Acct:[id number] Age/Sex: 29 / MADM Date: 11/30/24 Loc: [facility] 445-[address]: Aminata VILCHIS Ordering Physician: Aminata Archuleta Date of Service: 12/01/24 Procedure(s): CT abdomen pelvis wo IV con Accession Number(s): [id number] cc: Aminata Archuleta; Edith Conde MD Report Number: [id number]: Total DLP = 647.00 mGy-cm Reason for Exam: Abd pain EXAMINATION: CT ABDOMEN AND PELVIS WITHOUT CONTRAST CLINICAL INFORMATION: Abdominal pain, with vague complaints. Patient with developmental delay. Patient with TAYLOR. COMPARISON: 08/06/2018. TECHNIQUE: Multidetector volumetric imaging was performed from the superior aspect of the liver through the pubic symphysis. Sagittal and coronal reformatted images were obtained on the technologist's workstation. This CT examination was performed using dose optimization techniques as appropriate, variously including the following: *Automated exposure control *Adjustment of mA and/or kV according to patient size (this includes techniques or standardized protocols for targeted exams where dose is matched to indication/reason for exam; i.e. extremities or head) *Use of iterative reconstruction technique FINDINGS: LUNG BASES: The visualized lung bases are unremarkable. LIVER, GALLBLADDER, AND BILIARY TREE: The unenhanced liver is normal in size, shape, and attenuation. No focal hepatic lesion or biliary ductal dilatation is present. The gallbladder is unremarkable with no evidence of radiopaque gallstones, gallbladder wall thickening, or obvious pericholecystic inflammatory changes. PANCREAS: Unremarkable. SPLEEN: Unremarkable. ADRENAL GLANDS: Unremarkable. KIDNEYS AND URETERS: The unenhanced kidneys are normal in size, shape, and attenuation. No hydronephrosis, hydroureter, or calculi seen. Minimal perinephric stranding. BLADDER: Normal. GASTROINTESTINAL TRACT: Normal appendix visualized. The stomach, duodenum, and small bowel are normal in course, caliber, and appearance. No wall thickening or inflammation. The colon is normal in course and caliber without wall thickening or inflammation. There is no rectal abnormality. ABDOMINAL WALL: There is a tiny fat-containing umbilical hernia. There is evidence of prior left inguinal hernia repair. No additional abnormalities. LYMPH NODES: No abnormal lymphadenopathy is present. VASCULAR: Unremarkable. Retroaortic left renal vein. PELVIC VISCERA: Unremarkable. OSSEOUS STRUCTURES: No suspicious lytic or blastic bone lesion. CT/CT abdomen pelvis wo IV con IMPRESSION: 1. No acute findings in the abdomen or pelvis. Electronically signed by: Terrance Sandhu MD 12/01/2024 02:30 PM EDT RP Dictated By: Terrance Sandhu MD Signed By: <Electronically signed by Terrance Sandhu MD in OV> 12/01/24 1430 DD/ 1403 TD/TT: 12/01/24 1417 Criminal Research Specialist: [facility] External Provider IMG CT PROCEDURES Edited Result - Final * Lactic Acid (11/28/2024 3:28 PM EDT) [facility] Lactic Acid 1.2 0.5 - 2.0 mmol/L [facility] 11/28/2024 3:28 PM EDT 11/28/2024 3:35 PM EDT Generic External Data Provider LAB BLOOD ORDERAB LES Final Result [facility] [address] [place] [phone] * (ABNORMAL) CBC auto differential (11/28/2024 1:38 PM EDT) Only the most recent of3 resultswithin the time period is included. [facility] White Blood Count 11.3(H) 4.8 - 10.8 X10*3/uL [facility] Red Blood Count 5.73 4.60 - 5.80 X10*6/uL [facility] Hemoglobin 16.2 14.0 - 18.0 g/dl [facility] Hematocrit 48.6 42.0 - 52.0 % [facility] Mean Corpuscular Volume 84.8 80.0 - 98.0 fL [facility] Mean Corpuscular Hemoglobin 28.3 27.0 - 33.0 pg [facility] Mean Corpuscular HGB Conc 33.3 31.0 - 36.0 g/dl [facility] Red Cell Distribution Width 13.2 11.0 - 16.0 % [facility] Platelet Count 223 160 - 400 X10*3/uL [facility] Mean Platelet Volume 10.3 9.4 - 12.4 fL [facility] Neutrophils Percent Auto 76.3(H) 45 - 73 % [facility] Imm Gran Pct Auto 0.4 0.0 - 0.4 % [facility] Lymphocytes Percent Auto 16.6(L) 20 - 40 % [facility] Monocytes Percent Auto 5.7 2 - 11 % [facility] Eosinophils Percent Auto 0.4 0 - 4 % [facility] Basophils Percent Auto 0.6 0 - 2 % [facility] NRBC Pct Auto 0.0 0.0 - 0.2 /100WBC [facility] Neutrophils Absolute Auto 8.6(H) 2.0 - 8.3 x10*3/uL [facility] Imm Gran Abs Auto 0.04(H) 0.00 - 0.03 X10*3/uL [facility] Lymphocytes Absolute Auto 1.9 1.2 - 4.9 X10*3/uL [facility] Monocytes Absolute Auto 0.6 0.1 - 1.2 X10*3/uL [facility] Eosinophils Absolute Auto 0.0 0.0 - 0.4 X10*3/uL [facility] Basophils Absolute Auto 0.1 0.0 - 0.2 X10*3/uL [facility] NRBC Abs Auto 0.000 0.0 - 0.012 X10*3/uL [facility] 11/28/2024 1:38 PM EDT 11/28/2024 1:42 PM EDT us Generic External Data Provider LAB BLOOD ORDERAB LES Final Result [facility] [address], [place] [phone] * (ABNORMAL) Sed Rate by Modified Marycruz (11/28/2024 1:38 PM EDT) Only the most recent of2 resultswithin the time period is included. Erythrocyte Sedimentation Rate 32(H) 0 - 15 MM/HR [facility] Comment:Patients with polycy themia and many hemoglobin abnormalitiesmay have depressed sed rates whereas patients with anemiamay have elevated sed rates. 11/28/2024 1:38 PM EDT 11/28/2024 1:42 PM EDT Generic External Data Provider LAB BLOOD ORDERAB LES Final Result Performing Organization Address [facility] de Phone Number [facility] [address] [place] [phone] * (ABNORMAL) C-reactive Protein (11/28/2024 1:38 PM EDT) Only the most recent of2 resultswithin the time period is included. C Reactive Protein 10.97(H) < or = 0.50 mg/dL [facility] 11/28/2024 1:38 PM EDT 11/28/2024 1:42 PM EDT us Generic External Data Provider LAB BLOOD ORDERAB LES Final Result Performing Organization Address [facility] Co de Phone Number [facility] [address] [place] [phone] * Uric acid (11/28/2024 1:38 PM EDT) Uric Acid 6.3 3.4 - 7.0 mg/dL [facility] 11/28/2024 1:38 PM EDT 11/28/2024 1:42 PM EDT Generic External Data Provider LAB BLOOD ORDERAB LES Final Result Performing Organization Address [facility] Co de Phone Number [facility] [address] [place] [phone] * (ABNORMAL) Comprehensive Metabolic Panel (11/28/2024 1:38 PM EDT) Only the most recent of3 resultswithin the time period is included. Sodium 139 135 - 145 mmol/L [facility] Potassium 4.0 3.3 - 5.1 mmol/L [facility] Chloride 106 96 - 108 mmol/L [facility] Carbon Dioxide 25 22 - 29 mmol/L [facility] Anion Gap 12 12 - 20 [facility] Urea Nitrogen (BUN) 8(L) 9 - 16 mg/dL [facility] Creatinine, Serum 0.90 0.5 - 1.4 mg/dL [facility] Creatinine Clr Calc Pharmacy 16.7 [facility] Comment:eGFR (calculated fro m the MDRD study equation) and eCrCl(calculated from the Cockcroft-Gault equation) are based ondifferent parameters and may not yield comparable results.If eCrCl result is absurd, please check patient'sheight/weight. Estimated Glomerular Filt Rate >60 [facility] Comment:Chronic Kidney Disea se: Estimated GFR < 60 mL/min/1.40f2Kgqcwj Kidney Disease: Estimated GFR < 15 mL/min/1.73m2 Glucose 107 60 - 115 mg/dL [facility] Calcium 9.5 8.4 - 10.2 mg/dL [facility] Bilirubin, Total 0.5 0.0 - 1.0 mg/dL [facility] Aspartate Amino Transferase 17 5 - 37 U/L [facility] Alanine Aminotransferase 23 0 - 40 U/L [facility] Total Protein 7.4 6.5 - 8.0 g/dL [facility] Albumin Level 4.7 3.5 - 5.0 g/dL [facility] Alkaline Phosphatase 68 39 - 117 U/L [facility] 11/28/2024 1:38 PM EDT 11/28/2024 1:42 PM EDT us Generic External Data Provider LAB BLOOD ORDERAB LES Final Result [facility] [address] [place] [phone] * XR Foot 1-2 Views Left (11/28/2024 1:35 PM EDT) Anatomical Region Laterality Modality Lower Extremities, Foot Left Radiogra phic Imaging 11/28/2024 1:35 PM EDT Narrative 11/28/2024 1:52 PM EDT [address] [address] XRay Report Signed Patient: Bruce Manning MR#: [id number] : 1995 Acct:[id number] Age/Sex: 29 / M ADM Date: 11/28/24 Loc: HO.ED Attending Dr: Ordering Physician: Fabian Durán Date of Service: 11/28/24 Procedure(s): XR foot LT 2V Accession Number(s): [id number] cc: Fabian Durán; Edith Conde MD Reason [...] 11/28/24 1348 DD/ 1335 TD/TT: 11/28/24 1340 Criminal Research Specialist: Procedure Note Donotuseinterpreter, Image - 11/28/[address] [address] XRay Report Signed Patient: Bruce ManningMR#: [id number] : 1995Acct:[id number] Age/Sex: 29 / MADM Date: 11/28/24 Loc: HO.ED Attending Dr: Ordering Physician: Fabian Durán Date of Service: 11/28/24 Procedure(s): XR foot LT 2V Accession Number(s): [id number] cc: Fabain Durán; Edith Conde MD Reason for Exam: [...] 11/28/24 1348 DD/ 1335 TD/TT: 11/28/24 1340 Criminal Research Specialist: [facility] External Provider IMG XR PROCEDURES Final Result * XR Foot 3+ Views Left (11/25/2024 12:23 PM EDT) Anatomical Region Laterality Modality Lower Extremities, Foot Left Radiogra phic Imaging 11/25/2024 12:2 3 PM EDT Narrative 11/25/2024 12:37 PM EDT [address] [address] XRay Report Signed Patient: Bruce Manning MR#: [id number] : 1995 Acct:[id number] Age/Sex: 29 / M ADM Date: 11/25/24 Loc: HO.ED Attending Dr: Ordering Physician: Doris Montague NP Date of Service: 11/25/24 Procedure(s): XR foot LT min 3V Accession Number(s): [id number] cc: Edith Conde MD; Doris Montague NP [...] 11/25/24 1235 DD/ 1223 TD/TT: 11/25/24 1224 Criminal Research Specialist: Procedure Note Donotuseinterpreter, Image - 11/25/2024 [place] [address] XRay Report Signed Patient: Ric Manning#: [id number] : 1995Acct:[id number] Age/Sex: 29 / MADM Date: 11/25/24 Loc: .ED Attending Dr: Ordering Physician: Doris Montague NP Date of Service: 11/25/24 Procedure(s): XR foot LT min 3V Accession Number(s): [id number] cc: Edith Conde MD; Doris Montague NP [...] 11/25/24 1235 DD/ 1223 TD/TT: 11/25/24 1224 Criminal Research Specialist: [facility] External Provider IMG XR PROCEDURES Final Result * (ABNORMAL) Vitamin D, 25-Hydroxy, Total, Immunoassay (11/03/2024 2:20 PM EDT) Vitamin D 25-OH Total 28.5(L) >30 ng/mL [facility] Comment: Health Based Reference Values*< 20 ng/mL Fvyedillv58-90 ng/mL Insufficient> 30 ng/mL Sufficient*Susana ROBLERO. N [...] 2:20 PM EDT 11/03/2024 4:09 PM EDT Edith Conde MD LAB BLOOD ORDERABLES Final Resul t [facility] [address] [place] [phone] * Urinalysis, Complete, with Reflex to Culture (11/03/2024 2:20 PM EDT) Color Urine Yellow [facility] Appearance Urine Clear [facility] PH 6.5 5.0 - 9.0 [facility] Glucose Urine UA Negative Negative mg/dL [facility] Urine Blood Negative Negative [facility] Specific [place] - Urine 1.020 1.005 - 1.025 [facility] Urine Protein Trace Neg-Trace mg/dL [facility] Urine Ketones Negative Negative mg/dL [facility] Nitrite Urine Negative Negative [facility] Leukocyte Esterase Urine Negative Negative [facility] RBC Urine 0-2 0 - 2 /HPF [facility] Urine WBC 0-5 0 - 5 /HPF [facility] Urine Squamous Epithelial Cell 0-2 0 - 2 /HPF [facility] Urine Bacteria None Seen None Seen [facility] Hyaline Casts, Urine 0-2 0 - 2 /LPF [facility] Urine 11/03/2024 2:20 PM EDT 11/03/2024 4:03 PM EDT Narrative [facility] - 11/03/2024 4:29 PM EDT Urine, Clean Catch us Edith Conde MD LAB URINE ORDERABLES Final Resul t Performing Organization Address City/[facility]/ZIP Co de Phone Number [facility] [address] [place] [phone] * TSH with Reflex to Free T4 (11/03/2024 2:20 PM EDT) TSH reflex Free T4 1.13 0.32 - 4.0 uIU/mL [facility] Blood 11/03/2024 2:20 PM EDT 11/03/2024 4:09 PM EDT us Edith Conde MD LAB BLOOD ORDERABLES Final Resul t [facility] [address] [place] [phone] * (ABNORMAL) Lipid Panel with Reflex to Direct LDL (11/03/2024 2:20 PM EDT) Triglycerides 78 <150 mg/dL [facility] Comment:Desirable Triglyceri de: less than 150 mg/dLBorderline High Triglyceride 150-199 mg/dLHigh Triglyceride: 200-499 mg/dLVery High Triglyceride: greater than or equal to 5OO mg/dL Cholesterol 198 <200 mg/dL [facility] Comment:Desirable Cholestero l: less than 200 mg/dLBorderline High Cholesterol: 200-239 mg/dLHigh Cholesterol: greater than 239 mg/dL LDL Cholesterol Calculated 146(H) <100 mg/dL [facility] Comment:Desirable LDL: less than 100 mg/dLNear Optimal/Above Optimal LDL: 110- 129 mg/dLBorderline High LDL: 130-159 mg/dLHigh LDL: 160-189 mg/dLVery High LDL: greater than or equal to 190 mg/dL HDL Cholesterol 37(L) >40 mg/dL [facility] Comment:Desirable HDL: great er than 40 mg/dL Note: This HDL assay may give artificially low results in patients with liver disease. Blood 11/03/2024 2:20 PM EDT 11/03/2024 4:09 PM EDT Edith Conde MD LAB BLOOD ORDERABLES Final Resul t [facility] [address] [place] [phone] * Hepatitis C Antibody with Reflex to HCV, RNA, Quantitative, Real-Time PCR (11/03/2024 2:20 PM EDT) Hepatitis C Antibody Nonreactive Nonreactive [facility] Comment:Antibodies to HCV no t detected; does not exclude early acuteHCV infection. Venous blood specimen / Unknown 11/03/2024 2:20 PM EDT 11/03/2024 4:09 PM EDT Edith Conde MD LAB BLOOD ORDERABLES Final Resul t Performing Organization Address City/[facility]/ZIP Co de Phone Number [facility] [address] [place] [phone] * Hepatitis A Antibody, Total (11/03/2024 2:20 PM EDT) Hepatitis A Antibody IgG Nonreactive Nonreactive [facility] Venous blood specimen / Unknown 11/03/2024 2:20 PM EDT 11/03/2024 4:09 PM EDT Edith Conde MD LAB BLOOD ORDERABLES Final Resul t Performing Organization Address [facility] Co de Phone Number [facility] [address] [place] [phone] * HIV-1/2 Antigen and Antibodies, Fourth Generation, with Reflexes (11/03/2024 2:20 PM EDT) HIV AB/AG Nonreactive Nonreactive [facility] Comment:HIV-1 p24 Ag and/or HIV-1/HIV-2 Ab not detected.A test result that is nonreactive does not exclude thepossibility of exposure to or infection with HIV-1 and/orHIV-2. Nonreactive results in this assay for individualswith prior exposure to HIV-1 and/or HIV-2 may be due toantigen and antibody levels that are below the limit ofdetection of this assay.The [employer] HIV Ag/Ab Combo assay result andsupplemental assay results should be interpreted inconjunction with the patient's clinical presentation,history and other laboratory results. If the results areinconsistent with clinical evidence, additional testing issuggested to confirm the result. Venous blood specimen / Unknown 11/03/2024 2:20 PM EDT 11/03/2024 4:09 PM EDT Edith Conde MD LAB BLOOD ORDERABLES Final Resul t [facility] [address] [place] [address] [phone] * XR Chest 1 View (10/12/2024 3:25 AM EDT) Anatomical Region Laterality Modality Chest Radiographic [place] 10/12/2024 3:25 AM EDT Narrative 10/12/2024 3:27 AM EDT [address] [address] XRay Report Signed Patient: Bruce Manning MR#: [id number] : 1995 Acct:[id number] Age/Sex: 29 / M ADM Date: 10/12/24 Loc: HO.ED Attending Dr: Ordering Physician: Generic ED Physician Date of Service: 10/12/24 Procedure(s): XR chest 1V Accession Number(s): [id number] cc: Generic ED Physician; Edith Conde MD [...] signed by Davi Medina MD in OV> 10/12/24 0326 DD/ 0325 TD/TT: 10/12/24 032 Criminal Research Specialist: Procedure Note Donotuseinterpreter, Image - 10/12/[address] [address] XRay Report Signed Patient: Bruce ManningMR#: [id number] : 1995Acct:[id number] Age/Sex: 29 / MADM Date: 10/12/24 Loc: HO.ED Attending Dr: Ordering Physician: Generic ED Physician Date of Service: 10/12/24 Procedure(s): XR chest 1V Accession Number(s): [id number] cc: Generic ED Physician; Edith Conde MD [...] in OV> 10/12/24325 DD/ 4 TD/TT: 10/12/24324 Criminal Research Specialist: [facility] External Provider IMG XR PROCEDURES Final Result * Strep A Nucleic Acid (10/12/2024 3:17 AM EDT) IDNOW SERIAL# [id number] [facility] Strep A Nucleic Acid Invalid Negative [facility] Comment:All test results mus t be correlated with clinical findings.This test has not been evaluated for monitoring treatment ofinfection.Additional follow-up testing using the culture method isrequired if the result is negative and clinical symptomspersist, or in the event of an acute rheumatic feveroutbreak. 10/12/2024 3:17 AM EDT 10/12/2024 3:24 AM EDT Generic External Data Provider LAB MICROBIOLOGY - GENERAL ORDERABLES Final Result [facility] [address] [place] [address] [phone] * Hemoglobin A1c (04/19/2023 11:09 AM EST) Hemoglobin A1c 5.4 <6.0 % [facility] Comment:Hemoglobin A1C Refer ence Range Adults: 4.8 - 6.0 % Non diabetic: < 6.0 % Goal: < 7.0 %Additional Action Suggested: > 8.0 %Note: Hemoglobin A1c results are invalid for patients with abnormal amounts of HbF. Blood transfusions may impact the HbA1c concentration in the patient sample. Estimated Average Glucose 108 mg/dL [facility] Comment:eAG = Estimated ave rage glucose which is %A1C expressed asaverage glucose, using the formula of the [id number] Glucose study (ADAG), Diabetes Care, Vol.31,#8,2007 Blood Venous blood specimen / Unknown 04/19/2023 11:09 AM EST 04/19/2023 12:57 PM EST us Edith Conde MD LAB BLOOD ORDERABLES Final Resul t [facility] [address] [place] [address] [phone] from Last 3 Months or Most Recently Relevant to Health Maintenance [facility] Care Teams String Laster Relationship Specialty Start Date End Date Edith Conde MD [address] [place] [address] PCP - General Family Medicine 02/12/18
--- OUTSIDE RECORDS SUMMARY | 2025-01-02 14:15 | XMS_ITS | Encounter Summary ---
Author Organization [employer] Address [address] [facility] [address] [place] [address] Care Team Providers Care Commission Clerk Name Role Phone Edith Conde MD Primary Care Provider [phone] Encounter Details Date Type Department Care Team ([facility] Contact Info) Description 05/15/2023 Orders Only [facility] MEDICINE [address] [place] [address] Edith Conde MD [address] [place] [address] Vision impairment (Primary Dx) Social History Tobacco [...] as of this encounter Plan of Treatment Upcoming Encounters Date Type Department Care Team (Late Contact Info) Description 03/26/2025 2:00 PM EST Office Visit [facility] OPTOMETRY [address] [place] [address] Deborah Narayan, OD [address] [place] [address] documented as of this encounter Visit Diagnoses Diagnosis Vision impairment- Primary Unspecified visual loss documented in this encounter Care Teams Commission Clerk Relationship Specialty Start Date End Date Edith Conde MD [address] [place] [address] PCP - General Family Medicine 02/12/18 documented as of this encounter
== END 2025-01-02 15:44 | disposition home or self-care (01) ==
LOC: HO.HKA 13:45
PROVIDERS: PCP Family Medicine; Visit Provider Internal Medicine Critical Care Medicine
DX: I10 Essential (primary) hypertension (principal); N17.9 Acute kidney failure, unspecified
CPT/HCPCS: 99214